=== PATIENT | female | born 1980 | race Caucasian/White ===

== ENCOUNTER 2018-03-03 12:18 | Emergency (ER) | payer MEDICAID, SELFPAY ==
[2018-03-03 12:23] VITALS: BP 121/90; PULSE 80; RESP 16; TEMP 36.9; O2SAT 100
--- NOTE | 2018-03-03 12:33 | DI.RAD_ITS ---
SYMPTOM/DIAGNOSIS: FALL, POSTERIOR R PAIN PA CHEST, RIGHT RIBS: 03/03 PA chest and 2 additional views of the right ribs were obtained. No rib fracture seen. The heart is not enlarged. The lungs are clear and hyperinflated. CONCLUSION: No evidence of acute disease. Presumed COPD
--- NOTE | 2018-03-03 12:34 | W.ED.GENAD ---
Discharge Plan Disposition Patient Disposition: HOME Condition: Improving Discharge Details Chief Complaint: Nk/Back Pain Clinical Impression: Contusion of rib on right side Primary Care Provider: Don Britton ED Provider: Nakul Arevalo Home Meds and New Rx's Prescriptions: Continued aspirin [Aspir-81] 81 MG tablet,delayed release (DR/EC) 81 mg PO DAILY RF: 0 amlodipine 2.5 MG tablet 2.5 mg PO DAILY RF: 0 levothyroxine 100 MCG tablet 100 mcg PO DAILY RF: 0 amlodipine 5 MG tablet 5 mg PO DAILY RF: 0 cholecalciferol (vitamin D3) [Vitamin D3] 1,000 unit Tablet 3,000 unit PO DAILY RF: 0 Discharge Instructions Instructions: Rib Contusion (ED) Additional Instructions: Remove lidocaine patch this evening. May apply ice to reduce pain and swelling. May use Tylenol and/or ibuprofen if needed for pain. Return if you develop a fever, cough, worsening discomfort, or any other concerns Medical Decision Making 37-year-old female presents emerged department ending of right-sided back and chest pain after slip and fall on the ice last night. She did not strike her head or her neck. No injuries below the chest. She is afebrile, well-appearing. Differential diagnosis includes contusion or underlying rib fracture. Patient referred for radiographs and given ibuprofen for pain. Her diagnostic studies do not reveal acute underlying bony injury. Patient given trial of lidocaine patch for 12 hours, she may continue NSAIDs as well as ice. Return precautions to the ER were discussed prior to discharge. HPI General Mode of arrival: ambulatory. Date/Time Provider Initiated Documentation: 03/03/18 12:23. Limitations to Documentation: no limitations. Information obtained by: patient. History of Present Illness described as moderate, Quality is described as aching, and is localized to the chest and left. Patient reports no radiation. Patient started experiencing this hour(s) and it has been constant. Movement worsens symptoms . Patient notes no other symptoms.; denies shortness of breath. Related Data Home Medications Medication Instructions Recorded Confirmed amlodipine 5 mg PO DAILY 11/16/16 03/03/18 amlodipine 2.5 mg PO DAILY 04/25/17 03/03/18 levothyroxine 100 mcg PO DAILY 06/06/17 03/03/18 aspirin [Aspir-81] 81 mg PO DAILY tab-cap 06/12/17 03/03/18 cholecalciferol (vitamin D3) 3,000 unit PO DAILY 03/03/18 03/03/18 [Vitamin D3] Allergies Allergy/AdvReac Type Severity Reaction Status Date / Time cephalexin AdvReac Intermediate Skin Rash Unverified 03/03/18 12:28 General Stated Complaint: Nk/Back Pain JOYCE: 4 Review of Systems Review of Systems 6 systems reviewed and otherwise - [facility] Medical History Fracture of left clavicle (Acute) Fracture of wrist (Acute) Hypothyroidism (Chronic) Stroke (Chronic) Family History Mother Hypothyroid Lupus Neoplasm Father ALS (amyotrophic lateral sclerosis) Grandmother Neoplasm Social History Smoking/Tobacco Use Status: Never alcohol intake: never substance use type: does not use Exam Narrative Exam Narrative: GEN: awake, alert, oriented 3. Pleasant, well groomed, interactive. HEAD: Normocephalic, atraumatic ENT: Mucous membranes moist, oropharynx unremarkable, External ear exam unremarkable EYES: PERRL, EOMI NECK: Full ROM, no BARBARA, no menigismus CHEST/RESP: R posterior thoracic back tender cloth printing to palpation. No midline tenderness or step-off, clear to auscultation bilateral, no wheeze/rhonchi/rales CARDIOVASCULAR: RRR, no murmur, rub nataliia. 2+ Rad pulse bilateral ABDOMEN: Soft, nontender, no mass. +Bowel sounds EXT: Full ROM, no edema, no rash Neuro: Grossly normal neurologic exam, conversant, interactive. Psych: Speech fluent, thoughts congruent, affect normal Course Vital Signs Temperature 36.9 C 03/03/18 12:23 Pulse 80 03/03/18 12:23 Respiratory Rate 16 03/03/18 12:23 Blood Pressure 121/90 03/03/18 12:23 Pulse Oximetry 100 03/03/18 12:23 Temperature 36.9 C 03/03/18 12:23 Temperature Source Skin 03/03/18 12:23 Pulse 80 03/03/18 12:23 Respiratory Rate 16 03/03/18 12:23 Respiratory Effort Non-Labored 03/03/18 12:25 Blood Pressure 121/90 03/03/18 12:23 Pulse Oximetry 100 03/03/18 12:23 Pain Level 10 03/03/18 12:23
[2018-03-03] MEDS: Ibuprofen 800 MG TAB PO (13:04)
--- NOTE | 2018-03-03 13:32 | DI.VRAD_ITS ---
EXAM: XR Right Ribs with PA Chest, 3 Views EXAM DATE/TIME: 03/03/2018 12:34 PM CLINICAL HISTORY: 37 years old, female; Injury or trauma; Fall; Initial encounter; Rib area; Blunt trauma (contusions or hematomas); Injury date: 03/02; Patient HX: Fall, posterior rib pain; Additional info: Per PT: Fall occurred evening of 03/02 TECHNIQUE: XR Right ribs 3 views with PA chest. COMPARISON: CR RIGHT CLAVICLE LIMITED 1 VIEW 07/10/2017 10:59 AM FINDINGS: Lungs: Hyperexpanded lung crowley consistent with COPD Pleural space: Unremarkable. No pleural effusion. No pneumothorax. Heart/Mediastinum: Unremarkable. No cardiomegaly. Bones/joints: Healed distal right clavicle fractures. No acute fracture IMPRESSION: Hyperexpanded lung crowley consistent with COPD No acute fracture Dictated and Authenticated by: Ben Schaefer MD. Ordering:DEENA Mota MD
[2018-03-03] MEDS: Lidocaine 5% Patch 1 PATCH TP (13:41)
== END 2018-03-03 13:45 | disposition home or self-care (01) ==
PROVIDERS: Emergency Provider Emergency Medicine; PCP General Practice
DX: S20.221A Contusion of right back wall of thorax, initial encounter (principal); W00.0XXA Fall on same level due to ice and snow, initial encounter
CPT/HCPCS: 99283; 71046; 71100

== ENCOUNTER 2018-05-10 14:53 | Outpatient (REF) | payer MEDICAID, SELFPAY | END 2018-05-10 15:13 | LOC: LBN 14:53 | PROVIDERS: PCP General Practice; Visit Provider General Practice | DX: N39.0 Urinary tract infection, site not specified (principal) | CPT/HCPCS: 87077; 87086; 87186 ==

== ENCOUNTER 2018-10-24 08:01 | Outpatient (CLI) | payer MEDICAID, SELFPAY ==
[2018-10-24 09:03] LABS: HCT 41.9 % (36.0-46.0); HGB 14.5 g/dL (12.0-15.5)
[2018-10-24 10:15] LABS: Glucose 88 mg/dL (70-100); TSH 0.27 uIU/mL (0.36-3.74)
== END 2018-10-24 08:21 ==
PROVIDERS: PCP General Practice; Visit Provider General Practice
DX: I95.9 Hypotension, unspecified (principal); E03.9 Hypothyroidism, unspecified; R73.09 Other abnormal glucose
CPT/HCPCS: 36415; 82947; 84443; 85014; 85018

== ENCOUNTER 2018-12-04 08:10 | Outpatient (CLI) | payer MEDICAID, SELFPAY ==
[2018-12-04 10:07] LABS: TSH 2.83 uIU/mL (0.36-3.74)
== END 2018-12-04 08:30 ==
PROVIDERS: PCP General Practice; Visit Provider General Practice
DX: E03.9 Hypothyroidism, unspecified (principal)
CPT/HCPCS: 36415; 84443

== ENCOUNTER 2019-04-16 02:14 | Outpatient (CLI) | payer MEDICAID, SELFPAY ==
--- NOTE | 2019-04-16 15:49 | DI.DEXA_ITS ---
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 Findings for left hip scanning are T-score -3.6 with left femoral neck T-score -3.5. Findings for lumbar spine scanning are T-score -4.9. Findings for left forearm scanning are T-score -4.6. IMPRESSION: Findings are consistent with osteoporosis according to WHO criteria. Lateral vertebral scanogram show s no definite vertebral compression fracture.
--- NOTE | 2019-04-16 16:18 | DI.MAMMO_ITS ---
EXAM: MAMMO SCREENING CLINICAL HISTORY: [id number], FAM HX BREAST CANCER Z80.3 TECHNIQUE: Mammograms were interpreted according to the usual protocol including computer analysis w [employer] CAD system, tomosynthesis and C-view imaging. FINDINGS: The breasts are of moderate density with fairly symmetrical distribution of fibroglandular tissue. N o dominant mass or clumped microcalcification is identified in either breast. Today's examination is a baseline examination. IMPRESSION: No specific evidence of malignancy at this time. Routine screening examinations are suggested at year ly intervals due to the family history of breast carcinoma. Category 1. Breast density, category B. BI-RADS Cat 1 - Negative. Breast Density - Category B - Scattered areas of fibroglandular density.
== END 2019-04-16 02:34 ==
PROVIDERS: PCP General Practice; Visit Provider Nurse Practitioner Women's Health
DX: Z12.31 Encounter for screening mammogram for malignant neoplasm of breast (principal); Z80.3 Family history of malignant neoplasm of breast; E28.39 Other primary ovarian failure; M81.0 Age-related osteoporosis without current pathological fracture
CPT/HCPCS: 77063; 77067; 77080

== ENCOUNTER 2020-07-20 03:28 | Outpatient (CLI) | payer MEDICAID, SELFPAY ==
[2020-07-20 14:12] LABS: Anion Gap 7.2 mmol/L (3-11); BUN 16 mg/dL (7-18); CO2 30.8 mmol/L (21.0-32.0); CREATININE 0.8 mg/dL (0.55-1.02); Calcium 9.7 mg/dL (8.5-10.1); Chloride 105 mmol/L (98-107); Glucose 79 mg/dL (74-106); Potassium 4.4 mmol/L (3.5-5.1); Sodium 143 mmol/L (136-145); TSH (W/Ref FT4) 4.61 uIU/mL (0.36-3.74)
[2020-07-20 14:33] LABS: FREE T4 1.07 ng/dL (0.76-1.46)
[2020-07-22 01:12] LABS: Vitamin D 25 Total 86.5 ng/mL (30-100)
== END 2020-07-20 03:29 | disposition home or self-care (01) ==
LOC: LBO 03:28
PROVIDERS: PCP Internal Medicine; Visit Provider Internal Medicine
DX: I10 Essential (primary) hypertension (principal); E03.9 Hypothyroidism, unspecified; E55.9 Vitamin D deficiency, unspecified; M81.0 Age-related osteoporosis without current pathological fracture
CPT/HCPCS: 36415; 80048; 82306; 84439; 84443

== ENCOUNTER 2020-08-03 02:54 | Outpatient (RCR) | payer MEDICAID, SELFPAY ==
[2020-08-03] MEDS: Normal Saline Flush 10 ML SYR IVP (13:25)
== END 2020-08-09 23:59 | disposition home or self-care (01) ==
LOC: INF 02:54
PROVIDERS: PCP Internal Medicine; Visit Provider Internal Medicine
DX: M81.0 Age-related osteoporosis without current pathological fracture (principal)
CPT/HCPCS: 96365; J3489

== ENCOUNTER 2021-02-10 02:42 | Outpatient (CLI) | payer MEDICAID, SELFPAY ==
[2021-02-10 12:02] LABS: Lipase 77 U/L (73-393)
[2021-02-11 21:15] LABS: Tissue Transglutaminase Ab IgA <1.2 U/mL
== END 2021-02-10 02:43 | disposition home or self-care (01) ==
LOC: LBO 02:42
PROVIDERS: PCP Internal Medicine; Visit Provider Internal Medicine
DX: K52.9 Noninfective gastroenteritis and colitis, unspecified (principal)
CPT/HCPCS: 36415; 83690; 83516

== ENCOUNTER 2021-08-10 03:35 | Outpatient (RCR) | payer MEDICAID, SELFPAY ==
[2021-08-10] MEDS: Normal Saline Flush 10 ML SYR IVP (12:49)
[2021-08-10] MEDS: ZOLEDRONIC ACID/MANNITOL/WATER 5 MG/100 ML BTL 300 MG IVPB (12:49)
== END 2021-09-08 23:59 | disposition home or self-care (01) ==
LOC: INF 03:35
PROVIDERS: PCP Internal Medicine; Visit Provider Internal Medicine
DX: M81.0 Age-related osteoporosis without current pathological fracture (principal)
CPT/HCPCS: 96365; J3489

== ENCOUNTER 2021-08-13 10:29 | Emergency (ER) | payer MEDICAID, SELFPAY ==
[2021-08-13 10:32] VITALS: BP 134/89; PULSE 67; RESP 16; TEMP 36.6; O2SAT 99
--- NOTE | 2021-08-13 10:40 | ED.GENADUL_ITS ---
Discharge Plan Disposition Patient Disposition: HOME Condition: Improving Discharge Details Clinical Impression: Dizziness, Nausea Primary Care Provider: Corrie Hurtado ED Provider: Xiomy Judd Home Meds and New Rx's Prescriptions: Continued calcium-vitamin D3-vitamin K [Viactiv] 650 mg-12.5 mcg-40 mcg tablet,chewable 2 tab PO DAILY amlodipine 5 mg tablet 5 mg PO DAILY Qty: 90 3RF zoledronic [id number]-jcdrk [Reclast] 5 mg/100 mL piggyback See Rx Instructions IV ONCE Qty: 100 0RF Rx Instructions: 5mg IV once; administer over at least 15 mins aspirin [Aspir-81] 81 MG tablet,delayed release (DR/EC) 81 mg PO DAILY levothyroxine [Synthroid] 88 mcg tablet 88 mcg PO DAILY Qty: 90 2RF Discharge Instructions Instructions: Acute Nausea and Vomiting (ED), Dizziness (ED) Additional Instructions: Your lab work, EKG and imaging today is reassuring and shows no evidence of acute concerning or significant findings. Drink plenty of fluids and get plenty of rest. Alternate tylenol and motrin as needed and directed for pain. Follow-up with your primary care doctor in 1 week. Return to the emergency department with any worsening or new concerning symptoms. Please be aware that you were seen during a time of global shortage of iodinated contrast media. This means an alternative approach to your diagnosis and treatment may have been employed in order to provide optimal care during this shortage. If you have any worsening symptoms, please go to the nearest Emergency Department or call 911 immediately. Discharge Data Discharge Date/Time-TO BE ENTERED AT DEPARTURE: 08/13/21 13:36 Discharge Physician: Xiomy Judd Medical Decision Making 1045 -- 41-year-old female with a history Spence syndrome, carotid artery dissection with, carotid artery stent placement, hypertension, hypothyroidism, irritable bowel syndrome and depression presents with intermittent dizziness, nausea and dry heaving with a 20-minute episode of blurry vision earlier today. She currently denies any symptoms other than my head feeling heavy . She states her symptoms appear inconsistent with her previous carotid dissection in which she had severe headache, and left-sided weakness and numbness which she states she does not have today. She states this is the fifth episode of this dizziness, nausea and blurry vision over the past 2 weeks but states today's episode is lasting longer than usual. Patient appears comfortable and nontoxic. She is easily ambulatory around the room. Vitals are within normal limits. Her abdomen is soft and nontender. She has no focal deficits or meningeal signs. Differential diagnosis includes dehydration, electrolyte abnormality, acute viral process, influenza, COVID-19, UTI, arrhythmia. History and presentation does not appear consistent with subarachnoid hemorrhage and she denies any thunderclap sensation or sudden onset of headache. History and presentation does not appear consistent with meningitis, PE or dissection. Will place an IV, bolus IV fluids, screening labs, urinalysis, urine , CT head, chest x-ray and EKG. Due to global IV contrast shortage, will hold on CT head imaging with IV contrast as her presentation does not appear consistent with acute CVA at this time and patient is agreeable with this plan. 1320 --labs and imaging reviewed and unremarkable. Normal white blood cell count. Normal electrolytes. Urinalysis notes 3-5 WBCs with trace leukocyte esterase, many bacteria but also with many epithelial cells but appears contaminated. She has no urinary symptoms so we will hold on treatment for UTI at this time. Fluvid negative. CT head and chest x-ray negative. Visual acuity notes 20/40 bilaterally corrected. Patient reassessed and she is requesting to go home. She was able to take p.o. and denies any symptoms at this time. Advised to increase fluids, rest. She was offered Zofran for home but declined. Advised to follow up with the primary care doctor for re-evaluation. Usual and customary return precautions given prior to discharge. Medical Records Medical records reviewed: Yes I reviewed the patient's medical records. Imaging Data Radiologic Study: Radiologist's impression: CT Head Without Contrast Exam date and time: 08/13/2021 11:56 AM Age: 41 years old Clinical indication: Dizziness; Patient HX: R/O acute disease. TECHNIQUE: Imaging protocol: Computed tomography of the head without contrast. Radiation optimization: All CT scans at this facility use at least one of these dose optimization techniques: automated exposure control; mA and/or kV adjustment per patient size (includes targeted exams where dose is matched to clinical indication); or iterative reconstruction. COMPARISON: CT HEAD WITHOUT CONTRAST 11/16/2016 11:28 AM FINDINGS: Brain: No acute infarction. No intracranial hemorrhage. No mass effect or midline shift. Stable chronic lacunar infarct in the right caudate head. Cerebral ventricles: Stable asymmetry of the lateral ventricles. No hydrocephalus. Paranasal sinuses: Mild ethmoid sinus disease. Mastoid air cells: Visualized mastoid air cells are well aerated. Orbital cavities: Mild symmetric prominence of the lacrimal glands of uncertain significance. Otherwise, unremarkable. Bones/joints: No calvarial fracture.? Soft tissues: Unremarkable. IMPRESSION: No acute intracranial abnormality. No significant interval change. XR Chest Exam date and time: 08/13/2021 12:01 PM Age: 41 years old Clinical indication: Other: Dizziness, R/O acute disease TECHNIQUE: Imaging protocol: XR of the chest. Views: 2 views. COMPARISON: CR XR ribs RT PA chest 3V 03/03/2018 12:49 PM FINDINGS: Lungs: No consolidation. Hyperexpanded lungs, possibly COPD. Pleural spaces: Unremarkable. No pleural effusion. No pneumothorax. Heart/Mediastinum: Cardiomediastinal countour within normal limits.? Bones/joints: Redemonstration of a healed distal right clavicular fracture. IMPRESSION: No acute cardiopulmonary process. No significant change. Lab Data Lab results reviewed: Yes I reviewed the patient's lab results. Labs: Laboratory Tests Range/Units 08/13/21 08/13/21 08/13/21 11:25 11:25 11:25 WBC (4.4-10.8) 10^3/uL 6.73 RBC (3.93-5.22) 10^6/uL 4.31 Hgb (11.2-15.7) g/dL 15.3 Hct (36.0-46.0) % 45.9 MCV (80-95) fL 107 H MCH (27.0-33.0) pg 35.5 H MCHC (32.0-36.0) % 33.3 RDW (11.7-14.6) % 11.6 L Plt Count (130-400) 10^3/uL 239 MPV (8.0-11.0) fL 10.5 Immature Gran % 0.1 Neutrophils % 69.8 Lymphocytes % 21.8 Monocytes % 7.0 Eosinophils % 0.9 Basophils % 0.4 Nucleated RBC % (0.0-0.3) % 0.0 Absolute Neutrophils (1.2-6.7) 10^3/uL 4.69 Absolute Lymphocytes (1.2-3.4) 10^3/uL 1.47 Absolute Monocytes (0.1-0.8) 10^3/uL 0.47 Absolute Eosinophils (0.0-0.7) 10^3/uL 0.06 Absolute Basophils (0.0-0.2) 10^3/uL 0.03 RBC Morphology See Below Macrocytosis 2+ Sodium (136-145) mmol/L 140 Potassium (3.5-5.1) mmol/L 3.9 Chloride (98-107) mmol/L 105 Carbon Dioxide (21.0-32.0) mmol/L 28.0 Anion Gap (3-11) mmol/L 7.0 BUN (7-18) mg/dL 8 Creatinine (0.55-1.02) mg/dL 0.8 Estimated GFR/1.73 m2 (mL/min/1.73m2) >= 60.00 Glucose (74-106) mg/dL 106 Calcium (8.5-10.1) mg/dL 8.7 Total Bilirubin (0.2-1.0) mg/dL 0.7 AST (15-37) U/L 21 ALT (14-59) U/L 19 Alkaline Phosphatase (46-116) U/L 66 Total Protein (6.4-8.2) g/dL 7.7 Albumin (3.4-5.0) g/dL 4.0 TSH (0.36-3.74) uIU/mL Urine Color (Yellow) Urine Clarity (Clear) Urine pH (5-8) Ur Specific [place] (1.005-1.025) Urine Protein (Negative) mg/dL Urine Ketones (Negative) mg/dL Urine Blood (Negative) Urine Nitrite (Negative) Urine Bilirubin (Negative) Urine Urobilinogen (Up TO 0.2) EU/dL Ur Leukocyte Esterase (Negative) Urine RBC (0-2) HPF Urine WBC (0-5) HPF Ur Epithelial Cells (Negative) HPF Urine Crystals (Negative) HPF Urine Bacteria (Negative) HPF Urine Casts (Negative) LPF Urine Mucus (Negative) Ur Culture Indicated? Urine Glucose (Negative) mg/dL COVID-19 Source Nasopharynx SARS-CoV-2 (PCR) (Negative) Negative Influenza Type A (PCR) (Negative) Negative Influenza Type B (PCR) (Negative) Negative RSV (PCR) (Negative) Negative Range/Units 08/13/21 08/13/21 11:25 11:25 WBC (4.4-10.8) 10^3/uL RBC (3.93-5.22) 10^6/uL Hgb (11.2-15.7) g/dL Hct (36.0-46.0) % MCV (80-95) fL MCH (27.0-33.0) pg MCHC (32.0-36.0) % RDW (11.7-14.6) % Plt Count (130-400) 10^3/uL MPV (8.0-11.0) fL Immature Gran % Neutrophils % Lymphocytes % Monocytes % Eosinophils % Basophils % Nucleated RBC % (0.0-0.3) % Absolute Neutrophils (1.2-6.7) 10^3/uL Absolute Lymphocytes (1.2-3.4) 10^3/uL Absolute Monocytes (0.1-0.8) 10^3/uL Absolute Eosinophils (0.0-0.7) 10^3/uL Absolute Basophils (0.0-0.2) 10^3/uL RBC Morphology Macrocytosis Sodium (136-145) mmol/L Potassium (3.5-5.1) mmol/L Chloride (98-107) mmol/L Carbon Dioxide (21.0-32.0) mmol/L Anion Gap (3-11) mmol/L BUN (7-18) mg/dL Creatinine (0.55-1.02) mg/dL Estimated GFR/1.73 m2 (mL/min/1.73m2) Glucose (74-106) mg/dL Calcium (8.5-10.1) mg/dL Total Bilirubin (0.2-1.0) mg/dL AST (15-37) U/L ALT (14-59) U/L Alkaline Phosphatase (46-116) U/L Total Protein (6.4-8.2) g/dL Albumin (3.4-5.0) g/dL TSH (0.36-3.74) uIU/mL 0.84 Urine Color (Yellow) Yellow Urine Clarity (Clear) Clear Urine pH (5-8) 7.5 Ur Specific [place] (1.005-1.025) 1.020 Urine Protein (Negative) mg/dL 30 H Urine Ketones (Negative) mg/dL Negative Urine Blood (Negative) Negative Urine Nitrite (Negative) Negative Urine Bilirubin (Negative) Negative Urine Urobilinogen (Up TO 0.2) EU/dL 0.2 Ur Leukocyte Esterase (Negative) Trace H Urine RBC (0-2) HPF 0-2 Urine WBC (0-5) HPF 3-5 Ur Epithelial Cells (Negative) HPF Many Urine Crystals (Negative) HPF Negative Urine Bacteria (Negative) HPF Many Urine Casts (Negative) LPF Negative Urine Mucus (Negative) Trace Ur Culture Indicated? No/Sq. Contamination Urine Glucose (Negative) mg/dL Negative COVID-19 Source SARS-CoV-2 (PCR) (Negative) Influenza Type A (PCR) (Negative) Influenza Type B (PCR) (Negative) RSV (PCR) (Negative) ECG Data Attestation: I personally reviewed and interpreted this ECG (s) as follows: Interpretation: Rate of 64, sinus, normal axis, no STEMI. HPI General Mode of arrival: ambulatory . Date/Time Provider Initiated Documentation: 08/13/21 10:30 . Limitations to Documentation: no limitations . Information obtained by: patient . HPI Narrative: Patient is a 41-year-old female with a history of Spence syndrome, carotid artery dissection, hypertension, hypothyroidism, depression, common carotid artery stent placement who presents with dizziness, nausea and dry heaving since 6 AM this morning. She states she mostly has the symptoms when she is up and walking around. She states she currently feels like my head is heavy but denies any headache. She states she woke up this morning and felt dizzy which she described as a lightheadedness sensation while in bed. She states when she got up and walked around her dizziness became worse and she had nausea and dry heaving. She states around this time she attempted to look at her phone and her vision appeared blurry. She states the blurry vision lasted approximately 20 minutes and then resolved. She currently denies any dizziness or nausea. She states she was not able to actually vomit anything and was mainly dry heaving. She states she had 2 episodes of watery brown diarrhea yesterday which not unusual for her. She states this is the fifth episode of the symptoms occurring over the last 2 weeks. She states she has not sought any medical care for the symptoms since this started. She states episode today is different and that it is lasting longer than usual. She states her history of carotid artery dissection presentation is very different from today and that with her dissection she had severe headache with left face, arm and leg numbness and weakness and she denies any B symptoms at present. She denies otherwise recent illness including fever, sore throat, ear pain, chest pain, shortness of breath or urinary symptoms. She states she is fully vaccinated for COVID including a booster and denies any known exposure to coronavirus. Related Data Home Medications Medication Instructions Recorded Confirmed aspirin 81 mg tablet,delayed 81 mg PO DAILY 06/12/17 08/13/21 release (Aspir-) calcium 650 mg-vitamin D3 12.5 2 tab PO DAILY 12/24/19 08/13/21 mcg-vitamin K 40 mcg chewable tablet (Viactiv) zoledronic acid 5 mg/100 mL in See Rx Instructions IV ONCE #100 mL 06/22/20 08/13/21 mannitol 5 %-water intravenous piggybck (Reclast) amlodipine 5 mg tablet 5 mg PO DAILY #90 tabs 01/19/21 08/13/21 levothyroxine 88 mcg tablet 88 mcg PO DAILY #90 tabs 08/12/21 08/13/21 (Synthroid) Previous Rx's Medication Instructions Recorded zoledronic acid 5 mg/100 mL in See Rx Instructions IV ONCE #100 mL 06/22/20 mannitol 5 %-water intravenous piggybck (Reclast) amlodipine 5 mg tablet 5 mg PO DAILY #90 tabs 01/19/21 levothyroxine 88 mcg tablet 88 mcg PO DAILY #90 tabs 08/12/21 (Synthroid) Allergies Allergy/AdvReac Type Severity Reaction Status Date / Time ragweed pollen Allergy Intermediate stuffy, Verified 08/13/21 10:38 sneezing cephalexin Allergy Mild Skin Rash Verified 08/13/21 10:38 General Stated Complaint: Dizzy/Sync JOYCE: 3 Review of Systems All systems reviewed & are unremarkable except as noted in HPI and below Constitutional Constitutional: Denies chills, Denies excessive sweating, Denies fatigue, Denies fever(s), Denies weakness and Denies weight loss Eyes Eyes: Reports system reviewed and no additional complaints, except as documented and Denies blurry vision ENT Ears, Nose, Mouth, and Throat: Denies vertigo, Reports dizziness, Denies otalgia, Denies nasal congestion, Denies sore throat and Denies throat swelling Cardiovascular Cardiovascular: Denies chest pain, Denies syncope, Denies rapid heart rate and Denies dyspnea Respiratory Respiratory: Denies chest congestion, Denies cough, Denies pain on inspiration and Denies dyspnea Gastrointestinal Gastrointestinal: Denies abdominal pain, Denies diarrhea, Reports nausea and Denies vomiting Genitourinary Genitourinary: Denies hematuria, Denies dysuria and Denies flank pain Musculoskeletal Musculoskeletal: Denies back pain and Denies joint swelling Integumentary/Breasts Skin/Breast: Denies lesions and Denies rash Neurologic Neurologic: Denies behavioral changes, Denies confusion, Denies vertigo, Reports dizziness, Denies syncope, Denies localized weakness and Denies weakness Psychiatric Psychiatric: Denies behavioral changes, Denies confusion and Denies depression Endocrine Endocrine: Denies excessive sweating and Denies fatigue Hematologic/Lymphatic Hematologic/Lymphatic: Denies easy bruising and Denies lymphadenopathy Allergic/Immunologic Allergic/Immunologic: Denies throat swelling PFSH All Active Problems (Updated 08/13/21 @ 13:32 by Xiomy Judd DO) Dizziness (Acute) Nausea (Acute) Insomnia (Chronic) Urinary frequency (Chronic) 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 Vitamin D deficiency (Chronic) Stroke (Chronic ~11/13/16) (R) MCA s/p TPA due to (R) ICA dissection Osteoporosis (Chronic ~2018) Medical History (Updated 08/13/21 @ 13:32 by Xiomy Judd DO) Carotid artery dissection Depression Femoral artery occlusion, right (~10/2017) Hypertension Hypothyroidism (10/30/17) Irritable bowel syndrome Spence's syndrome (08/1980) Surgical History (Updated 12/24/19 @ 20:41 by Corrie Hurtado MD) H/O fasciotomy (~10/29/17) History of common carotid artery stent placement S/P arthroscopy of left shoulder (~2001) Family History (Updated 12/09/19 @ 15:36 by Tuyet Hernandez) Mother Hypothyroid Lupus Breast cancer Cervical cancer Lung cancer Father ALS (amyotrophic lateral sclerosis) Substance abuse Grandmother Neoplasm breast Paternal Grandfather Substance abuse Maternal Grandfather Heart disease Other Thyroid cancer Social History (Updated 12/24/19 @ 13:35 by Vonda Cardenas LPN) Smoking/Tobacco Use Status: Former Tobacco Use Quit Date: 11/10/16 Tobacco: How many years used: 24 Smoking risk assessment performed?: Yes Alcohol Intake: current Alcohol Intake frequency: a few times a week Alcohol type: beer Drug use: Never Substance use type: does not use Adopted: No Caregiver/Support person: No Foster care: No Household members: none Housing: apartment Do you need help understanding health information?: Rarely current occupation: [employer], [employer] Sexually active: Yes Do you think of yourself as: straight/heterosexual Current gender identity: female What type of physical activity do you participate in: walking Frequency: 1-2 times per week Seatbelt use: always Drive intox or ride w/intox 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 Water heater temp set <120 deg: Yes Working smoke detector in home: Yes Fire extinguisher in home: Yes Carbon monox detector in home: Yes Do you feel safe in your relationship?: Yes History History 0 Para Hx # Term Pregnancies Multiple births Hx # Pregnancies Ectopic pregnancies AB induced Hx Number of Living Children AB spontaneous Exam Const General: cooperative and no acute distress Orientation: alert, awake and oriented x3 HENMT Head: normal to inspection Ears: hearing grossly normal bilaterally, external ears normal and TM's normal bilaterally General nose exam: external nose normal Face and sinus: normal facial exam Mouth: oral mucosae normal Teeth and gingiva: dentition normal Throat: posterior oropharynx normal Eyes General: appearance normal, both eyes and all related structures Eyelids: eyelids normal Pupils: PERRL EOM: EOM intact bilaterally Neck Neck: normal visual inspection Lymphatic: no lymphadenopathy noted Chest Chest: normal inspection of the chest Resp Effort & Inspection: normal respiratory effort and able to speak in complete sentences Auscultation: clear to auscultation bilaterally Cardio Rate: regular rate Rhythm: regular rhythm GI Inspection: normal to inspection Palpation: soft, not firm, no guarding, no hepatosplenomegaly, no masses and nontender Auscultation: normal bowel sounds Back/Spine/Pelvis Back: no CVA tenderness Skin General skin exam: no rashes or lesions noted Neuro General: patient alert, patient awake and patient oriented x3 Cognition: normal cognition Speech: speech normal Gait: normal gait Motor: muscle tone normal throughout Sensory Exam: no sensory deficits noted Extrem General: normal to inspection, full ROM and capillary refill normal Psych Appearance: grossly normal Mental Status: mental status grossly normal Speech and Movement: speech and movement normal Affect: normal affect Thought Process: normal Course Vital Signs Vital signs: Vital Signs Temperature 97.9 F 08/13/21 10:32 Pulse 67 08/13/21 10:32 Respiratory Rate 16 08/13/21 10:32 Blood Pressure 134/89 08/13/21 10:32 Pulse Oximetry 99 08/13/21 10:32 Temperature 97.9 F 08/13/21 10:32 Temperature Source Temporal Artery Scan 08/13/21 10:32 Pulse 67 08/13/21 10:32 Respiratory Rate 16 08/13/21 10:32 Respiratory Effort 08/13/21 10:36 Blood Pressure 134/89 08/13/21 10:32 Blood Pressure Position Sitting 08/13/21 10:32 Pulse Oximetry 99 08/13/21 10:32 Oxygen Delivery Method Room Air 08/13/21 10:32 Oxygen Flow Rate 0 08/13/21 10:32 Pain Level 0 08/13/21 10:32 PAWSS Have you Been Recently Intoxicated or Drunk Within the Last 30 days?: Yes Have you Ever Experienced Previous Episodes of Alcohol Withdrawal?: No Have you ever Experienced Withdrawal Seizures?: No Have you ever Experienced Delirium Tremens(DT)s?: No Have you ever undergone Alcohol Rehabilitation Treatment (i.e, inpt ot outpatient treatment programs)?: No Have you ever Experienced Blackouts?: No Have you ever Combined Alcohol with other Downers within the last 90 days?: No Positive Blood Alcohol level on Presentation? [PCS.BAL]: No Evidence of Increased Autonomic Activity (i.e. HR>120, tremor, sweating, agitation, nausea)?: No Result: 1
--- NOTE | 2021-08-13 11:15 | DI.RAD_ITS ---
Exam(s) XR CHEST 2V PA LATERAL EXAM: XR CHEST 2V PA LATERAL CLINICAL HISTORY: dizziness, r/o acute disease. TECHNIQUE: 2D digital imaging was performed. COMPARISON: CR XR ribs RT PA chest 3V from 03/03/2018 FINDINGS: 2 views: Heart size is normal. The mediastinum is not widened. Lung crowley are again noted to be hyperinflated. No infiltrates nor pleural effusions. No pneumothorax. IMPRESSION: No acute pulmonary findings.Hyperinflation again noted. DATA REPOSITORY: RADIATION DOSE DELIVERED:
--- NOTE | 2021-08-13 11:15 | DI.CT_ITS ---
Exam(s) CT HEAD WO EXAM: CT HEAD WO CLINICAL HISTORY: dizziness, blurry vision, r/o acute process. TECHNIQUE: Imaging Protocol: Axial computed tomography images with coronal and sagittal reformatted images were created and reviewed COMPARISON: CT CTA BRAIN AND NECK from 11/16/2016 FINDINGS: There are no skull fractures nor fluid in the visualized paranasal sinuses. There is no evidence of intracranial hemorrhage, mass effect, or shift of midline structures. There are no extra-axial fluid collections. The ventricles are again noted to be asymmetric but this remai ns unchanged from 2017. Not further enlarged or shifted and there is no blood within the ventricular system nor within the basal cisterns. Lacunar infarct in the right caudate nucleus again noted. IMPRESSION: No acute intracranial findings on this noninfused CT scan of the brain. Findings as above but with minimal change from November 2016. RADIATION DOSE DELIVERED: 608.03mGy.cm Total DLP DATA REPOSITORY: All CT scans at this facility are submitted to the National Radiology Data Registry (NRDR) Dose Index Registry (DIR) with the [employer] (ACR). RADIATION OPTIMIZATION: All CT scans at this facility use at least one of these dose optimization te chniques: automated exposure control; mA and/or kV adjustment per patient size (includes targeted exa ms where dose is matched to clinical indication); or iterative reconstruction.
--- NOTE | 2021-08-13 11:15 | RT.EKG_ITS ---
APPROVED REPORT Exam: Resting ECG Reason for Exam: dizziness Patient Location: E HR:64 bpm ECG Measurements Heart Rate 64 AXIS NM 129 P 43 QRSd 87 QRS 25 QT 425 T 7 QTc 437 Conclusion Sinus rhythm...normal P axis, V-rate 60- 99 Probable left atrial enlargement...P >50mS, <-0.10mV V1. Sinus. Normal axis. No STEMI. I have reviewed and interpreted ECG and agree with software generated interpretation.
[2021-08-13] MEDS: Normal Saline 1,000 ML 1000 ML IV (11:29)
[2021-08-13 11:31] LABS: Abs Immature Grans 0.01 10^3/uL (0.0-0.06); Absolute Basophil Count 0.03 10^3/uL (0.0-0.2); Absolute Eosinophil Count 0.06 10^3/uL (0.0-0.7); Absolute Lymphocyte Count 1.47 10^3/uL (1.2-3.4); Absolute Monocyte Count 0.47 10^3/uL (0.1-0.8); Absolute Neutrophil Count 4.69 10^3/uL (1.2-6.7); Basophils % 0.4; Eosinophils % 0.9; HCT 45.9 % (36.0-46.0); HGB 15.3 g/dL (11.2-15.7); Immature Grans % 0.1; Lymphocytes % 21.8; MCH 35.5 pg (27.0-33.0); MCHC 33.3 % (32.0-36.0); MCV 107 fL (80-95); MPV 10.5 fL (8.0-11.0); Neutrophils % 69.8; Platelet Count 239 10^3/uL (130-400); RBC 4.31 10^6/uL (3.93-5.22); RDW 11.6 % (11.7-14.6); RDW-SD 46.4 fL; WBC 6.73 10^3/uL (4.4-10.8)
[2021-08-13 11:34] LABS: Bilirubin Negative (Negative); Blood Negative (Negative); Clarity Clear (Clear); Glucose Negative (Negative); Ketones Negative (Negative); Leukocyte Esterase Trace (Negative); Nitrite Negative (Negative); Urobilinogen 0.2 EU/dL (Up TO 0.2); pH 7.5 (5-8)
[2021-08-13 11:41] LABS: Bacteria Many HPF (Negative); C & S Indicated? No/Sq. Contamination; Casts Negative LPF (Negative); Crystals Negative HPF (Negative); Epithelial Cells Many HPF (Negative); Mucus Trace (Negative); RBC 0-2 HPF (0-2)
[2021-08-13 11:47] LABS: ALT 19 U/L (14-59); AST 21 U/L (15-37); Alkaline Phosphatase 66 U/L (46-116); BUN 8 mg/dL (7-18); Bilirubin, Total 0.7 mg/dL (0.2-1.0); CREATININE 0.8 mg/dL (0.55-1.02); Calcium 8.7 mg/dL (8.5-10.1); Chloride 105 mmol/L (98-107); Glucose 106 mg/dL (74-106); Potassium 3.9 mmol/L (3.5-5.1); Sodium 140 mmol/L (136-145); Total Protein 7.7 g/dL (6.4-8.2)
[2021-08-13 11:57] LABS: TSH (W/Ref FT4) 0.84 uIU/mL (0.36-3.74)
[2021-08-13 12:03] LABS: Diff Comment Diff Reviewed; Macrocytosis 2+
--- NOTE | 2021-08-13 12:14 | DI.VRAD_ITS ---
PROCEDURE INFORMATION: Exam: CT Head Without Contrast Exam date and time: 08/13/2021 11:56 AM Age: 41 years old Clinical indication: Dizziness; Patient HX: R/O acute disease. TECHNIQUE: Imaging protocol: Computed tomography of the head without contrast. Radiation optimization: All CT scans at this facility use at least one of these dose optimization techniques: automated exposure control; mA and/or kV adjustment per patient size (includes targeted exams where dose is matched to clinical indication); or iterative reconstruction. COMPARISON: CT HEAD WITHOUT CONTRAST 11/16/2016 11:28 AM FINDINGS: Brain: No acute infarction. No intracranial hemorrhage. No mass effect or midline shift. Stable chronic lacunar infarct in the right caudate head. Cerebral ventricles: Stable asymmetry of the lateral ventricles. No hydrocephalus. Paranasal sinuses: Mild ethmoid sinus disease. Mastoid air cells: Visualized mastoid air cells are well aerated. Orbital cavities: Mild symmetric prominence of the lacrimal glands of uncertain significance. Otherwise, unremarkable. Bones/joints: No calvarial fracture. Soft tissues: Unremarkable. IMPRESSION: No acute intracranial abnormality. No significant interval change. Dictated and Authenticated by: Luma Lee MD. Ordering:BRENDA Stauffer MD
[2021-08-13 12:15] LABS: COVID-19 PCR Negative (Negative); Influenza A PCR Negative (Negative); Influenza B PCR Negative (Negative); RSV PCR Negative (Negative)
[2021-08-13 12:16] LABS: Source Nasopharynx
--- NOTE | 2021-08-13 12:16 | DI.VRAD_ITS ---
PROCEDURE INFORMATION: Exam: XR Chest Exam date and time: 08/13/2021 12:01 PM Age: 41 years old Clinical indication: Other: Dizziness, R/O acute disease TECHNIQUE: Imaging protocol: XR of the chest. Views: 2 views. COMPARISON: CR XR ribs RT PA chest 3V 03/03/2018 12:49 PM FINDINGS: Lungs: No consolidation. Hyperexpanded lungs, possibly COPD. Pleural spaces: Unremarkable. No pleural effusion. No pneumothorax. Heart/Mediastinum: Cardiomediastinal countour within normal limits. Bones/joints: Redemonstration of a healed distal right clavicular fracture. IMPRESSION: No acute cardiopulmonary process. No significant change. Dictated and Authenticated by: Luma Lee MD. Ordering:BRENDA Stauffer MD
[2021-08-13] MEDS: Ondansetron 4 MG/2 ML VIAL IVP (12:56)
[2021-08-13 12:57] VITALS: BP 125/84; PULSE 70; RESP 16; TEMP 36.6; O2SAT 100
== END 2021-08-13 13:36 | disposition home or self-care (01) ==
PROVIDERS: Emergency Provider Physician Assistant; PCP Internal Medicine
DX: R42 Dizziness and giddiness (principal); R11.0 Nausea
CPT/HCPCS: 36415; 80053; 81025; 87637; 93005; 96361; 96374; 99284; 99285; 70450; 71046; 81003; 81015; 84443; 85025; 93010; J2405

== ENCOUNTER 2021-08-24 07:32 | Emergency (ER) | payer MEDICAID, SELFPAY ==
[2021-08-24] VITALS (69 sets, daily range): BP systolic 104–153; BP diastolic 74–101; PULSE 57–83; RESP 11–23; TEMP 36.6; O2SAT 96–100
--- NOTE | 2021-08-24 07:30 | RT.EKG_ITS ---
APPROVED REPORT Exam: Resting ECG Reason for Exam: dizzy nausea Patient Location: E HR:64 bpm ECG Measurements Heart Rate 64 AXIS WV 129 P 67 QRSd 98 QRS 61 QT 430 T 11 QTc 444 Conclusion Sinus rhythm...normal P axis, V-rate 60- 99 Probable left atrial enlargement...P >50mS, <-0.10mV V1 Probable left ventricular hypertrophy...(RaVL+SV3)xQRSd >300
[2021-08-24] MEDS: Ondansetron 4 MG/2 ML VIAL IVP (08:00)
[2021-08-24] MEDS: Meclizine 25 MG TAB PO (08:00)
--- NOTE | 2021-08-24 08:30 | DI.MRI_ITS ---
Exam(s) MR BRAIN WO EXAM: MR BRAIN WO CLINICAL HISTORY: dizzy, visual change, unable to gaze rt, prior cva TECHNIQUE: Multiplanar multisequence MRI of the brain was performed. COMPARISON: CT CT HEAD WO from 08/13/2021 MR MR ANGIO BRAIN WO from 08/24/2021 FINDINGS: CEREBRAL PARENCHYMA: There is no evidence of intracranial hemorrhage, mass effect, or shift of midline structures. There are no extra-axial fluid collections. Ventricular size unchanged There is signal abnormality in the right cerebellar hemisphere consistent with prior ischemic changes , nonacute. Also previously described small lacunar infarct in the right caudate nucleus is again no moriah. No new signal to suggest acute infarction. There is no significant focal signal abnormality evident on diffusion imaging to suggest acute ischem ic event. IAC'S: We performed an additional high-resolution sub millimeters slice sequence through the internal auditory canals. There is no evidence of mass in the cerebellopontine angles and no evidence of int ra canalicular acoustic neuroma/schwannoma. PITUITARY GLAND: No mass nor parasellar abnormality. No obvious abnormality in the cavernous sinuses. FLOW VOIDS: See MRA report PARANASAL SINUSES: The visualized paranasal sinuses appear unremarkable. No obvious finding ORBITS: No obvious findings. IMPRESSION: No significant acute intracranial findings on this noninfused MRI scan of the brain. Chronic appearing ischemic changes in the right cerebellar hemisphere and right caudate nucleus noted . No evidence of restricted diffusion to suggest acute ischemic event. See separate MRA report. DATA REPOSITORY:
--- NOTE | 2021-08-24 08:52 | DI.MRI_ITS ---
Exam(s) MR ANGIO BRAIN WO EXAM: MR ANGIO BRAIN WO CLINICAL HISTORY: dizzy, vertigo, prior carotid dissection, turners TECHNIQUE: Performed on a 1.5 dwaine unit with [id number] sequence. Field of view is from the [facility] base up. 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 ANTERIOR CIRCULATION: There is flow signal in both internal carotid arteries in the skull base but there is intraluminal fi lling defect within the right internal carotid artery in the uppermost neck just below where this ves zora enters the skull base-carotid canal, this being just above the previously documented dissection. This is nonocclusive. There is flow signal in both internal carotid arteries in the skull base-morales tid canals although there are thin midline what appear to be intimal flaps extending into the intraca vernous aspects of both internal carotid arteries, suspicious for dissection, nonocclusive. Both A1 segments are patent. Anterior cerebral arteries are patent although there does appear to be a focal stenosis in right anterior cerebral artery a few cm distal to its origin. Both middle cerebral arteries are patent without evidence of intraluminal filling defects nor tight s tenosis and there does not appear to be intimal flap within these vessels. Flow is demonstrated with in the distal branches of the middle cerebral arteries at the level of the sylvian fissures bilateral ly. Posterior communicating arteries are seen on both sides of the [id number]. POSTERIOR CIRCULATION: At the skull base the basilar artery is formed by both vertebral arteries and ascends to the right of midline. There is a critical stenosis in the basilar artery at the junction of the lower and mid thirds. This was not evident on the CT angiogram study of November 2016. Ther e is flow signal above this level within this vessel. Basilar artery appears to terminate as bilater al superior cerebellar arteries. The posterior cerebral arteries are predominantly supplied by poste rior communicating arteries on both sides [id number]. They appear patent. IMPRESSION: 1. In this patient who has had previous documented right internal carotid artery dissection (2016) th ere appears to be intraluminal thrombus (nonocclusive) in the uppermost right internal carotid artery in the neck and extending into the right internal carotid artery within the skull base (nonocclusive ). There is also suggestion of intimal flaps in both internal carotid arteries in the skull base, no nocclusive. 2. There is a critical stenosis in the basilar artery at the junction of the mid and lower thirds, th is finding not evident on prior CT angio study of 2017. 3. Other findings as above. See separate brain MRI dictation. DATA REPOSITORY:
--- NOTE | 2021-08-24 08:54 | W.ED.GENAD ---
Discharge Plan Disposition Patient Disposition: [facility] Condition: Critical Discharge Details Clinical Impression: Basilar artery stenosis/occlusion, Vertigo of central origin Primary Care Provider: Sue Crum ED Provider: Aron Max Home Meds and New Rx's Prescriptions: No Action calcium-vitamin D3-vitamin K [Viactiv] 650 mg-12.5 mcg-40 mcg tablet,chewable 2 tab PO DAILY amlodipine 5 mg tablet 5 mg PO DAILY Qty: 90 3RF zoledronic fstn-qgtscpsq-inicu [Reclast] 5 mg/100 mL piggyback See Rx Instructions IV ONCE Qty: 100 0RF Rx Instructions: 5mg IV once; administer over at least 15 mins aspirin [Aspir-81] 81 MG tablet,delayed release (DR/EC) 81 mg PO DAILY levothyroxine [Synthroid] 88 mcg tablet 88 mcg PO DAILY Qty: 90 2RF Medical Decision Making 900 -- 41-year-old female woke up this morning with severe vertigo and associated nausea vomiting that is worse with movement. She does have a concerning neurologic history including left carotid dissection, left-sided CVA with left intracranial hemorrhage remotely. She has some concerning neurologic findings on exam including difficulty with rightward gaze and rotary nystagmus. Concern for posterior fossa lesion. Plan to obtain MRI. I spoke with the radiologist about patient's presentation today and history and he recommends MRA of the brain and MRI of the brain. Screening EKG was reviewed and interpreted by me: Sinus rhythm 4 bpm, normal axis, left atrial enlargement. Nondiagnostic. Please see report. 1034 -- MRI brain and MRA brain was interpreted by radiology: Prior right cerebellar ischemic stroke, no acute stroke seen however there is critical stenosis of her basilar artery which is new compared to most recent prior imaging CTA 2017, she does have some anterior circulation issues as well including intimal flaps, please see radiology report. I called [facility] [place] to request transfer to neurology service. Awaiting callback. 1142 --I spoke with Dr. Darrel Garza, on-call neurology at [facility] [place], discussed ED presentation and course including diagnostics, MR imaging was sent for review. I explained my concern for new onset vertigo with critical stenosis of basilar artery. She is reviewing the case and will discuss with interventional neurology return call. 1214 --Dr. Darrel Garza returned call and will get the patient in transfer. She recommends starting heparin infusion with no bolus and also giving full dose aspirin. She recommends starting IV fluid. She recommends stat transfer for likely intervention. Spoke with the patient and she consents to air transport as quickest mode of transport. Patient had diagnostic labs performed on 08/13/2021. I did not initially think it was necessary to repeat labs today. I will send labs at this point. Lab Data Lab results reviewed: Yes I reviewed the patient's lab results. HPI General Mode of arrival: ambulatory. Date/Time Provider Initiated Documentation: 08/24/21 07:52. Limitations to Documentation: no limitations. Information obtained by: patient. HPI Narrative: 41-year-old female with history of prior carotid dissection on the left is CVA, left intracranial hemorrhage, residual difficulty swallowing, here today with chief complaint of dizziness. Dizziness started around 3 AM. She woke up with this. Symptoms are severe with any ambulation but improved while lying still. She also notes some blurred vision bilateral eyes. No associated headache. She does have associated nausea and vomiting. No fevers. No neck pain. No recent trauma. Related Data Home Medications Medication Instructions Recorded Confirmed aspirin 81 mg tablet,delayed 81 mg PO DAILY 06/12/17 08/24/21 release (Aspir-) calcium 650 mg-vitamin D3 12.5 2 tab PO DAILY 12/24/19 08/24/21 mcg-vitamin K 40 mcg chewable tablet (Viactiv) zoledronic acid 5 mg/100 mL in See Rx Instructions IV ONCE #100 mL 06/22/20 08/24/21 mannitol 5 %-water intravenous piggybck (Reclast) amlodipine 5 mg tablet 5 mg PO DAILY #90 tabs 01/19/21 08/24/21 levothyroxine 88 mcg tablet 88 mcg PO DAILY #90 tabs 08/12/21 08/24/21 (Synthroid) Previous Rx's Medication Instructions Recorded zoledronic acid 5 mg/100 mL in See Rx Instructions IV ONCE #100 mL 06/22/20 mannitol 5 %-water intravenous piggybck (Reclast) amlodipine 5 mg tablet 5 mg PO DAILY #90 tabs 01/19/21 levothyroxine 88 mcg tablet 88 mcg PO DAILY #90 tabs 08/12/21 (Synthroid) Allergies Allergy/AdvReac Type Severity Reaction Status Date / Time ragweed pollen Allergy Intermediate stuffy, Verified 08/24/21 07:40 sneezing cephalexin Allergy Mild Skin Rash Verified 08/24/21 07:40 General Stated Complaint: Nausea/Vomit/Diar JOYCE: 3 Review of Systems All systems reviewed & are unremarkable except as noted in HPI and below Constitutional Constitutional: Denies fever(s) ENT Comments: Chronic dysphagia Neurologic Neurologic: Reports as per HPI PFSH All Active Problems (Updated 08/24/21 @ 12:09 by Aron Max MD) Dizziness (Acute) Nausea (Acute) Basilar artery stenosis/occlusion (Acute) Vertigo of central origin (Acute) Insomnia (Chronic) Urinary frequency (Chronic) 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) Surgical History H/O fasciotomy (~10/29/17) History of common carotid artery stent placement S/P arthroscopy of left shoulder (~2001) Family History Mother Hypothyroid Lupus Breast cancer Cervical cancer Lung cancer Father ALS (amyotrophic lateral sclerosis) Substance abuse Grandmother Neoplasm breast Paternal Grandfather Substance abuse Maternal Grandfather Heart disease Other Thyroid cancer Social History Smoking/Tobacco Use Status: Former Tobacco Use Quit Date: 11/10/16 Tobacco: How many years used: 24 Smoking risk assessment performed?: Yes Alcohol Intake: current Alcohol Intake frequency: a few times a week Alcohol type: beer Drug use: Never Substance use type: does not use Adopted: No Caregiver/Support person: No Foster care: No Household members: none Housing: apartment Do you need help understanding health information?: Rarely 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[employer], [employer] Sexually active: Yes Do you think of yourself as: straight/heterosexual Current gender identity: female What type of physical activity do you participate in: walking Frequency: 1-2 times per week Seatbelt use: always Drive intox or ride w/intox 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 Exam Const General: cooperative and no acute distress HENMT Head: normocephalic and atraumatic Mouth: moist mucous membranes Eyes Periorbital: periorbital findings normal Conjunctivae: normal conjunctivae Sclera: normal sclerae Pupils: PERRL EOM: EOM abnormal (Unable to gaze to the right) and nystagmus (Horizontal and rotary) Neck Neck: trachea midline and supple Resp Auscultation: clear to auscultation bilaterally, no rales, no rhonchi and no wheezes Cardio Rate: regular rate and not tachycardic Rhythm: regular rhythm GI Palpation: soft, not firm, no guarding, no masses, not rigid and nontender Skin General skin exam: no rashes or lesions noted Neuro General: patient alert, patient awake and tone normal Cranial Nerves: facial strength normal, nystagmus (Horizontal and rotary), asymmetric palate elevation and other (See eye exam) Cognition: normal cognition Speech: speech normal Motor: muscle tone normal throughout and strength 5/5 throughout Sensory Exam: no sensory deficits noted Extrem General: no edema Psych Appearance: grossly normal Mental Status: mental status grossly normal Course Vital Signs Vital signs: Vital Signs Temperature 36.6 C 08/24/21 07:37 Pulse 78 08/24/21 07:37 Respiratory Rate 20 08/24/21 07:37 Blood Pressure 153/101 H 08/24/21 07:37 Pulse Oximetry 98 08/24/21 07:37 Temperature 36.6 C 08/24/21 07:37 Temperature Source Temporal Artery Scan 08/24/21 07:37 Pulse 78 08/24/21 07:37 Respiratory Rate 20 08/24/21 07:37 Respiratory Effort Non-Labored 08/24/21 07:41 Blood Pressure 153/101 H 08/24/21 07:37 Blood Pressure Position Sitting 08/24/21 07:37 Pulse Oximetry 98 08/24/21 07:37 Oxygen Delivery Method Room Air 08/24/21 07:37 Oxygen Flow Rate 0 08/24/21 07:37 Pain Level 1 08/24/21 07:37 Critical Care Time Critical Care Time Critical Care Time: Yes Total Critical Care Time: 45 Attestation: I spent greater than 45 minutes addressing this patient's immediate life threats. Please see MDM section of note. This time was spent engaged in work directly related to the patient's care, exclusive of separate procedures, and failure to initiate these interventions would have likely resulted in clinically significant or life threatening deterioration in the patient's condition. PAWSS Have you Been Recently Intoxicated or Drunk Within the Last 30 days?: No Have you Ever Experienced Previous Episodes of Alcohol Withdrawal?: No Have you ever Experienced Withdrawal Seizures?: No Have you ever Experienced Delirium Tremens(DT)s?: No Have you ever undergone Alcohol Rehabilitation Treatment (i.e, inpt ot outpatient treatment programs)?: No Have you ever Experienced Blackouts?: No Have you ever Combined Alcohol with other Downers within the last 90 days?: No Have you ever Combined Alcohol with any other Substance of Abuse during the last 90 days?: No Positive Blood Alcohol level on Presentation? [PCS.BAL]: No Evidence of Increased Autonomic Activity (i.e. HR>120, tremor, sweating, agitation, nausea)?: No Result: 0
[2021-08-24] MEDS: Aspirin 325 MG TAB PO (12:18)
[2021-08-24] MEDS: Normal Saline 1,000 ML 150 ML IV (12:22)
[2021-08-24 12:23] LABS: PTT Activated 23.7 sec (21.0-27.5)
[2021-08-24 12:38] LABS: Abs Immature Grans 0.03 10^3/uL (0.0-0.06); Absolute Basophil Count 0.02 10^3/uL (0.0-0.2); Absolute Eosinophil Count 0.02 10^3/uL (0.0-0.7); Absolute Lymphocyte Count 2.04 10^3/uL (1.2-3.4); Absolute Monocyte Count 0.44 10^3/uL (0.1-0.8); Absolute Neutrophil Count 6.84 10^3/uL (1.2-6.7); Basophils % 0.2; Eosinophils % 0.2; HCT 43.4 % (36.0-46.0); HGB 14.6 g/dL (11.2-15.7); Immature Grans % 0.3; Lymphocytes % 21.7; MCH 35.5 pg (27.0-33.0); MCHC 33.6 % (32.0-36.0); MCV 106 fL (80-95); MPV 10.9 fL (8.0-11.0); Monocytes % 4.7; Neutrophils % 72.9; Platelet Count 265 10^3/uL (130-400); RBC 4.11 10^6/uL (3.93-5.22); RDW 11.5 % (11.7-14.6); RDW-SD 45.3 fL; WBC 9.39 10^3/uL (4.4-10.8)
[2021-08-24 13:17] LABS: ALT 28 U/L (14-59); AST 17 U/L (15-37); Albumin 3.9 g/dL (3.4-5.0); Alkaline Phosphatase 66 U/L (46-116); Anion Gap 10.2 mmol/L (3-11); BUN 7 mg/dL (7-18); Bilirubin, Total 0.3 mg/dL (0.2-1.0); CO2 23.8 mmol/L (21.0-32.0); CREATININE 0.6 mg/dL (0.55-1.02); Chloride 108 mmol/L (98-107); Glucose 108 mg/dL (74-106); Magnesium 1.9 mg/dL (1.8-2.4); Potassium 4.2 mmol/L (3.5-5.1); Sodium 142 mmol/L (136-145); Total Protein 6.9 g/dL (6.4-8.2)
[2021-08-24 13:27] LABS: Troponin I < 50 ng/L (<or=60)
== END 2021-08-24 12:52 | disposition short-term general hospital (02) ==
PROVIDERS: Emergency Provider Student in an Organized Health Care Education/Training Program; PCP Nurse Practitioner Adult Health
DX: I65.1 Occlusion and stenosis of basilar artery (principal); H81.4 Vertigo of central origin
CPT/HCPCS: 36415; 70544; 80053; 93005; 99291; 70551; 83735; 84484; 85025; 85730; 93010; J2405

== ENCOUNTER 2021-09-14 02:42 | Outpatient (CLI) | payer MEDICAID, SELFPAY ==
[2021-09-14 13:32] LABS: ALT 44 U/L (14-59); AST 24 U/L (15-37); Albumin 3.7 g/dL (3.4-5.0); Alkaline Phosphatase 53 U/L (46-116); Anion Gap 8.7 mmol/L (3-11); BUN 26 mg/dL (7-18); Bilirubin, Total 0.5 mg/dL (0.2-1.0); CO2 27.3 mmol/L (21.0-32.0); CREATININE 0.9 mg/dL (0.55-1.02); Calcium 8.3 mg/dL (8.5-10.1); Chloride 104 mmol/L (98-107); Glucose 136 mg/dL (74-106); Potassium 4.1 mmol/L (3.5-5.1); Sodium 140 mmol/L (136-145); Total Protein 6.9 g/dL (6.4-8.2)
== END 2021-09-14 02:43 | disposition home or self-care (01) ==
LOC: LBO 02:42
PROVIDERS: PCP Nurse Practitioner Adult Health; Referring Provider Nurse Practitioner Adult Health; Visit Provider Nurse Practitioner Adult Health
DX: I77.71 Dissection of carotid artery (principal); I63.89 Other cerebral infarction
CPT/HCPCS: 36415; 80053

== ENCOUNTER 2021-09-18 08:35 | Emergency (ER) | payer MEDICAID, SELFPAY ==
--- NOTE | 2021-09-18 08:30 | DI.RAD_ITS ---
Exam(s) XR FOOT LT COMPLETE EXAM: XR FOOT LT COMPLETE CLINICAL HISTORY: left 2nd/3rd toe pain, r/o fx. TECHNIQUE: 2D digital imaging was performed of the left foot. Three images were obtained. AP, obli que and lateral views were obtained. COMPARISON: No exams were available for comparison FINDINGS: BONES: No acute fracture is present. No bony destructive lesion is seen. JOINTS: No dislocation present. SOFT TISSUE: Normal. IMPRESSION: Unremarkable radiographs of the left foot. DATA REPOSITORY: RADIATION DOSE DELIVERED:
--- NOTE | 2021-09-18 08:36 | W.ED.GENAD ---
Discharge Plan Disposition Patient Disposition: HOME Condition: Stable Discharge Details Clinical Impression: Left foot pain Primary Care Provider: Sue Crum ED Provider: Xiomy Judd Home Meds and New Rx's Prescriptions: Continued zoledronic [id number] [Reclast] 5 mg/100 mL piggyback See Rx Instructions IV ONCE Qty: 100 0RF Rx Instructions: 5mg IV once; administer over at least 15 mins clopidogrel [Plavix] 75 mg tablet 75 mg PO DAILY rosuvastatin [Crestor] 20 mg tablet 20 mg PO DAILY Systane (propylene glycol) 0.4-0.3 % drops 1 drp ophthalmic (eye) DAILY PRN aspirin [Aspir-81] 81 MG tablet,delayed release (DR/EC) 81 mg PO DAILY levothyroxine [Synthroid] 88 mcg tablet 88 mcg PO DAILY Qty: 90 2RF loratadine 10 mg tablet 10 mg PO DAILY PRN (Reason: allergy symptoms) Qty: 90 0RF Discharge Instructions Instructions: Arthralgia (ED) Additional Instructions: Your x-ray today is reassuring and shows no evidence of acute concerning or significant findings. Rest, ice, and elevate the affected area as much as possible. Take Tylenol as needed and directed for pain. Follow-up with your primary care doctor for reevaluation and for referral to orthopedics or podiatry if indicated. Return immediately to the emergency department if you develop any worsening or new concerning symptoms. Referrals: Joe Rouse MD [ [facility] STAFF PHYSICIAN] - Discharge Data Discharge Date/Time-TO BE ENTERED AT DEPARTURE: 09/18/21 09:31 Discharge Physician: Xiomy Judd Medical Decision Making 41-year-old female with a history of Spence syndrome, carotid artery dissection, hypertension, depression, CVA presents for left second and third toe pain for the past few weeks, worse over the past 2 days. Denies any known injury, fever. Foot appears normal to inspection. It is tender to palpation to the base of the second and third toes of the left foot. There is no evidence of cellulitis or trauma. She has neurovascular intact. History and presentation does not appear consistent with septic joint, gout and do not suspect fracture. Patient is concerned due to her history of osteoporosis for possible stress fracture. She declines medication here. Pt referred for x-ray which was negative for acute findings. Advised to follow-up with her primary care doctor for reevaluation and for referral to podiatry orthopedic if indicated. Usual and customary return precautions given prior to discharge. Medical Records Medical records reviewed: Yes I reviewed the patient's medical records. Imaging Data Radiologic Study: Radiologist's impression: XR Left Foot Exam date and time: 09/18/2021 8:54 AM Age: 41 years old Clinical indication: Other: Left 2nd/3rd toe pain, R/O FX TECHNIQUE: Imaging protocol: Radiologic exam of the Left foot. Views: 3 or more views. COMPARISON: No relevant prior studies available. FINDINGS: Bones/joints: Normal.? No fracture or dislocation.? No arthropathic change. Soft tissues: Normal. IMPRESSION: No acute findings. HPI General Mode of arrival: ambulatory. Date/Time Provider Initiated Documentation: 09/18/21 08:35. Limitations to Documentation: no limitations. Information obtained by: patient. HPI Narrative: Patient is a 41-year-old female with a history of Spence syndrome, carotid artery dissection, CVA, hypothyroidism who presents with left second and third toe pain for the past several weeks, worse over the past 2 days. Patient denies any known injury. She states pain is worse with walking and weightbearing. She does admit to relief with ice, elevation and Tylenol. Related Data Home Medications Medication Instructions Recorded Confirmed aspirin 81 mg tablet,delayed 81 mg PO DAILY 06/12/17 09/18/21 release (Aspir-) zoledronic acid 5 mg/100 mL in See Rx Instructions IV ONCE #100 mL 06/22/20 09/18/21 mannitol 5 %-water intravenous piggybck (Reclast) levothyroxine 88 mcg tablet 88 mcg PO DAILY #90 tabs 08/12/21 09/18/21 (Synthroid) clopidogrel 75 mg tablet (Plavix) 75 mg PO DAILY 09/09/21 09/18/21 peg 400-propylene glycol 0.4 %-0.3 1 drp ophthalmic (eye) DAILY PRN 09/09/21 09/18/21 % eye drops (Systane (propylene glycol)) rosuvastatin 20 mg tablet (Crestor) 20 mg PO DAILY 09/09/21 09/18/21 loratadine 10 mg tablet 10 mg PO DAILY PRN allergy 09/14/21 09/18/21 symptoms #90 tabs Previous Rx's Medication Instructions Recorded zoledronic acid 5 mg/100 mL in See Rx Instructions IV ONCE #100 mL 06/22/20 mannitol 5 %-water intravenous piggybck (Reclast) levothyroxine 88 mcg tablet 88 mcg PO DAILY #90 tabs 08/12/21 (Synthroid) loratadine 10 mg tablet 10 mg PO DAILY PRN allergy 09/14/21 symptoms #90 tabs Allergies Allergy/AdvReac Type Severity Reaction Status Date / Time ragweed pollen Allergy Intermediate stuffy, Verified 09/18/21 08:40 sneezing cephalexin Allergy Mild Skin Rash Verified 09/18/21 08:40 General Stated Complaint: Orthopedic JOYCE: 3 Review of Systems All systems reviewed & are unremarkable except as noted in HPI and below Constitutional Constitutional: Reports as per HPI, Denies chills and Denies fever(s) Eyes Eyes: Denies blurry vision ENT Ears, Nose, Mouth, and Throat: Denies dizziness, Denies sore throat and Denies throat swelling Cardiovascular Cardiovascular: Denies chest pain and Denies dyspnea Respiratory Respiratory: Denies cough and Denies dyspnea Gastrointestinal Gastrointestinal: Denies abdominal pain, Denies diarrhea and Denies vomiting Genitourinary Genitourinary: Denies hematuria and Denies dysuria Musculoskeletal Musculoskeletal: Denies back pain and Denies numbness Integumentary/Breasts Skin/Breast: Denies lesions and Denies rash Neurologic Neurologic: Denies dizziness, Denies localized weakness and Denies numbness Allergic/Immunologic Allergic/Immunologic: Denies throat swelling PFSH All Active Problems (Updated 09/18/21 @ 09:23 by Xiomy Judd DO) Left foot pain (Acute) Stroke (Chronic ~08/2021) right middle cerebellar peduncle and posterior right xavier infarct-->[facility] [place] Neuro Hypothyroidism (Chronic 2007) S/p I?131 ablation for Graves' disease Spence's syndrome (Chronic 08/1980) Congenital solitary kidney (Acute) Born with horseshoe kidney (Spence syndrome) Basilar artery stenosis/occlusion (Acute) Insomnia (Chronic) Melatonin Urinary frequency (Chronic) 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 Vitamin D deficiency (Chronic) Stroke (Chronic ~11/13/16) (R) MCA s/p TPA due to (R) ICA dissection Osteoporosis (Chronic ~2018) Severe T score -4.9 spine, -3.6 hip Medical History (Updated 09/18/21 @ 09:23 by Xiomy Judd DO) Carotid artery dissection Depression Femoral artery occlusion, right (~10/2017) Hypertension Irritable bowel syndrome Surgical History (Updated 09/09/21 @ 14:26 by Sue Crum NP) H/O fasciotomy (~10/29/17) RLE History of common carotid artery stent placement History of endarterectomy (~10/2017) R ileofemoral S/P arthroscopy of left shoulder (~2001) Family History Mother Hypothyroid Lupus Breast cancer Cervical cancer Lung cancer Father ALS (amyotrophic lateral sclerosis) Substance abuse Grandmother Neoplasm breast Paternal Grandfather Substance abuse Maternal Grandfather Heart disease Other Thyroid cancer Social History Smoking/Tobacco Use Status: Former Tobacco Use Quit Date: 11/10/16 Tobacco: How many years used: 24 Smoking risk assessment performed?: Yes Alcohol Intake: current Alcohol Intake frequency: a few times a week Alcohol type: beer Drug use: Never Substance use type: does not use Adopted: No Caregiver/Support person: No Foster care: No Household members: none Housing: apartment Do you need help understanding health information?: Rarely 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, [employer] Sexually active: Yes Do you think of yourself as: straight/heterosexual Current gender identity: female What type of physical activity do you participate in: walking Frequency: 1-2 times per week Seatbelt use: always Drive intox or ride w/intox straight truck 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 Exam Const General: cooperative, healthy appearing and no acute distress HENMT Head: normal to inspection Mouth: oral mucosae normal Eyes General: appearance normal, both eyes and all related structures Neck Neck: normal visual inspection Resp Effort & Inspection: normal respiratory effort and able to speak in complete sentences Cardio Rate: regular rate Skin General skin exam: no rashes or lesions noted Neuro General: patient alert, patient awake and patient oriented x3 Motor: muscle tone normal throughout Extrem General: normal to inspection and full ROM Ankle/foot/toe images: 1. Tenderness to palpation to base of second and third out. is no edema, erythema, ecchymosis, rash, lesions or deformity. Left DP and PT pulses intact. Ankle normal to inspection and palpation without pain with range of motion. No left fifth metatarsal tenderness. Left great toe appears normal to inspection without erythema, edema or tenderness or pain with range of motion. Psych Appearance: grossly normal Affect: normal affect
[2021-09-18 08:37] VITALS: BP 160/97; PULSE 58; RESP 16; TEMP 36.6; O2SAT 100
--- NOTE | 2021-09-18 09:15 | DI.VRAD_ITS ---
PROCEDURE INFORMATION: Exam: XR Left Foot Exam date and time: 09/18/2021 8:54 AM Age: 41 years old Clinical indication: Other: Left 2nd/3rd toe pain, R/O FX TECHNIQUE: Imaging protocol: Radiologic exam of the Left foot. Views: 3 or more views. COMPARISON: No relevant prior studies available. FINDINGS: Bones/joints: Normal. No fracture or dislocation. No arthropathic change. Soft tissues: Normal. IMPRESSION: No acute findings. Dictated and Authenticated by: Nakul Curtis MD. Ordering:BRENDA Stauffer MD
== END 2021-09-18 09:31 | disposition home or self-care (01) ==
PROVIDERS: Emergency Provider Physician Assistant; PCP Nurse Practitioner Adult Health
DX: M79.672 Pain in left foot (principal); I10 Essential (primary) hypertension; Z87.891 Personal history of nicotine dependence
CPT/HCPCS: 99283; 73630; 99282

== ENCOUNTER 2021-10-03 09:10 | Emergency (ER) | payer MEDICAID, SELFPAY ==
[2021-10-03] VITALS (43 sets, daily range): BP systolic 117–158; BP diastolic 81–112; PULSE 54–67; RESP 18; TEMP 36.4–36.6; O2SAT 80–100
--- NOTE | 2021-10-03 09:15 | DI.RAD_ITS ---
Exam(s) XR HAND RT COMPLETE EXAM: XR HAND RT COMPLETE CLINICAL HISTORY: fall/pain. TECHNIQUE: 2D digital imaging was performed. COMPARISON: No exams were available for comparison FINDINGS: 3 views There is soft tissue swelling dorsally. There is a fracture at the level of the neck of the 3rd metacarpal. Mild volar angulation noted at t he fracture site. No radiopaque foreign body. No osseous lesions. No other acute fractures identif ied. IMPRESSION: Fracture at the neck of the 3rd metacarpal. DATA REPOSITORY: RADIATION DOSE DELIVERED:
--- NOTE | 2021-10-03 09:15 | RT.EKG_ITS ---
APPROVED REPORT Exam: Resting ECG Reason for Exam: dizzy Patient Location: E HR:60 bpm ECG Measurements Heart Rate 60 AXIS OK 118 P 49 QRSd 90 QRS 61 QT 412 T 22 QTc 410 Conclusion Sinus rhythm...normal P axis, V-rate 60- 99 Probable left ventricular hypertrophy...(RaVL+SV3)xQRSd >300 no WPW, QTc 410, no brugada, no STEMI, non-diagnostic EKG I have reviewed and interpreted ECG and agree with software generated interpretation.
--- NOTE | 2021-10-03 09:42 | W.ED.GENAD ---
Discharge Plan Disposition Patient Disposition: HOME Condition: Improving Discharge Details Clinical Impression: Closed fracture of 3rd metacarpal, Dizziness Primary Care Provider: Sue Crum ED Provider: Efrain Eng Home Meds and New Rx's Prescriptions: Continued zoledronic [id number]-xjkuxabs-xwksv [Reclast] 5 mg/100 mL piggyback See Rx Instructions IV ONCE Qty: 100 0RF Rx Instructions: 5mg IV once; administer over at least 15 mins clopidogrel [Plavix] 75 mg tablet 75 mg PO DAILY rosuvastatin [Crestor] 20 mg tablet 20 mg PO DAILY Systane (propylene glycol) 0.4-0.3 % drops 1 drp ophthalmic (eye) DAILY PRN aspirin [Aspir-81] 81 MG tablet,delayed release (DR/EC) 81 mg PO DAILY levothyroxine [Synthroid] 88 mcg tablet 88 mcg PO DAILY Qty: 90 2RF loratadine 10 mg tablet 10 mg PO DAILY PRN (Reason: allergy symptoms) Qty: 90 0RF Discharge Instructions Instructions: Hand Fracture (ED), Dizziness (ED) Additional Instructions: X-ray of your hand reveals a third metacarpal fracture it has been splinted appropriately, wear splint and do not remove until reevaluation with orthopedics, orthopedic referral provided, please contact their office tomorrow to discuss outpatient evaluation. Work-up for your dizziness is unremarkable, I was able to speak with Dr. Street from [facility], neurology, who had no additional recommendations. MRI at this time was discussed but declined as you are now asymptomatic. Please watch for new or worsening symptoms and return to the ER for any concerns. Otherwise I would like you to contact your primary care provider to discuss your ER visit and need for outpatient reevaluation as well as reach out to your neurology team Discharge Data Discharge Date/Time-TO BE ENTERED AT DEPARTURE: 10/03/21 14:56 Medical Decision Making This is a 41-year-old female with a complicated past medical history that includes Spence syndrome, dissection of right carotid artery, CVA that has resulted in mild right-sided upper extremity and facial deficits, initially presenting to the ER for evaluation of right hand injury that occurred yesterday. She is right-hand dominant, states that she was dancing, had a mechanical fall, injuring her hand subsequently on the way to the ER she states that she developed some dizziness, not described as the room spinning, she states that she does get this intermittently especially since her recent discharge from [facility] but does seem to be slightly more severe. It only lasted for a matter of a few moments and has resolved completely. Patient denies any acute neurologic deficits currently. I was able to review the discharge summary last month from [facility], patient did not fact have right-sided facial deficits. Given the risk vs benefit, they elected aggressive medical management and hydration as opposed to stent placement. Plan is to obtain a cardiac work-up, as well as a CTA of her brain and neck, x-ray of the right hand. Laboratory values today do not reveal any obvious emergent process. CTA of brain and neck did not reveal any obvious emergent process. Patient remains at her neurologic baseline. X-ray of right hand reveals a third metacarpal fracture. I was able to speak with Dr. Street, neurology at [facility] who felt as though the work-up here was appropriate, had no further recommendations, and felt the patient could follow-up continuing her current medications as scheduled. I did receive a call from our radiologist regarding the CTA of her brain and neck, given her recent CVA, dissection, etc., he did feel as though MRI would be reasonable for further evaluation of her symptoms. I did relay this conversation to the patient. At this time she feels as though she is at baseline, symptoms resolved spontaneously, she feels as though my anxiety got the best of me, and declines MRI at this time. I was able to discuss the case with Dr. Rouse, recommends an intrinsic plus splint at least at the PIP joint incorporating the second through fourth digits. He will be happy to follow the patient in his clinic. I did place the patient on the orthopedic list. Patient was splinted appropriately. Standard discharge and return precautions were provided. Patient understands, is agreeable to this plan, and has no additional questions or concerns upon discharge. This documentation was generated using My[employer]ube[employer] system, please disregard any oddities of phrase or misspellings. Medical Records Medical records reviewed: Yes I reviewed the patient's medical records. Imaging Data Radiologic Study: Attestation: I personally reviewed and interpreted this imaging study as follows: Imaging: X-Ray Radiologist's impression: Exam(s) XR HAND RT COMPLETE EXAM: XR HAND RT COMPLETE CLINICAL HISTORY: fall/pain. TECHNIQUE: 2D digital imaging was performed. COMPARISON: No exams were available for comparison FINDINGS: 3 views There is soft tissue swelling dorsally. There is a fracture at the level of the neck of the 3rd metacarpal. Mild volar angulation noted at the fracture site. No radiopaque foreign body. No osseous lesions. No other acute fractures identified. IMPRESSION: Fracture at the neck of the 3rd metacarpal. Radiologic Study #2: Attestation: I personally reviewed and interpreted this imaging study as follows: Imaging: CT Scan Radiologist's impression: Exam(s) CT BRAIN NECK CTA EXAM: CT BRAIN NECK CTA CLINICAL HISTORY: dizzy, hx of dissection and stenosis. TECHNIQUE: Imaging Protocol: Axial CT angiography was performed with multi-slice acquisition and multi-planar and/or 3D reconstructions. CONTRAST MATERIAL: Intravenous: Omnipaque 350 Contrast volume:85 mL COMPARISON: CT CTA BRAIN AND NECK from 11/16/[address] HEAD WO from 08/13/2021 MR MR BRAIN WO from 08/24/2021 FINDINGS: CTA Neck W: Aortic arch anatomy: There is an aberrant right subclavian artery noted, this coming off as the last vessel off the aortic arch and achieving the right-side by crossing between the posterior addison of the esophagus and trachea and the thoracic vertebral body. There is no aneurysm at the origin of this vessel off the arch. Anterior circulation: The given the presence of an aberrant right subclavian artery, this results in the right common carotid artery originating off of the aortic arch instead of off the brachiocephalic trunk. There is no evidence of significant stenosis at the origin of either common carotid artery off of the aortic arch. At the level the carotid bifurcations there is some mild calcified plaque on the lateral aspect of the right bulb, without significant stenosis at this level nor in the proximal right internal carotid artery in the neck. In the upper neck the right internal carotid artery is tortuous and exhibits fusiform dilatation, expanding from luminal diameter of 4 millimeters to luminal diameter of 8 millimeters just before entering the skull base-right carotid canal. The previously present dissection flap in the right internal carotid artery in the upper neck is not seen on the present study. Flow is demonstrated within the right internal carotid artery within the skull base. There is more prominent calcified plaque at the level of the left carotid bifurcation and extending into the proximal left ICA but without more than 20 percent stenosis at this level. Above this level the left ICA in the upper neck is tortuous but not stenotic. Posterior circulation: Both vertebral arteries originate off of the subclavian arteries. The right vertebral artery originates off the right subclavian artery to the right of the midline and without significant stenosis at this level. Both vertebral arteries ascend with normal and equal luminal diameters in the foramen transverse area and with no evidence of intraluminal thrombus in the appearance of the vertebral arteries at the skull base is similar to 2017, with these vessels being thin and resulting in formation of a thin basilar artery, similar to previous. CTA Brain W: Anterior circulation: Both internal carotid arteries are patent in the skull base-carotid canals and cavernous sinuses. Supraclinoid aspects are patent and unchanged from 2017. Both A1 segments are patent, unchanged, with the left being dominant. Both anterior cerebral arteries are patent. There is no evidence of aneurysm at the level of the anterior communicating artery. Both middle cerebral arteries are patent. No new stenosis or occlusion. No aneurysms. Posterior circulation: The thin basilar artery is formed by the vertebral arteries at the skull base. It is again noted to ascend with thin luminal diameter. Distally gives off superior cerebellar arteries. The posterior cerebral artery on the left side is predominantly supplied by posterior communicating artery on the left side of the yflgee-kc-Xzuijk, similar to previous. The right posterior cerebral artery is also partially supplied by a posterior communicating artery on the right side of the qzgnei-rd-Svqkcv. CT BRAIN: There is no evidence of intracranial hemorrhage, mass effect, or shift of midline structures. There are no extra-axial fluid collections. Ventricles are not enlarged or shifted. There are no ring enhancing lesions in the brain and no abnormal meningeal enhancement. Ex vacuo dilatation of the anterior horn of the right lateral ventricles again noted with an adjacent lacunar infarct in the right caudate nucleus again noted. Chronic ischemic changes again noted in the right cerebellar hemisphere. IMPRESSION: 1. 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 However, previously present dissection at this level (seen in 2017) is no longer evident at this time. 2. Left side remains unremarkable at the skull base. 3. There is some mild plaque bilaterally at the carotid bifurcations but less than 20 percent stenosis bilaterally. 4. Aberrant right subclavian artery again noted. 5. Intracranial arteries are patent. Thin basilar artery again noted, similar to previous. Posterior communicating arteries are noted on both sides of the yerwik-ce-Fgfrxj. If clinically indicated follow-up MRI/MRA can be performed. Lab Data Lab results reviewed: Yes I reviewed the patient's lab results. Labs: Laboratory Tests Range/Units 10/03/21 10/03/21 10/03/21 10:22 10:22 10:55 WBC (4.4-10.8) 10^3/uL 7.71 RBC (3.93-5.22) 10^6/uL 4.19 Hgb (11.2-15.7) g/dL 14.7 Hct (36.0-46.0) % 44.1 MCV (80-95) fL 105 H MCH (27.0-33.0) pg 35.1 H MCHC (32.0-36.0) % 33.3 RDW (11.7-14.6) % 11.1 L Plt Count (130-400) 10^3/uL MPV (8.0-11.0) fL Immature Gran % 0.4 Neutrophils % 69.4 Lymphocytes % 19.8 Monocytes % 8.7 Eosinophils % 1.2 Basophils % 0.5 Nucleated RBC % (0.0-0.3) % 0.0 Absolute Neutrophils (1.2-6.7) 10^3/uL 5.35 Absolute Lymphocytes (1.2-3.4) 10^3/uL 1.53 Absolute Monocytes (0.1-0.8) 10^3/uL 0.67 Absolute Eosinophils (0.0-0.7) 10^3/uL 0.09 Absolute Basophils (0.0-0.2) 10^3/uL 0.04 RBC Morphology See Below Macrocytosis 1+ Sodium (136-145) mmol/L 142 Potassium (3.5-5.1) mmol/L 5.0 Chloride (98-107) mmol/L 109 H Carbon Dioxide (21.0-32.0) mmol/L 27.3 Anion Gap (3-11) mmol/L 5.7 BUN (7-18) mg/dL 15 Creatinine (0.55-1.02) mg/dL 1.0 Estimated GFR/1.73 m2 (mL/min/1.73m2) >= 60.00 Glucose (74-106) mg/dL 96 Calcium (8.5-10.1) mg/dL 9.1 Magnesium (1.8-2.4) mg/dL 2.4 Total Bilirubin (0.2-1.0) mg/dL 0.7 AST (15-37) U/L 25 ALT (14-59) U/L 32 Alkaline Phosphatase (46-116) U/L 59 Troponin I (<or=60) ng/L < 50 Total Protein (6.4-8.2) g/dL 7.5 Albumin (3.4-5.0) g/dL 4.0 TSH (0.36-3.74) uIU/mL 0.68 Urine Color (Yellow) Yellow Urine Clarity (Clear) Clear Urine pH (5-8) 7.0 Ur Specific Pettus (1.005-1.025) 1.025 Urine Protein (Negative) mg/dL 30 H Urine Ketones (Negative) mg/dL Negative Urine Blood (Negative) Negative Urine Nitrite (Negative) Negative Urine Bilirubin (Negative) Negative Urine Urobilinogen (Up TO 0.2) EU/dL 0.2 Ur Leukocyte Esterase (Negative) Negative Urine RBC (0-2) HPF Negative Urine WBC (0-5) HPF Negative Ur Epithelial Cells (Negative) HPF Rare Urine Crystals (Negative) HPF Negative Urine Bacteria (Negative) HPF Negative Urine Casts (Negative) LPF 3-5 Hyaline Urine Mucus (Negative) Trace Ur Culture Indicated? No Urine Glucose (Negative) mg/dL Negative ECG Data Attestation: I personally reviewed and interpreted this ECG (s) as follows: Interpretation: Sinus rhythm, ventricular rate of 60, no WPW, no STEMI HPI General Mode of arrival: ambulatory. Date/Time Provider Initiated Documentation: 10/03/21 09:10. Limitations to Documentation: no limitations. Information obtained by: patient. 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 She states that she was recently transferred to [facility] and subsequently discharged on 08-28, opted for aggressive medical management but no stent placement. She states that since her discharge she has had occasional ataxia for which she is going to physical therapy, mild right upper extremity weakness as well as mild right-sided facial weakness. She feels as though all of these are at her new baseline. She states that yesterday she was dancing, tripped with a mechanical fall injuring her right hand, she is right-hand dominant. Reports the pain is moderate but denies any numbness, tingling, weakness or distracting injuries. Pain is worse with movement. She has not taken any wums-ypi-ctnrgzl medication for her symptoms. She also reports that while coming to the ER she had a less than 5-minute episode of what she describes as feeling lightheaded and/or dizzy, off balance but not like the room was spinning. During this time she did become nauseous but had no vomiting. Symptoms resolved spontaneously prior to arrival and at this time her only complaint is that of right hand pain. Related Data Home Medications Medication Instructions Recorded Confirmed aspirin 81 mg tablet,delayed 81 mg PO DAILY 06/12/17 10/03/21 release (Aspir-) zoledronic acid 5 mg/100 mL in See Rx Instructions IV ONCE #100 mL 06/22/20 10/03/21 mannitol 5 %-water intravenous piggybck (Reclast) levothyroxine 88 mcg tablet 88 mcg PO DAILY #90 tabs 08/12/21 10/03/21 (Synthroid) clopidogrel 75 mg tablet (Plavix) 75 mg PO DAILY 09/09/21 10/03/21 peg 400-propylene glycol 0.4 %-0.3 1 drp ophthalmic (eye) DAILY PRN 09/09/21 10/03/21 % eye drops (Systane (propylene glycol)) rosuvastatin 20 mg tablet (Crestor) 20 mg PO DAILY 09/09/21 10/03/21 loratadine 10 mg tablet 10 mg PO DAILY PRN allergy 09/14/21 10/03/21 symptoms #90 tabs Previous Rx's Medication Instructions Recorded zoledronic acid 5 mg/100 mL in See Rx Instructions IV ONCE #100 mL 06/22/20 mannitol 5 %-water intravenous piggybck (Reclast) levothyroxine 88 mcg tablet 88 mcg PO DAILY #90 tabs 08/12/21 (Synthroid) loratadine 10 mg tablet 10 mg PO DAILY PRN allergy 09/14/21 symptoms #90 tabs Allergies Allergy/AdvReac Type Severity Reaction Status Date / Time ragweed pollen Allergy Intermediate stuffy, Verified 10/03/21 09:23 sneezing cephalexin Allergy Mild Skin Rash Verified 10/03/21 09:23 General Stated Complaint: Dizzy/Sync JOYCE: 3 Review of Systems Constitutional Constitutional: Denies fever(s) and Denies headache(s) Eyes Eyes: Denies change in vision ENT Ears, Nose, Mouth, and Throat: Reports dizziness, Denies headache(s) and Denies neck pain Cardiovascular Cardiovascular: Denies chest pain and Denies dyspnea Respiratory Respiratory: Denies cough and Denies dyspnea Gastrointestinal Gastrointestinal: Denies abdominal pain, Reports nausea and Denies vomiting Musculoskeletal Musculoskeletal: Denies neck pain, Denies numbness and Denies tingling Integumentary/Breasts Skin/Breast: Denies rash Neurologic Neurologic: Reports dizziness, Denies headache(s), Denies numbness and Denies tingling Hematologic/Lymphatic Hematologic/Lymphatic: Reports easy bleeding and Reports easy bruising PFSH All Active Problems (Updated 10/03/21 @ 14:29 by CHRISTEN Song) Closed fracture of 3rd metacarpal (Acute) Dizziness (Acute) Elevated BUN (Acute) Left foot pain (Acute) Stroke (Chronic ~08/2021) right middle cerebellar peduncle and posterior right xavier infarct-->[facility] Hypothyroidism (Chronic 2007) S/p I?131 ablation for Graves' disease 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 Vitamin D deficiency (Chronic) Stroke (Chronic ~11/13/16) (R) MCA s/p TPA due to (R) ICA dissection Osteoporosis (Chronic ~2018) Severe T score -4.9 spine, -3.6 hip Medical History Carotid artery dissection Depression Femoral artery occlusion, right (~10/2017) Hypertension Irritable bowel syndrome Surgical History H/O fasciotomy (~10/29/17) RLE History of common carotid artery stent placement History of endarterectomy (~10/2017) R ileofemoral S/P arthroscopy of left shoulder (~2001) Family History Mother Hypothyroid Lupus Breast cancer Cervical cancer Lung cancer Father ALS (amyotrophic lateral sclerosis) Substance abuse Grandmother Neoplasm breast Paternal Grandfather Substance abuse Maternal Grandfather Heart disease Other Thyroid cancer Social History Smoking/Tobacco Use Status: Former Tobacco Use Quit Date: 11/10/16 Tobacco: How many years used: 24 Smoking risk assessment performed?: Yes Alcohol Intake: current Alcohol Intake frequency: a few times a week Alcohol type: beer Drug use: Never Substance use type: does not use Adopted: No Caregiver/Support person: No Foster care: No Household members: none Housing: apartment Do you need help understanding health information?: Rarely 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, [employer] Sexually active: Yes Do you think of yourself as: straight/heterosexual Current gender identity: female What type of physical activity do you participate in: walking Frequency: 1-2 times per week Seatbelt use: always Drive intox or ride w/intox trolley coach 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 Exam Const General: cooperative, healthy appearing, comfortable and no acute distress Orientation: alert, awake and oriented x3 HENMT Head: normal to inspection, normocephalic and atraumatic Face and sinus: other (R sided weakness including the forehead, baseline per patient) Mouth: moist mucous membranes Throat: posterior oropharynx normal Eyes General: appearance normal, both eyes and all related structures Conjunctivae: conjunctivae normal Neck Neck: normal visual inspection, full ROM, trachea midline, supple and nontender Resp Effort & Inspection: normal respiratory effort and able to speak in complete sentences Auscultation: clear to auscultation bilaterally Cardio Rate: regular rate Rhythm: regular rhythm GI Palpation: soft and nontender Back/Spine/Pelvis Back: No back tenderness Skin General skin exam: no rashes or lesions noted Neuro General: patient alert, patient awake, patient oriented x3 and moves all extremities Cognition: normal cognition Speech: abnormal speech slurred (Baseline per patient) Gait: normal gait Motor: no pronator drift, no movement abnormalities noted and no fasciculations Sensory Exam: no sensory deficits noted Other: Subtle weakness of right upper extremity when compared to left, 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 Extrem General: capillary refill normal Other: Diffuse mid hand swelling, ecchymosis, tenderness, worse on the dorsal aspect. Normal capillary refill and radial pulse. Wrist unremarkable. Skin is intact. Psych Appearance: grossly normal Mental Status: mental status grossly normal Course Vital Signs Vital signs: Vital Signs Temperature 36.4 C L 10/03/21 09:18 Pulse 65 10/03/21 09:18 Blood Pressure 158/112 H 10/03/21 09:18 Pulse Oximetry 100 10/03/21 09:18 Temperature 36.4 C L 10/03/21 09:18 Temperature Source Temporal Artery Scan 10/03/21 09:18 Pulse 65 10/03/21 09:18 Blood Pressure 158/112 H 10/03/21 09:18 Blood Pressure Position Sitting 10/03/21 09:18 Pulse Oximetry 100 10/03/21 09:18 Oxygen Delivery Method Room Air 10/03/21 09:18 Oxygen Flow Rate 0 10/03/21 09:18 Procedures Orthopedic Splinting/Casting Injury #1: Side: right Upper Extremity Injury Location: hand Upper Extremity Immobilizer: volar splint (Intrinsic plus)
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
[2021-10-03 10:30] LABS: Abs Immature Grans 0.03 10^3/uL (0.0-0.06); Absolute Basophil Count 0.04 10^3/uL (0.0-0.2); Absolute Eosinophil Count 0.09 10^3/uL (0.0-0.7); Absolute Lymphocyte Count 1.53 10^3/uL (1.2-3.4); Absolute Monocyte Count 0.67 10^3/uL (0.1-0.8); Absolute Neutrophil Count 5.35 10^3/uL (1.2-6.7); Basophils % 0.5; Eosinophils % 1.2; HCT 44.1 % (36.0-46.0); HGB 14.7 g/dL (11.2-15.7); Immature Grans % 0.4; Lymphocytes % 19.8; MCH 35.1 pg (27.0-33.0); MCHC 33.3 % (32.0-36.0); MCV 105 fL (80-95); Monocytes % 8.7; Neutrophils % 69.4; RBC 4.19 10^6/uL (3.93-5.22); RDW 11.1 % (11.7-14.6); WBC 7.71 10^3/uL (4.4-10.8)
[2021-10-03 10:42] LABS: Diff Comment Diff Reviewed; Macrocytosis 1+
[2021-10-03 10:57] LABS: ALT 32 U/L (14-59); AST 25 U/L (15-37); Alkaline Phosphatase 59 U/L (46-116); Anion Gap 5.7 mmol/L (3-11); BUN 15 mg/dL (7-18); Bilirubin, Total 0.7 mg/dL (0.2-1.0); CO2 27.3 mmol/L (21.0-32.0); Calcium 9.1 mg/dL (8.5-10.1); Chloride 109 mmol/L (98-107); Glucose 96 mg/dL (74-106); Magnesium 2.4 mg/dL (1.8-2.4); Sodium 142 mmol/L (136-145); TSH 0.68 uIU/mL (0.36-3.74); Total Protein 7.5 g/dL (6.4-8.2); Troponin I < 50 ng/L (<or=60)
--- NOTE | 2021-10-03 11:40 | NUR.NOTE ---
Nursing Note: Delay in obtaining CTA - pt with difficult venous access, anesthesia currently at bedside attempting.
[2021-10-03 12:02] LABS: Bilirubin Negative (Negative); Blood Negative (Negative); Clarity Clear (Clear); Glucose Negative (Negative); Ketones Negative (Negative); Leukocyte Esterase Negative (Negative); Nitrite Negative (Negative); Specific Gravity 1.025 (1.005-1.025); Urobilinogen 0.2 EU/dL (Up TO 0.2)
[2021-10-03 12:08] LABS: Bacteria Negative HPF (Negative); C & S Indicated? No; Casts 3-5 Hyaline LPF (Negative); Crystals Negative HPF (Negative); Epithelial Cells Rare HPF (Negative); Mucus Trace (Negative); RBC Negative HPF (0-2); WBC Negative HPF (0-5)
--- NOTE | 2021-10-03 12:16 | PDOC.ERCMPRO ---
- If Service Date Differs Date of service: 10/03/21 Time of Service: 12:16 Care Management Progress Note SBIRT screen: Brief Intervention (audit 8). Pt reports she quit both nicotine and alcohol a month ago after having a stroke. No other mental health or substance use symptoms reported.
[2021-10-03] MEDS: Omnipaque 350 MG/ML 100 ML BTL IV (12:40)
== END 2021-10-03 14:56 | disposition home or self-care (01) ==
PROVIDERS: Emergency Provider Physician Assistant; PCP Nurse Practitioner Adult Health
DX: R42 Dizziness and giddiness (principal); S62.302A Unspecified fracture of third metacarpal bone, right hand, initial encounter for closed fracture; I10 Essential (primary) hypertension; F32.A Depression, unspecified; Z87.891 Personal history of nicotine dependence; Z86.73 Personal history of transient ischemic attack (TIA), and cerebral infarction without residual deficits; W01.10XA Fall on same level from slipping, tripping and stumbling with subsequent striking against unspecified object, initial encounter; Y93.41 Activity, dancing
CPT/HCPCS: 29125; 36415; 70496; 70498; 80053; 81025; 93005; 99285; 73130; 81003; 81015; 83735; 84443; 84484; 85025; 93010; J3490

== ENCOUNTER 2021-10-10 15:12 | Outpatient (CLI) | payer MEDICAID, SELFPAY ==
--- NOTE | 2021-10-10 15:00 | DI.RAD_ITS ---
Exam(s) XR HAND RT COMPLETE EXAM: XR HAND RT COMPLETE CLINICAL HISTORY: right 3rd metacarpal fracture TECHNIQUE: COMPARISON: CR XR HAND RT COMPLETE from 10/03/2021 FINDINGS: Three views were obtained. Previous described fracture of the head of the 3rd metacarpal is again no moriah, no gross interval change in alignment of fracture fragments comparison with examination of October 03. IMPRESSION: RADIATION DOSE DELIVERED: Total DLP
== END 2021-10-10 15:13 | disposition home or self-care (01) ==
LOC: DIORS 15:13
PROVIDERS: PCP Nurse Practitioner Adult Health; Referring Provider Nurse Practitioner Adult Health; Visit Provider Physician Assistant
DX: S62.302D Unspecified fracture of third metacarpal bone, right hand, subsequent encounter for fracture with routine healing (principal); X58.XXXD Exposure to other specified factors, subsequent encounter
CPT/HCPCS: 73130

== ENCOUNTER 2021-10-31 03:53 | Outpatient (CLI) | payer MEDICAID, SELFPAY ==
[2021-10-31 11:58] LABS: Anion Gap 6.6 mmol/L (3-11); BUN 15 mg/dL (7-18); CO2 30.4 mmol/L (21.0-32.0); Calcium 9.1 mg/dL (8.5-10.1); Chloride 106 mmol/L (98-107); Glucose 115 mg/dL (74-106); Potassium 4.2 mmol/L (3.5-5.1); Sodium 143 mmol/L (136-145)
== END 2021-10-31 03:54 | disposition home or self-care (01) ==
LOC: LBO 03:53
PROVIDERS: PCP Nurse Practitioner Adult Health; Visit Provider Nurse Practitioner Adult Health
DX: R79.9 Abnormal finding of blood chemistry, unspecified (principal)
CPT/HCPCS: 36415; 80048

== ENCOUNTER 2021-11-07 14:19 | Outpatient (CLI) | payer MEDICAID, SELFPAY ==
--- NOTE | 2021-11-07 13:00 | DI.RAD_ITS ---
Exam(s) XR HAND RT COMPLETE EXAM: XR HAND RT COMPLETE CLINICAL HISTORY: closed 3rd metacarpal fracutre. TECHNIQUE: 2D digital imaging was performed of the right hand. Three images were obtained. AP, late ral and oblique views were obtained. COMPARISON: CR XR HAND RT COMPLETE from 10/10/2021 FINDINGS: BONES: There has been no change in alignment of the fracture involving the 3rd metacarpal. Callus fo rmation has developed about the fracture consistent with interval healing. There is a new oblique gunjan cency through the base of the distal phalanx of the thumb suspicious for nondisplaced intra-articular fracture. No bony destructive lesion is seen. 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 JOINTS: No dislocation present. SOFT TISSUE: Normal. IMPRESSION: 1. Stable healing 3rd metacarpal fracture. 2. New nondisplaced intra-articular fracture through the base of the distal phalanx of the thumb. DATA REPOSITORY: RADIATION DOSE DELIVERED:
== END 2021-11-07 14:20 | disposition home or self-care (01) ==
LOC: DIORS 14:19
PROVIDERS: PCP Nurse Practitioner Adult Health; Referring Provider Nurse Practitioner Adult Health; Visit Provider Student in an Organized Health Care Education/Training Program
DX: S62.302D Unspecified fracture of third metacarpal bone, right hand, subsequent encounter for fracture with routine healing (principal); S62.524A Nondisplaced fracture of distal phalanx of right thumb, initial encounter for closed fracture; X58.XXXA Exposure to other specified factors, initial encounter
CPT/HCPCS: 73130

== ENCOUNTER 2021-12-08 11:56 | Outpatient (CLI) | payer MEDICAID, SELFPAY ==
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
== END 2021-12-08 11:57 | disposition home or self-care (01) ==
LOC: DIORS 11:56
PROVIDERS: PCP Nurse Practitioner Adult Health; Referring Provider Nurse Practitioner Adult Health; Visit Provider Physician Assistant
DX: S62.302D Unspecified fracture of third metacarpal bone, right hand, subsequent encounter for fracture with routine healing (principal); S62.521D Displaced fracture of distal phalanx of right thumb, subsequent encounter for fracture with routine healing; X58.XXXD Exposure to other specified factors, subsequent encounter
CPT/HCPCS: 73130

== ENCOUNTER 2021-12-10 20:07 | Emergency (ER) | payer MEDICAID, SELFPAY ==
[2021-12-10 20:12] VITALS: BP 171/114; PULSE 96; RESP 16; TEMP 37.4; O2SAT 99
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
[2021-12-10] MEDS: Acetaminophen 325 MG TAB 650 MG PO (21:13)
[2021-12-10 21:25] VITALS: BP 131/88; PULSE 98; RESP 16; TEMP 37.4; O2SAT 98
== END 2021-12-10 20:21 | disposition home or self-care (01) ==
PROVIDERS: Emergency Provider Registered Nurse Emergency; PCP Nurse Practitioner Adult Health
DX: S00.83XA Contusion of other part of head, initial encounter (principal); I10 Essential (primary) hypertension; Z86.73 Personal history of transient ischemic attack (TIA), and cerebral infarction without residual deficits; Z79.02 Long term (current) use of antithrombotics/antiplatelets; Z79.82 Long term (current) use of aspirin; Y04.2XXA Assault by strike against or bumped into by another person, initial encounter; Z87.891 Personal history of nicotine dependence; S05.11XA Contusion of eyeball and orbital tissues, right eye, initial encounter
CPT/HCPCS: 81025; 99284; 70450; 70486; 99282

== ENCOUNTER 2021-12-14 20:41 | Outpatient (REF) | payer MEDICAID, SELFPAY ==
--- NOTE | 2021-12-14 14:30 | PAPFT_PTH ---
PATIENT: Chelle Sherwood LOC: [facility] U#:[id number] AGE/SX: 41/F ROOM: RE12/14/[address]: Sue Crum APRN : 1980 BED: DIS: 12/14/2021 SPEC #: [id number] RECD: 12/15/21 13:13 STATUS: BINA JAMIL #: [id number] MICHAEL: 12/14/21 14:[address]: Sue Crum DEPT: [facility] Cytology RECD BY: Jenise Prieto Tissues: 1 - CX/ENDOCX FOR PAP SMEARS Procedures: PAP THIN PREP/UVM Screening HPV DNA PROBE Comments: [id number]
[2021-12-16 15:38] LABS: Chlamydia Result Negative (Negative); GC Result Negative (Negative)
== END 2021-12-14 20:42 | disposition home or self-care (01) ==
LOC: LBN 20:41
PROVIDERS: PCP Nurse Practitioner Adult Health; Visit Provider Nurse Practitioner Adult Health
DX: N89.8 Other specified noninflammatory disorders of vagina (principal); Z11.3 Encounter for screening for infections with a predominantly sexual mode of transmission
CPT/HCPCS: 87491; 87591; 88142; 87480; 87510; 87624; 87660

== ENCOUNTER 2022-03-24 00:33 | Outpatient (CLI) | payer MEDICAID, SELFPAY ==
--- NOTE | 2022-03-24 14:00 | DI.DEXA_ITS ---
Exam(s) XR DEXA BONE DENSITY W/WO CLIFF EXAM: XR DEXA BONE DENSITY W/WO CLIFF CLINICAL HISTORY: s/p 3 Reclast infusions; reassess T-scores,OSTEOPOROSIS, M80.80XA TECHNIQUE: COMPARISON: CR XR DEXA BONE DENSITY W/WO CLIFF from 04/16/2019 FINDINGS: Lateral Spine Image: Unremarkable. No compression deformities identified. Left hip: Total T-Score: -3.2. This compares to -3.6 on the prior examination. Total Z-Score: -3.0 T- and Z-scores: Findings are consistent with osteoporosis. Lumbar Spine: Total T-Score: -4.7. This compares to -4.9 on the prior examination. Total Z-Score: -4.4 T- and Z-scores: Findings are consistent with osteoporosis. IMPRESSION: Findings of osteoporosis in the lumbar spine and left hip.
--- NOTE | 2022-03-24 14:35 | DI.MAMMO_ITS ---
Exam(s) MAMMO SCREENING EXAM: MAMMO SCREENING CLINICAL HISTORY: screening,Z12.39 TECHNIQUE: Bilateral full field digital CC and MLO mammographic images were obtained with 3D tomosyn thesis and utilizing computer aided detection (CAD). COMPARISON: Available for comparison. FINDINGS: Masses/Architectural Distortion: None seen. Microcalcifications: No suspicious pleomorphic-type are seen. Skin Thickening/Nipple Retraction: None. IMPRESSION: 1. No significant interval change with no specific features of malignancy noted. 2. Unless there is more urgent need, screening mammography is recommended, as per [employer] guidelines. BI-RADS Category 1 - Negative Breast Density - Category B - Scattered areas of fibroglandular density Breast density category C or D implies that the patient has dense breast tissue. Dense breast tissue is very common and is not abnormal but dense breast tissue can make it harder to find cancer on a ma mmogram. Also, dense breast tissue may increase their breast cancer risk. This information about the result of the mammogram report was provided to the patient to raise their awareness. Use this report when you speak with the patient about their risks for breast cancer, which includes their family hist ory. At that time, you may recommend for more screening tests (Ultrasound or MRI) as they might be us eful based on their risk. A negative radiographic report should not delay biopsy if a dominant or clinically suspicious mass is present. Up to ten percent of cancers are not identified on mammography. A negative report may reinforce clinical impression. Adenosis and dense breasts may obscure an underlying neoplasm. False positive reports average 6 to 10%. Patient will receive a letter notifying them of these results.
== END 2022-03-24 00:53 ==
LOC: DI 00:37
PROVIDERS: PCP Nurse Practitioner Adult Health; Visit Provider Nurse Practitioner Adult Health
DX: Z12.31 Encounter for screening mammogram for malignant neoplasm of breast (principal); Z13.820 Encounter for screening for osteoporosis; M81.0 Age-related osteoporosis without current pathological fracture
CPT/HCPCS: 77063; 77067; 77080

== ENCOUNTER 2022-07-21 01:45 | Outpatient (CLI) | payer MEDICAID, SELFPAY ==
[2022-07-21 11:10] LABS: Anion Gap 9.2 mmol/L (3-11); BUN 21 mg/dL (7-18); CO2 29.8 mmol/L (21.0-32.0); Calcium 8.7 mg/dL (8.5-10.1); Calculated LDL 80 mg/dL (<100); Chloride 105 mmol/L (98-107); Cholesterol 160 mg/dL (<200); Estimated GFR 72.58 (mL/min/1.73m2); Glucose 98 mg/dL (74-106); HDL Cholesterol 69 mg/dL (40-60); Potassium 4.2 mmol/L (3.5-5.1); Sodium 144 mmol/L (136-145); TSH (W/Ref FT4) 1.04 uIU/mL (0.36-3.74); Triglyceride 57 mg/dL (<150)
[2022-07-21 11:23] LABS: Vitamin D 25 Total 32.8 ng/mL (30-100)
== END 2022-07-21 01:46 | disposition home or self-care (01) ==
LOC: LBO 01:49
PROVIDERS: PCP Nurse Practitioner Adult Health; Visit Provider Nurse Practitioner Adult Health
DX: I10 Essential (primary) hypertension (principal); E03.9 Hypothyroidism, unspecified; E55.9 Vitamin D deficiency, unspecified; I63.89 Other cerebral infarction; Q60.0 Renal agenesis, unilateral
CPT/HCPCS: 36415; 80048; 80061; 82306; 84443

== ENCOUNTER 2022-08-12 10:06 | Emergency (ER) | payer MEDICAID, SELFPAY ==
[2022-08-12 10:10] VITALS: BP 130/94; PULSE 80; RESP 16; TEMP 37.2; O2SAT 99
--- NOTE | 2022-08-12 10:25 | DI.RAD_ITS ---
Exam(s) XR LUMBAR SPINE COMPLETE EXAM: XR LUMBAR SPINE COMPLETE CLINICAL HISTORY: Lower back pain. TECHNIQUE: 2D digital imaging was performed of the lumbar spine. Five images were obtained. AP, la teral, right oblique, left oblique and L5-S1 spot views were obtained. COMPARISON: CR XR DEXA BONE DENSITY W/WO CLIFF from 04/16/2019 CR XR DEXA BONE DENSITY W/WO CLIFF from 03/24/2022 FINDINGS: BONES: No fracture or destructive lesion. Vertebral bodies are unremarkable. No facet hypertrophy ellyn ntified. The bones are osteopenic. DISKS: Intervertebral disc spaces are maintained. ALIGNMENT: Lumbar spinal alignment is within normal limits. No spondylolysis or spondylolisthesis. SOFT TISSUE: Normal. IMPRESSION: 1. No acute abnormality. 2. If there are radicular concerns an MRI may be obtained for further evaluation. 3. Osteopenia. If there is concern for an occult fracture, a CT scan may be obtained for further jared luation. DATA REPOSITORY: RADIATION DOSE DELIVERED:
--- NOTE | 2022-08-12 10:27 | W.ED.GENAD ---
Discharge Plan Disposition Patient Disposition: Home Discharge Details Clinical Impression: Low back strain, UTI (urinary tract infection) Primary Care Provider: Sue Crum ED Provider: Lillie Parikh Home Meds and New Rx's Prescriptions: New sulfamethoxazole-trimethoprim [Bactrim DS] 800-160 mg tablet 1 tab PO BID 5 Days Qty: 10 0RF Rx Instructions: Take 1 tablet by mouth twice daily x5 days No Action cholecalciferol (vitamin D3) 50 mcg (2,000 unit) capsule 50 mcg PO DAILY Qty: 90 3RF Rx Instructions: osteoporosis & vit D deficiency amlodipine 5 mg tablet 5 mg PO DAILY Qty: 90 3RF Rx Instructions: Blood pressure; goal <130/80 clopidogrel [Plavix] 75 mg tablet 75 mg PO DAILY rosuvastatin [Crestor] 20 mg tablet 20 mg PO DAILY zoledronic [id number] [Reclast] 5 mg/100 mL piggyback See Rx Instructions IV ONCE Qty: 100 0RF Rx Instructions: 5mg IV once; administer over at least 15 mins aspirin [Aspir-81] 81 MG tablet,delayed release (DR/EC) 81 mg PO DAILY loratadine 10 mg tablet See Rx Instructions .ROUTE .COMPLEX Qty: 90 3RF Dose Instruction: TAKE ONE TABLET BY MOUTH ONCE DAILY NEEDED FOR ALLERGY SYMPTOMS Rx Instructions: TAKE ONE TABLET BY MOUTH ONCE DAILY NEEDED FOR ALLERGY SYMPTOMS levothyroxine [Synthroid] 88 mcg tablet 88 mcg PO DAILY Qty: 90 3RF Rx Instructions: Thyroid replacement Discharge Instructions Instructions: Urinary Tract Infection in Women (ED), Low Back Strain (ED) Additional Instructions: Urine findings are concerning for possible urinary tract infection. X-rays are within normal limits. No acute abnormality. Please take the antibiotics twice daily for the next 5 days. Take the muscle relaxers as prescribed these may make you sleepy. Alternate ice and heat. Please take Tylenol with food every 4-6 hours as needed for pain and swelling. You may also get lidocaine patches which you can get [id number]. Follow up with primary care provider in 3-5 days. Return to ED sooner if any worsening or concerns. Increase oral fluids. Stand Alone Forms: Work Release Referrals: Sue Crum, [employer] [Primary Care Provider] - 1 week Medical Decision Making 42-year-old female presents to the ER with chief complaint of low back pain which began this morning after getting up out of bed. She reports hearing a pop and having increased pain. Denies any radiation numbness tingling weakness or problems urinating. Denies any saddle anesthesia. 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 She does take clopidogrel daily amlodipine levothyroxine lovastatin and loratadine. She did not take any medications prior to arrival. X-ray L-spine ordered, urinalysis lidocaine patch and Tylenol. Frontal diagnosis includes but not limited to lumbago, musculoskeletal strain, UTI X-ray within normal limits, urinalysis shows moderate leukocytes, 20-50 WBCs 5-10 RBCs, however there is squamous contamination is not sent for culture at this time. Due to patient's 1 kidney we will order antibiotics. On patient reevaluation she reports she is feeling somewhat better after the Tylenol and lidocaine patch. I did discuss her urine results with her she verbalizes understanding. Patient was given Bactrim here in the department and given 5 days of Bactrim DS twice daily due to her single kidney and possibility of UTI. This text was generated using [employer] dictation system, please disregard any oddities of phrase or misspellings. Imaging Data Radiologic Study: Radiologist's impression: FINDINGS: Bones/joints: There is no evidence of acute fracture.There is no evidence of malalignment or dislocation. Intervertebral disc spaces are maintained. Soft tissues: Unremarkable. IMPRESSION: 1. There is no evidence of acute fracture.There is no evidence of malalignment or dislocation. 2. Intervertebral disc spaces are maintained. A Thank you for allowing us to participate in the care of your patient. Dictated and Authenticated by: Ben Schaefer MD Lab Data Lab results reviewed: Yes I reviewed the patient's lab results. Labs: Laboratory Tests Range/Units 08/12/22 11:20 Urine Color (Yellow) Yellow Urine Clarity (Clear) Clear Urine pH (5-8) 6.5 Ur Specific [place] (1.005-1.025) 1.020 Urine Protein (Negative) mg/dL 30 H Urine Ketones (Negative) mg/dL Trace H Urine Blood (Negative) Trace-intact H Urine Nitrite (Negative) Negative Urine Bilirubin (Negative) Small H Urine Urobilinogen (Up to 0.2) mg/dL 0.2 Ur Leukocyte Esterase (Negative) Moderate H Urine RBC (0-2) HPF 5-10 H Urine WBC (0-5) HPF 20-50 H Ur Epithelial Cells (Negative) HPF Many Urine Crystals (Negative) HPF Negative Urine Bacteria (Negative) HPF Moderate Urine Casts (Negative) LPF Negative Urine Mucus (Negative) Trace Ur Culture Indicated? No/Sq. Contamination Urine Glucose (Negative) mg/dL Negative HPI General Mode of arrival: ambulatory. Date/Time Provider Initiated Documentation: 08/12/22 10:06. Limitations to Documentation: no limitations. Information obtained by: patient, RN notes reviewed and old records reviewed. HPI Narrative: 42-year-old female presents to the ER with chief complaint of low back pain which began this morning after getting up out of bed. She reports hearing a pop and having increased pain. Denies any radiation numbness tingling weakness or problems urinating. Denies any saddle anesthesia. 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 She does take clopidogrel daily amlodipine levothyroxine lovastatin and loratadine. She did not take any medications prior to arrival. Related Data Home Medications Medication Instructions Recorded Confirmed aspirin 81 mg tablet,delayed 81 mg PO DAILY 06/12/17 08/12/22 release (Aspir-) clopidogrel 75 mg tablet (Plavix) 75 mg PO DAILY 09/09/21 08/12/22 rosuvastatin 20 mg tablet (Crestor) 20 mg PO DAILY 09/09/21 08/12/22 zoledronic acid 5 mg/100 mL in See Rx Instructions IV ONCE #100 mL 12/14/21 08/12/22 mannitol 5 %-water intravenous piggybck (Reclast) amlodipine 5 mg tablet 5 mg PO DAILY #90 tabs 03/10/22 08/12/22 loratadine 10 mg tablet See Rx Instructions .Route 03/20/22 08/12/22 .COMPLEX #90 tabs levothyroxine 88 mcg tablet 88 mcg PO DAILY #90 tabs 05/18/22 08/12/22 (Synthroid) cholecalciferol (vitamin D3) 50 50 mcg PO DAILY #90 caps 08/03/22 08/12/22 mcg (2,000 unit) capsule sulfamethoxazole 800 1 tab PO BID uti 5 days #10 tabs 08/12/22 mg-trimethoprim 160 mg tablet (Bactrim DS) Previous Rx's Medication Instructions Recorded zoledronic acid 5 mg/100 mL in See Rx Instructions IV ONCE #100 mL 12/14/21 mannitol 5 %-water intravenous piggybck (Reclast) amlodipine 5 mg tablet 5 mg PO DAILY #90 tabs 03/10/22 loratadine 10 mg tablet See Rx Instructions .Route 03/20/22 .COMPLEX #90 tabs levothyroxine 88 mcg tablet 88 mcg PO DAILY #90 tabs 05/18/22 (Synthroid) cholecalciferol (vitamin D3) 50 50 mcg PO DAILY #90 caps 08/03/22 mcg (2,000 unit) capsule sulfamethoxazole 800 1 tab PO BID uti 5 days #10 tabs 08/12/22 mg-trimethoprim 160 mg tablet (Bactrim DS) Allergies Allergy/AdvReac Type Severity Reaction Status Date / Time ragweed pollen Allergy Intermediate stuffy, Verified 08/12/22 10:13 sneezing cephalexin Allergy Mild Skin Rash Verified 08/12/22 10:13 General Stated Complaint: Nk/Back Pain JOYCE: 4 Review of Systems All systems reviewed & are unremarkable except as noted in HPI and below Musculoskeletal Musculoskeletal: Reports as per HPI, Reports back pain, Denies numbness, Denies stiffness and Denies tingling Neurologic Neurologic: Denies numbness and Denies tingling PFSH All Active Problems (Updated 08/12/22 @ 12:07 by Lillie Parikh NP) Low back strain (Acute) UTI (urinary tract infection) (Acute) Otalgia of left ear (Acute) Tonsil asymmetry (Acute) Acute dysfunction of both eustachian tubes (Acute) Sensorineural hearing loss (SNHL) of both ears (Acute) Vitamin D deficiency (Acute) Essential hypertension (Acute) <130/80 Dr [place] Stroke (Chronic ~08/2021) right middle cerebellar peduncle and posterior right xavier infarct-->[facility] [place] Hypothyroidism (Chronic 2007) S/p I?131 ablation for Graves' disease 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) Stroke (~11/13/16) (R) MCA s/p TPA due to (R) ICA dissection Surgical History H/O fasciotomy (~10/29/17) RLE History of common carotid artery stent placement History of endarterectomy (~10/2017) R ileofemoral S/P arthroscopy of left shoulder (~2001) Family History Mother Hypothyroid Lupus Cervical cancer Lung cancer Thyroid cancer Father ALS (amyotrophic lateral sclerosis) Substance abuse Grandmother Neoplasm breast--PGM Paternal Grandfather Substance abuse Maternal Grandfather Heart disease Social History Smoking/Tobacco Use Status: Former Tobacco Use Quit Date: 11/10/16 Tobacco: How many years used: 24 Smoking risk assessment performed?: Yes Alcohol Intake: current Alcohol Intake frequency: a few times a week Alcohol type: beer Drug use: Never Substance use type: does not use Adopted: No Caregiver/Support person: No Foster care: No Household members: none Housing: apartment Number of Children: 0 Communication Needs: Corrective Lenses Education Level: high school Do you need help understanding health information?: Rarely current occupation: [employer] Pets and animals: Yes (1) Pets and animals: cat(s) Sexually active: Yes Do you think of yourself as: straight/heterosexual Current gender identity: female What is your relationship status?: How often do you talk on the phone with friends or family?: three or more times per week How often do you get together with friends or relatives?: three or more times per week How often do you attend bahai or christianity services?: decline to answer Do you belong to any clubs or organized social groups?: no Panel score (0-1 are the most socially isolated patients): 1 What type of physical activity do you participate in: walking Duration: 15-30 minutes/day Frequency: 5-6 times per week Seatbelt use: always Helmet use: Yes Drive intox or ride w/intox national dedicated truck 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 Exam Narrative Exam Narrative: Constitutional: Alert and oriented x3. Appears stated age. Normal body habitus. Head: Normocephalic, no trauma. Chest: RRR, Normal S1, S2, distal pulses intact. Resp: Lungs clear to auscultation bilaterally, no wheezes, rales, or rhonchi. Musculoskeletal: Stiff gait, 5/5 strength to all four extremities. No midline L-spine tenderness, crepitus or step-off with palpation. Skin: No suspicious rashes or lesions. Capillary refill less than 2 sec. Neurologic: Cranial nerves II-XII intact. Alert and oriented x 3. Motor: No deficits noted. Sensory: Intact bilaterally all 4 extremities. Reflexes: DTR's intact bilaterally.. Hematologic/Lymphatic: No ecchymosis, no lymphadenopathy. Course Vital Signs Vital signs: Vital Signs Temperature 37.2 C 08/12/22 10:10 Pulse 80 08/12/22 10:10 Respiratory Rate 16 08/12/22 10:10 Blood Pressure 130/94 H 08/12/22 10:10 Pulse Oximetry 99 08/12/22 10:10 Temperature 37.2 C 08/12/22 10:10 Temperature Source Skin 08/12/22 10:10 Pulse 80 08/12/22 10:10 Respiratory Rate 16 08/12/22 10:10 Respiratory Effort Normal, Non-Labored 08/12/22 10:15 Blood Pressure 130/94 H 08/12/22 10:10 Blood Pressure Position Sitting 08/12/22 10:10 Pulse Oximetry 99 08/12/22 10:10 Oxygen Delivery Method Room Air 08/12/22 10:10 Oxygen Flow Rate 0 08/12/22 10:10 Pain Level 10 08/12/22 10:10 PAWSS Have you Been Recently Intoxicated or Drunk Within the Last 30 days?: Yes Have you Ever Experienced Previous Episodes of Alcohol Withdrawal?: No Have you ever Experienced Withdrawal Seizures?: No Have you ever Experienced Delirium Tremens(DT)s?: No Have you ever undergone Alcohol Rehabilitation Treatment (i.e, inpt ot outpatient treatment programs)?: No Have you ever Experienced Blackouts?: No Have you ever Combined Alcohol with other Downers within the last 90 days?: No Have you ever Combined Alcohol with any other Substance of Abuse during the last 90 days?: No Positive Blood Alcohol level on Presentation? [PCS.BAL]: No Evidence of Increased Autonomic Activity (i.e. HR>120, tremor, sweating, agitation, nausea)?: No Result: 1
[2022-08-12] MEDS: Acetaminophen 500 MG TAB 1000 MG PO (10:46)
[2022-08-12] MEDS: Lidocaine 5% Patch 1 PATCH TP (10:47)
--- NOTE | 2022-08-12 11:17 | DI.VRAD_ITS ---
PROCEDURE INFORMATION: Exam: XR Lumbosacral Spine Exam date and time: 08/12/2022 11:03 AM Age: 42 years old Clinical indication: Other: Lower back pain TECHNIQUE: Imaging protocol: Radiologic exam of the lumbosacral spine. Views: 4 or 5 views. COMPARISON: No relevant prior studies available. FINDINGS: Bones/joints: There is no evidence of acute fracture.There is no evidence of malalignment or dislocation. Intervertebral disc spaces are maintained. Soft tissues: Unremarkable. IMPRESSION: 1. There is no evidence of acute fracture.There is no evidence of malalignment or dislocation. 2. Intervertebral disc spaces are maintained. A Dictated and Authenticated by: Ben Schaefer MD. Ordering:LILLI Moreira MD
[2022-08-12 11:45] LABS: Bilirubin Small (Negative); Blood Trace-intact (Negative); Clarity Clear (Clear); Glucose Negative (Negative); Ketones Trace mg/dL (Negative); Leukocyte Esterase Moderate (Negative); Nitrite Negative (Negative); Urobilinogen 0.2 mg/dL (Up to 0.2); pH 6.5 (5-8)
[2022-08-12 11:53] LABS: Bacteria Moderate HPF (Negative); C & S Indicated? No/Sq. Contamination; Casts Negative LPF (Negative); Crystals Negative HPF (Negative); Epithelial Cells Many HPF (Negative); Mucus Trace (Negative); WBC 20-50 HPF (0-5)
[2022-08-12] MEDS: Cyclobenzaprine 10 MG TAB, 3 TABS/BTL PO (12:33)
[2022-08-12] MEDS: Sulfameth/Trimeth DS, 2 TABS/BTL 1 TAB PO (12:34)
[2022-08-12] MEDS: Sulfameth/Trimeth DS TAB 1 TAB PO (12:34)
[2022-08-12 12:37] VITALS: BP 130/94; PULSE 80; RESP 16; TEMP 37.2; O2SAT 99
== END 2022-08-12 12:42 | disposition home or self-care (01) ==
PROVIDERS: Emergency Provider Registered Nurse Emergency; PCP Nurse Practitioner Adult Health
DX: N39.0 Urinary tract infection, site not specified (principal); S39.012A Strain of muscle, fascia and tendon of lower back, initial encounter; X58.XXXA Exposure to other specified factors, initial encounter
CPT/HCPCS: 81025; 99283; 72110; 81003; 81015; 99284

== ENCOUNTER 2022-09-18 01:54 | Outpatient (RCR) | payer MEDICAID, SELFPAY ==
[2022-09-18] MEDS: ZOLEDRONIC ACID/MANNITOL/WATER 5 MG/100 ML BTL 300 MG IVPB (08:50)
[2022-09-18] MEDS: Normal Saline Flush 10 ML SYR IVP (09:24)
== END 2022-10-09 23:59 | disposition home or self-care (01) ==
LOC: INF 01:54
PROVIDERS: PCP Nurse Practitioner Adult Health; Visit Provider Nurse Practitioner Family
DX: M81.0 Age-related osteoporosis without current pathological fracture (principal); Q96.9 Turner's syndrome, unspecified
CPT/HCPCS: 96365; J3489

== ENCOUNTER 2023-05-16 09:01 | Emergency (ER) | payer MEDICAID, SELFPAY ==
[2023-05-16 09:07] VITALS: BP 133/83; PULSE 67; RESP 16; TEMP 36.6
--- NOTE | 2023-05-16 09:25 | ED.GENADUL_ITS ---
Discharge Plan Disposition Patient Disposition: Home Condition: Stable Discharge Details Clinical Impression: Ganglion cyst of dorsum of right wrist Primary Care Provider: Sue Crum ED Provider: Jonas Panda Home Meds and New Rx's Prescriptions: Continued cholecalciferol (vitamin D3) 50 mcg (2,000 unit) capsule 50 mcg PO DAILY Qty: 90 3RF Rx Instructions: osteoporosis & vit D deficiency cyclobenzaprine 10 mg tablet 10 mg PO TID PRN (Reason: muscle spasm) Qty: 30 0RF diclofenac sodium 1 % gel 2 - 4 g topical QID PRN (Reason: pain) Qty: 100 0RF Rx Instructions: 2G for upper extremity joints; 4G for lower extremity joints zoledronic obmo-knomzmdu-ypqet [Reclast] 5 mg/100 mL piggyback See Rx Instructions IV ONCE Qty: 100 0RF Rx Instructions: 5mg IV once; administer over at least 15 mins aspirin [Aspir-81] 81 MG tablet,delayed release (DR/EC) 81 mg PO DAILY loratadine 10 mg tablet See Rx Instructions .ROUTE .COMPLEX Qty: 90 3RF Dose Instruction: TAKE ONE TABLET BY MOUTH ONCE DAILY NEEDED FOR ALLERGY SYMPTOMS Rx Instructions: TAKE ONE TABLET BY MOUTH ONCE DAILY NEEDED FOR ALLERGY SYMPTOMS levothyroxine [Synthroid] 88 mcg tablet 88 mcg PO DAILY Qty: 90 3RF Rx Instructions: Thyroid replacement rosuvastatin [Crestor] 20 mg tablet 20 mg PO DAILY Qty: 90 3RF clopidogrel 75 mg tablet See Rx Instructions .ROUTE .COMPLEX Qty: 90 3RF Dose Instruction: TAKE ONE TABLET BY MOUTH EVERY DAY. Rx Instructions: TAKE ONE TABLET BY MOUTH EVERY DAY. amlodipine 5 mg tablet 5 mg PO DAILY Qty: 90 3RF Rx Instructions: Blood pressure; goal <130/80 Discharge Instructions Additional Instructions: If this is starts causing him pain you can wear the wrist splint If is not improving in a week or 2 you can reach out to orthopedics for an evaluation or see your primary care provider If you feel more ill, have fevers or severe worsening pain return to the emergency department for reevaluation Referrals: Joe Rouse MD [ [facility] STAFF PHYSICIAN] - HPI General Mode of arrival: ambulatory . Date/Time Provider Initiated Documentation: 05/16/23 09:16 . Limitations to Documentation: no limitations . Information obtained by: patient . History of Present Illness 42 year old F presents to the emergency department with the chief complaint of Lump on right wrist, described as moderate, Patient started experiencing this day(s) (1) and it has been constant. No relieving factors improve symptom(s), No exacerbating factors reported . Patient notes no other symptoms.. Patient did receive the following treatments prior to arrival, none Related Data Home Medications Medication Instructions Recorded Confirmed aspirin 81 mg tablet,delayed 81 mg PO DAILY 06/12/17 08/23/22 release (Aspir-) zoledronic acid 5 mg/100 mL in See Rx Instructions IV ONCE #100 mL 12/14/21 08/23/22 mannitol 5 %-water intravenous piggybck (Reclast) loratadine 10 mg tablet See Rx Instructions .Route 03/20/22 08/23/22 .COMPLEX #90 tabs levothyroxine 88 mcg tablet 88 mcg PO DAILY #90 tabs 05/18/22 08/23/22 (Synthroid) cholecalciferol (vitamin D3) 50 50 mcg PO DAILY #90 caps 08/03/22 08/23/22 mcg (2,000 unit) capsule rosuvastatin 20 mg tablet (Crestor) 20 mg PO DAILY #90 tabs 08/16/22 08/23/22 cyclobenzaprine 10 mg tablet 10 mg PO TID PRN muscle spasm #30 08/23/22 08/23/22 tab-caps diclofenac sodium 1 % topical gel 2 - 4 g topical QID PRN pain #100 08/23/22 08/23/22 grams clopidogrel 75 mg tablet See Rx Instructions .Route 12/19/22 .COMPLEX #90 tabs amlodipine 5 mg tablet 5 mg PO DAILY #90 tabs 03/02/23 Previous Rx's Medication Instructions Recorded zoledronic acid 5 mg/100 mL in See Rx Instructions IV ONCE #100 mL 12/14/21 mannitol 5 %-water intravenous piggybck (Reclast) loratadine 10 mg tablet See Rx Instructions .Route 03/20/22 .COMPLEX #90 tabs levothyroxine 88 mcg tablet 88 mcg PO DAILY #90 tabs 05/18/22 (Synthroid) cholecalciferol (vitamin D3) 50 50 mcg PO DAILY #90 caps 08/03/22 mcg (2,000 unit) capsule rosuvastatin 20 mg tablet (Crestor) 20 mg PO DAILY #90 tabs 08/16/22 cyclobenzaprine 10 mg tablet 10 mg PO TID PRN muscle spasm #30 08/23/22 tab-caps diclofenac sodium 1 % topical gel 2 - 4 g topical QID PRN pain #100 08/23/22 grams clopidogrel 75 mg tablet See Rx Instructions .Route 12/19/22 .COMPLEX #90 tabs amlodipine 5 mg tablet 5 mg PO DAILY #90 tabs 03/02/23 Allergies Allergy/AdvReac Type Severity Reaction Status Date / Time ragweed pollen Allergy Intermediate stuffy, Verified 08/23/22 09:28 sneezing cephalexin Allergy Mild Skin Rash Verified 08/23/22 09:28 General Stated Complaint: Orthopedic JOYCE: 4 Review of Systems All systems reviewed & are unremarkable except as noted in HPI and below Constitutional Constitutional: Denies chills, Denies fever(s) and Denies weakness Cardiovascular Cardiovascular: Denies chest pain and Denies dyspnea Respiratory Respiratory: Denies cough and Denies dyspnea Gastrointestinal Gastrointestinal: Denies abdominal pain, Denies nausea and Denies vomiting Neurologic Neurologic: Denies weakness Exam Const General: no acute distress Orientation: alert [facility] Head: normal to inspection Ears: external ears normal General nose exam: external nose normal Mouth: moist mucous membranes Eyes General: appearance normal, both eyes and all related structures Neck Neck: normal visual inspection Resp Effort & Inspection: normal respiratory effort and able to speak in complete sentences Cardio Rate: regular rate Skin General skin exam: no rashes or lesions noted Neuro General: patient alert and patient oriented x3 Extrem General: normal to inspection, full ROM and capillary refill normal Psych Mental Status: mental status grossly normal Course Vital Signs Vital signs: Vital Signs Temperature 36.6 C 05/16/23 09:07 Pulse 67 05/16/23 09:07 Respiratory Rate 16 05/16/23 09:07 Blood Pressure 133/83 05/16/23 09:07 Temperature 36.6 C 05/16/23 09:07 Temperature Source Temporal Artery Scan 05/16/23 09:07 Pulse 67 05/16/23 09:07 Respiratory Rate 16 05/16/23 09:07 Respiratory Effort Normal, Non-Labored 05/16/23 09:09 Blood Pressure 133/83 05/16/23 09:07 Oxygen Delivery Method Room Air 05/16/23 09:07 Oxygen Flow Rate 0 05/16/23 09:07 Pain Level 0 05/16/23 09:07 Medical Decision Making 42-year-old female comes in after she noticed a lump on her right posterior wrist. Denies any pain or swelling or fevers. No rashes. She states she was washing dishes last night when she noticed the lump. She has a approximately 1- 1/2 cm round mobile nonfluctuant mass on her right posterior wrist on the radial surface. She has no tenderness, no erythema or warmth. She has full range of motion of her wrist and hand with intact sensation and pulses. Findings are consistent with a ganglion cyst, advised these usually resolve but if they are not improving in a week or 2 she can reach out to orthopedics for evaluation. Return precautions given Differential Diagnosis Differential Diagnosis: Ganglion cyst, cyst Quality:SDOH Health Related Social Needs: No Data to Display PFSH All Active Problems (Updated 05/16/23 @ 09:28 by Jonas Panda MD) Ganglion cyst of dorsum of right wrist (Acute) Otalgia of left ear (Acute) Tonsil asymmetry (Acute) Acute dysfunction of both eustachian tubes (Acute) Sensorineural hearing loss (SNHL) of both ears (Acute) Vitamin D deficiency (Acute) Essential hypertension (Acute) <130/80 Dr [place] Stroke (Chronic ~08/2021) right middle cerebellar peduncle and posterior right xavier infarct-->[facility] [place] Neuro Hypothyroidism (Chronic 2007) S/p I?131 ablation for Graves' disease 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) Stroke (~11/13/16) (R) MCA s/p TPA due to (R) ICA dissection Surgical History History of endarterectomy (~10/2017) R ileofemoral S/P arthroscopy of left shoulder (~2001) H/O fasciotomy (~10/29/17) RLE History of common carotid artery stent placement Family History Mother Hypothyroid Lupus Cervical cancer Lung cancer Thyroid cancer Father ALS (amyotrophic lateral sclerosis) Substance abuse Grandmother Neoplasm breast--PGM Paternal Grandfather Substance abuse Maternal Grandfather Heart disease Social History Smoking/Tobacco Use Status: Former Tobacco Use Quit Date: 11/10/16 Tobacco: How many years used: 24 Smoking risk assessment performed?: Yes Alcohol Intake: current Alcohol Intake frequency: a few times a week Alcohol type: beer Drug use: Never Substance use type: does not use Adopted: No Caregiver/Support person: No Foster care: No Household members: none Housing: apartment Number of Children: 0 Communication Needs: Corrective Lenses Education Level: high school Do you need help understanding health information?: Rarely current occupation: [employer] Pets and animals: Yes (1) Pets and animals: cat(s) Sexually active: Yes Do you think of yourself as: straight/heterosexual Current gender identity: female What is your relationship status?: How often do you talk on the phone with friends or family?: three or more times per week How often do you get together with friends or relatives?: three or more times per week How often do you attend zoroastrian or spiritism services?: decline to answer Do you belong to any clubs or organized social groups?: no Panel score (0-1 are the most socially isolated patients): 1 What type of physical activity do you participate in: walking Duration: 15-30 minutes/day Frequency: 5-6 times per week Seatbelt use: always Helmet use: Yes Drive intox or ride w/intox package delivery 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 PAWSS Have you Been Recently Intoxicated or Drunk Within the Last 30 days?: No Have you Ever Experienced Previous Episodes of Alcohol Withdrawal?: No Have you ever Experienced Withdrawal Seizures?: No Have you ever Experienced Delirium Tremens(DT)s?: No Have you ever undergone Alcohol Rehabilitation Treatment (i.e, inpt ot outpatient treatment programs)?: No Have you ever Experienced Blackouts?: No Have you ever Combined Alcohol with other Downers within the last 90 days?: No Have you ever Combined Alcohol with any other Substance of Abuse during the last 90 days?: No Positive Blood Alcohol level on Presentation? [PCS.BAL]: No Evidence of Increased Autonomic Activity (i.e. HR>120, tremor, sweating, agitation, nausea)?: No Result: 0
== END 2023-05-16 09:42 | disposition home or self-care (01) ==
LOC: ER 09:42
PROVIDERS: Emergency Provider Emergency Medicine; PCP Nurse Practitioner Adult Health
DX: M25.531 Pain in right wrist (principal); M67.431 Ganglion, right wrist
CPT/HCPCS: 99281; 99283

== ENCOUNTER 2023-12-26 10:52 | Emergency (ER) | payer MEDICAID, SELFPAY ==
[2023-12-26 11:24] VITALS: BP 135/83; PULSE 78; RESP 17; TEMP 36.6
[2023-12-26] MEDS: Tetracaine 0.5% 4 ML BTL (11:40)
[2023-12-26] MEDS: Fluorescein STRIPS 100/BOX 1 MG (11:40)
[2023-12-26] MEDS: Balanced Salt Solution 15 ML BTL (11:40)
--- NOTE | 2023-12-26 11:58 | ED.GENADUL_ITS ---
Discharge Plan Disposition Patient Disposition: Home Discharge Details Clinical Impression: Headache Primary Care Provider: Sue Crum ED Provider: Jeanmarie Ashley Home Meds and New Rx's Prescriptions: Continued cholecalciferol (vitamin D3) 50 mcg (2,000 unit) capsule 50 mcg PO DAILY Qty: 90 3RF Rx Instructions: osteoporosis & vit D deficiency zoledronic omir-euzeoanl-tfehx [Reclast] 5 mg/100 mL piggyback See Rx Instructions IV ONCE Qty: 100 0RF Rx Instructions: 5mg IV once; administer over at least 15 mins aspirin [Aspir-81] 81 MG tablet,delayed release (DR/EC) 81 mg PO DAILY rosuvastatin [Crestor] 20 mg tablet 20 mg PO DAILY Qty: 90 3RF levothyroxine 88 mcg tablet See Rx Instructions .ROUTE .COMPLEX Qty: 90 3RF Dose Instruction: TAKE ONE TABLET BY MOUTH EVERY DAY Rx Instructions: TAKE ONE TABLET BY MOUTH EVERY DAY clopidogrel 75 mg tablet See Rx Instructions .ROUTE .COMPLEX Qty: 90 3RF Dose Instruction: TAKE ONE TABLET BY MOUTH EVERY DAY. Rx Instructions: TAKE ONE TABLET BY MOUTH EVERY DAY. amlodipine 5 mg tablet 5 mg PO DAILY Qty: 90 3RF Rx Instructions: Blood pressure; goal <130/80 Discharge Instructions Instructions: Headache, Adult ED Additional Instructions: You are seen in the emergency department for your headache. You are visual exam and neurological exam are reassuring at this point in time against stroke. As we discussed if your headache worsens or if you develop difficulty seeing weakness nausea or vomiting please return to the emergency department. Otherwise please follow-up with your pulpwood cutter tomorrow and your primary care provider next week. For your pain please take medications as follows: 1. Take acetaminophen (Tylenol), 1,000 mg (two 500 mg tabs) every 6 hours Discharge Data Discharge Date/Time-TO BE ENTERED AT DEPARTURE: 12/26/23 13:11 HPI General Date/Time Provider Initiated Documentation: 12/26/23 11:58 . HPI Narrative: MDM This is an overall very well-appearing normothermic and not tachycardic 43-year-old female with prior CVAs on dual antiplatelet therapy now with headache and allergic symptoms reassuring against any acute cervical arterial dissection. Patient did not have sudden onset maximal headache so my suspicion is low for subarachnoid hemorrhage. No recent chiropractic manipulation nor any focal new neurological deficits to suggest acute CVA. No pain or proportion to suggest necrotizing soft tissue infection. No generator exposure to suggest increased risk for carbon monoxide toxicity. No increased intraocular pressure to suggest acute closed angle glaucoma. No acute ocular pathology to suggest acute uveitis. No proptosis to suggest retrobulbar hematoma and no trauma. No neck pain or bruits to suggest cervical arterial dissection and no recent chiropractic manipulation. Based on her age and her lack of polymyalgia rheumatica I was not suspicious for giant cell arteritis so I did not feel that she required an ESR. Furthermore she had 20/20 vision in her eyes bilaterally. The minor abnormality on my neurological examination was consistent with neurological examination completed at [facility] [place] 2 years ago. No palpitations or syncope so my suspicion for dysrhythmia was low so I did not obtain ECG. Patient does not have an elevated BMI so my suspicion is low for idiopathic intracranial hypertension. No tonic-clonic activity to suggest benefit from EEG as my suspicion is low for seizure. Patient denies any recent falls and is no signs of head trauma so my suspicion is low for intracranial hemorrhage. No rash to face to suggest zoster. Not altered to suggest encephalitis. No nuchal rigidity to suggest meningitis. I spoke with the patient and her mother and advised ED return for any focal areas of weakness any nausea or vomiting or any worsened headache. I offered acetaminophen but patient will take this at home. Patient is due to see ophthalmology tomorrow. Chronic conditions affecting the care of the patient: Carotid arterial dissection History obtained from an outside historian: Mother External record review: [facility] EMR Medications: N/A Social determinants of health affecting disposition: N/A Management discussed with: N/A Treatment/interventions considered: N/A Response to therapies provided: N/A HPI This is a 43-year-old female history of prior CVA and carotid arterial dissection with history of Spence syndrome arrived to the emergency department via private vehicle with her mother in setting of headache she developed gradually this morning. She endorses a pressure at the top of her head and in her temples. She feels a pressure behind her right eye. She has had no visual changes no double vision. No numbness weakness nausea vomiting. No dysuria nor frequency. No recent fevers. She does not wear contacts. She has not taken any falls. She denies routine tobacco, ethanol, and illicits. She notes that her symptoms feel different than her prior symptoms of CVA. She is due to see ophthalmology tomorrow. She has had some pressure in her sinuses as result of recent allergies. No recent generator exposure. Exam General: Well-appearing in no acute distress speaking in complete sentences. Head: Normocephalic, atraumatic. Eye:[Pupils equal, round reactive to light.] Extraocular eye movements intact. No conjunctival injection. No scleral icterus. Lids and lashes normal on inspection. No uptake on fluorescein stain. Anterior chamber deep and quiet. No hyphema. Intraocular pressure on the right 15 mmHg. Ear, nose, mouth, throat: Grossly normal inspection. Normal voice, handling secretions normally. Symmetrical palatal elevation. Neck: Trachea midline. No carotid bruits. Cardiovascular: Well-perfused distal extremities. Regular rate and rhythm. Respiratory: Nonlabored respiration. Gastrointestinal: Nondistended abdomen. Musculoskeletal: No edema. Moving all 4 extremities spontaneously. Skin: Normal for age and race, grossly normal temperature and turgor. No acute rash. Neurologic: Alert and appropriate, no apparent acute deficits. Alert and oriented fluent speech. No dysarthria nor paraphasic errors. No facial asymmetry. Cranial nerves II through XII intact grossly beyond mild right-sided facial droop. Mom reports face appears at baseline. GCS 15. No dysmetria. No dysdiadochokinesia. Psychiatric: Mood and manner are appropriate. Grooming and personal hygiene are appropriate. Related Data Home Medications ?Medication ?Instructions ?Recorded ?Confirmed aspirin 81 mg tablet,delayed 81 mg PO DAILY 06/12/17 12/26/23 release (Aspir-) zoledronic acid 5 mg/100 mL in See Rx Instructions IV ONCE #100 mL 12/14/21 12/26/23 mannitol 5 %-water intravenous piggybck (Reclast) cholecalciferol (vitamin D3) 50 50 mcg PO DAILY #90 caps 08/03/22 12/26/23 mcg (2,000 unit) capsule rosuvastatin 20 mg tablet (Crestor) 20 mg PO DAILY #90 tabs 08/16/22 12/26/23 levothyroxine 88 mcg tablet See Rx Instructions .Route 05/16/23 12/26/23 .COMPLEX #90 tabs amlodipine 5 mg tablet 5 mg PO DAILY #90 tabs 11/20/23 12/26/23 clopidogrel 75 mg tablet See Rx Instructions .Route 11/20/23 12/26/23 .COMPLEX #90 tabs Previous Rx's ?Medication ?Instructions ?Recorded zoledronic acid 5 mg/100 mL in See Rx Instructions IV ONCE #100 mL 12/14/21 mannitol 5 %-water intravenous piggybck (Reclast) cholecalciferol (vitamin D3) 50 50 mcg PO DAILY #90 caps 08/03/22 mcg (2,000 unit) capsule rosuvastatin 20 mg tablet (Crestor) 20 mg PO DAILY #90 tabs 08/16/22 levothyroxine 88 mcg tablet See Rx Instructions .Route 05/16/23 .COMPLEX #90 tabs amlodipine 5 mg tablet 5 mg PO DAILY #90 tabs 11/20/23 clopidogrel 75 mg tablet See Rx Instructions .Route 11/20/23 .COMPLEX #90 tabs Allergies Allergy/AdvReac Type Severity Reaction Status Date / Time ragweed pollen Allergy Intermediate stuffy, Verified 12/26/23 11:39 sneezing cephalexin Allergy Mild Skin Rash Verified 12/26/23 11:39 General Stated Complaint: Headache JOYCE: 3 Course Vital Signs Vital signs: Vital Signs Temperature 36.6 C 12/26/23 11:24 Pulse 78 12/26/23 11:24 Respiratory Rate 17 12/26/23 11:24 Blood Pressure 135/83 12/26/23 11:24 Temperature 36.6 C 12/26/23 11:24 Pulse 78 12/26/23 11:24 Respiratory Rate 17 12/26/23 11:24 Respiratory Effort Normal, Non-Labored 12/26/23 11:39 Blood Pressure 135/83 12/26/23 11:24 Oxygen Delivery Method Room Air 12/26/23 11:24 Oxygen Flow Rate 0 12/26/23 11:24 Medical Decision Making Quality:SDOH Health Related Social Needs: No Data to Display PFSH All Active Problems (Updated 12/26/23 @ 12:51 by Jeanmarie Ashley MD) Headache (Acute) Otalgia of left ear (Acute) Tonsil asymmetry (Acute) Acute dysfunction of both eustachian tubes (Acute) Sensorineural hearing loss (SNHL) of both ears (Acute) Vitamin D deficiency (Acute) Essential hypertension (Acute) <130/80 Dr [place] Stroke (Chronic ~08/2021) right middle cerebellar peduncle and posterior right xavier infarct-->[facility] [place] Neuro Hypothyroidism (Chronic 2007) S/p I?131 ablation for Graves' disease 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) Stroke (~11/13/16) (R) MCA s/p TPA due to (R) ICA dissection Surgical History History of endarterectomy (~10/2017) R ileofemoral S/P arthroscopy of left shoulder (~2001) H/O fasciotomy (~10/29/17) RLE History of common carotid artery stent placement Family History Mother Hypothyroid Lupus Cervical cancer Lung cancer Thyroid cancer Father ALS (amyotrophic lateral sclerosis) Substance abuse Grandmother Neoplasm breast--PGM Paternal Grandfather Substance abuse Maternal Grandfather Heart disease Social History Smoking/Tobacco Use Status: Former Tobacco Use Quit Date: 11/10/16 Tobacco: How many years used: 24 Smoking risk assessment performed?: Yes Alcohol Intake: current Alcohol Intake frequency: a few times a month Alcohol type: beer Drug use: Never Substance use type: does not use Adopted: No Caregiver/Support person: No Foster care: No Household members: none Housing: apartment Number of Children: 0 Communication Needs: Corrective Lenses Education Level: high school Do you need help understanding health information?: Rarely 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, [employer] Pets and animals: Yes (1) Pets and animals: cat(s) Sexually active: Yes Do you think of yourself as: straight/heterosexual Current gender identity: female What is your relationship status?: How often do you talk on the phone with friends or family?: three or more times per week How often do you get together with friends or relatives?: three or more times per week How often do you attend taoism or adventism services?: decline to answer Do you belong to any clubs or organized social groups?: no Panel score (0-1 are the most socially isolated patients): 1 What type of physical activity do you participate in: walking Duration: 15-30 minutes/day Frequency: 5-6 times per week Seatbelt use: always Helmet use: Yes Drive intox or ride w/intox food mobile 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
[2023-12-26 12:43] VITALS: BP 117/79; PULSE 70; RESP 18; TEMP 36.6; O2SAT 95
[2023-12-26 13:14] VITALS: BP 117/79; PULSE 70; RESP 18; TEMP 36.6; O2SAT 95
== END 2023-12-26 13:11 | disposition home or self-care (01) ==
PROVIDERS: Emergency Provider Emergency Medicine; PCP Nurse Practitioner Adult Health
DX: R51.9 Headache, unspecified (principal)
CPT/HCPCS: 99282; 99283

== ENCOUNTER 2024-04-21 02:38 | Outpatient (CLI) | payer MEDICAID, SELFPAY ==
[2024-04-21 12:02] LABS: Anion Gap 8.5 mmol/L (3-11); BUN 8 mg/dL (7-18); CO2 27.5 mmol/L (21.0-32.0); CREATININE 0.9 mg/dL (0.55-1.02); Calcium 8.8 mg/dL (8.5-10.1); Calculated LDL 61 mg/dL (<100); Chloride 109 mmol/L (98-107); Cholesterol 149 mg/dL (<200); Estimated GFR 81.35 (mL/min/1.73m2); Glucose 103 mg/dL (74-106); HDL Cholesterol 73 mg/dL (40-60); Potassium 4.4 mmol/L (3.5-5.1); Sodium 145 mmol/L (136-145); TSH (W/Ref FT4) 2.28 uIU/mL (0.36-3.74); Triglyceride 77 mg/dL (<150); Vitamin D 25 Total 54.2 ng/mL (30-100)
== END 2024-04-21 02:39 | disposition home or self-care (01) ==
LOC: LBO 02:38
PROVIDERS: PCP Nurse Practitioner Adult Health; Visit Provider Nurse Practitioner Adult Health
DX: I10 Essential (primary) hypertension (principal); E03.9 Hypothyroidism, unspecified; E55.9 Vitamin D deficiency, unspecified; M81.0 Age-related osteoporosis without current pathological fracture
CPT/HCPCS: 36415; 80048; 80061; 82306; 84443

== ENCOUNTER 2024-09-01 02:23 | Outpatient (CLI) | payer MEDICAID, SELFPAY ==
--- NOTE | 2024-09-01 07:15 | DI.DEXA_ITS ---
Exam(s) XR DEXA BONE DENSITY W/WO CLIFF EXAM: XR DEXA BONE DENSITY W/WO CLIFF CLINICAL HISTORY: vit d defiency,e55.9,osteoporosis,turners syndrome TECHNIQUE: COMPARISON: CR XR DEXA BONE DENSITY W/WO CLIFF from 03/24/2022 CR,XR XR LUMBAR SPINE COMPLETE from 08/12/2022 FINDINGS: Lateral Spine Image: Unremarkable. No compression deformities identified. Left hip: Total T-Score: -3.3. This compares to -3.2 on the prior examination. Total Z-Score: -3.1 T- and Z-scores: Findings are consistent with osteoporosis. Lumbar Spine: Total T-Score: -4.4. This compares to -4.7 on the prior examination. Total Z-Score: -4.0 T- and Z-scores: Findings are consistent with osteoporosis. IMPRESSION: Findings are consistent with osteoporosis in the left hip and lumbar spine.
== END 2024-09-01 02:43 ==
LOC: DI 02:23
PROVIDERS: PCP Nurse Practitioner Adult Health; Visit Provider Nurse Practitioner Adult Health
DX: M81.0 Age-related osteoporosis without current pathological fracture (principal); E55.9 Vitamin D deficiency, unspecified
CPT/HCPCS: 77080

== ENCOUNTER 2024-09-30 09:17 | Observation (INO) | payer MEDICAID, SELFPAY ==
[2024-09-30] VITALS (14 sets, daily range): BP systolic 95–142; BP diastolic 67–87; PULSE 61–75; RESP 11–20; TEMP 36–36.6; O2SAT 96–100
--- NOTE | 2024-09-30 | DI.MRI_ITS ---
Exam(s) MR BRAIN WO EXAM: MR BRAIN WO CLINICAL HISTORY: CVA. TECHNIQUE: Multiplanar multisequence MRI of the brain was performed. CONTRAST MATERIAL: Noncontrast COMPARISON: MR MR ANGIO BRAIN WO from 08/24/[address] BRAIN NECK CTA from 09/30/2024 FINDINGS: VENTRICLES AND EXTRA AXIAL SPACES: Stable ventricular asymmetry. HEMORRHAGE: None. CEREBRAL PARENCHYMA: No focus of restricted diffusion to suggest acute infarct. No space-occupying lesion identified. Minimal scattered high signal foci in the white matter. BRAINSTEM/CEREBELLUM: Normal. CALVARIUM: Normal. VISUALIZED PARANASAL SINUSES/MASTOIDS: Clear. Orbits: Unremarkable. Pituitary: Not enlarged. Vasculature: Normal flow voids. A dilated distal right internal carotid artery again noted. IMPRESSION: No evidence of acute infarct. DATA REPOSITORY:
--- NOTE | 2024-09-30 09:15 | RT.EKG_ITS ---
APPROVED REPORT Exam: Resting ECG Reason for Exam: Left sided numbness Patient Location: E HR:64 bpm ECG Measurements Heart Rate 64 AXIS OR 119 P 53 QRSd 90 QRS 36 QT 406 T 35 QTc 421 Conclusion Sinus rhythm 64 normal axis no STEMI
--- NOTE | 2024-09-30 09:50 | W.ED.GENAD ---
Discharge Plan Disposition Patient Disposition: Admit to [facility] Condition: Fair Discharge Details Clinical Impression: Acute CVA (cerebrovascular accident) Primary Care Provider: Sue Crum ED Provider: Nimco Landon Home Meds and New Rx's Prescriptions: No Action cholecalciferol (vitamin D3) 50 mcg (2,000 unit) capsule 50 mcg PO DAILY Qty: 90 3RF Rx Instructions: osteoporosis & vit D deficiency loratadine [Claritin] 10 mg tablet 10 mg PO DAILY aspirin [Aspir-81] 81 MG tablet,delayed release (DR/EC) 81 mg PO DAILY clopidogrel 75 mg tablet See Rx Instructions .ROUTE .COMPLEX Qty: 90 3RF Dose Instruction: TAKE ONE TABLET BY MOUTH EVERY DAY. Rx Instructions: TAKE ONE TABLET BY MOUTH EVERY DAY. amlodipine 5 mg tablet 5 mg PO DAILY Qty: 90 3RF Rx Instructions: Blood pressure; goal <130/80 rosuvastatin [Crestor] 20 mg tablet 20 mg PO DAILY Qty: 90 3RF levothyroxine 88 mcg tablet See Rx Instructions .ROUTE .COMPLEX Qty: 90 3RF Dose Instruction: TAKE ONE TABLET BY MOUTH EVERY DAY Rx Instructions: TAKE ONE TABLET BY MOUTH EVERY DAY HPI General Date/Time Provider Initiated Documentation: 09/30/24 09:31. Limitations to Documentation: no limitations. Information obtained by: patient and family. HPI Narrative: 44-year-old female with past medical history of Spence syndrome, carotid dissection, CVA, hypertension presents for evaluation of left sided facial droop, numbness and left-sided heaviness. She reports onset of symptoms between 730 and 8 AM this morning. She reports that she started to not feel very well and the family member with her center to sit down. Family member notes that the onset of facial asymmetry started at that time as well. Patient does have history of CVA. Prior deficits include right sided vision deficit and some right-sided hearing loss. Related Data Home Medications ?Medication ?Instructions ?Recorded ?Confirmed aspirin 81 mg tablet,delayed 81 mg PO DAILY 06/12/17 08/07/24 release (Aspir-) cholecalciferol (vitamin D3) 50 50 mcg PO DAILY #90 caps 08/03/22 08/07/24 mcg (2,000 unit) capsule amlodipine 5 mg tablet 5 mg PO DAILY #90 tabs 11/20/23 08/07/24 clopidogrel 75 mg tablet See Rx Instructions .Route 11/20/23 08/07/24 .COMPLEX #90 tabs rosuvastatin 20 mg tablet (Crestor) 20 mg PO DAILY #90 tabs 02/18/24 08/07/24 levothyroxine 88 mcg tablet See Rx Instructions .Route 06/09/24 08/07/24 .COMPLEX #90 tabs loratadine 10 mg tablet (Claritin) 10 mg PO DAILY 08/07/24 08/07/24 Previous Rx's ?Medication ?Instructions ?Recorded cholecalciferol (vitamin D3) 50 50 mcg PO DAILY #90 caps 08/03/22 mcg (2,000 unit) capsule amlodipine 5 mg tablet 5 mg PO DAILY #90 tabs 11/20/23 clopidogrel 75 mg tablet See Rx Instructions .Route 11/20/23 .COMPLEX #90 tabs rosuvastatin 20 mg tablet (Crestor) 20 mg PO DAILY #90 tabs 02/18/24 levothyroxine 88 mcg tablet See Rx Instructions .Route 06/09/24 .COMPLEX #90 tabs Allergies Allergy/AdvReac Type Severity Reaction Status Date / Time ragweed pollen Allergy Intermediate stuffy, Verified 08/07/24 10:14 sneezing cephalexin Allergy Mild Skin Rash Verified 08/07/24 10:14 General Stated Complaint: CVA/TIA JOYCE: 2 Exam Narrative Exam Narrative: Review of Systems: All systems reviewed & are unremarkable except as noted in HPI and below Well-developed NCAT PERRL, normal conjunctiva , no nystagmus RRR no murmur Unlabored respiratory effort clear bilaterally Nondistended abdomen soft nontender Left-sided facial droop noted, speech is slightly dysarthric, but easy to understand, left upper and lower extremities 4 out of 5 strength, gait normal Course Vital Signs Vital signs: Vital Signs Temperature 36.4 C L 09/30/24 09:20 Pulse 69 09/30/24 09:20 Respiratory Rate 16 09/30/24 09:20 Blood Pressure 122/76 09/30/24 09:20 Pulse Oximetry 96 09/30/24 09:20 Temperature 36.4 C L 09/30/24 09:20 Temperature Source Oral 09/30/24 09:20 Pulse 69 09/30/24 09:20 Respiratory Rate 16 09/30/24 09:20 Blood Pressure 122/76 09/30/24 09:20 Blood Pressure Position Sitting 09/30/24 09:20 Pulse Oximetry 96 09/30/24 09:20 Oxygen Delivery Method Room Air 09/30/24 09:20 Oxygen Flow Rate 0 09/30/24 09:20 Pain Level 0 09/30/24 09:20 Medical Decision Making Emergent evaluation of acute neurologic deficit. Last known normal 7:30 AM. Patient has history of CVA. Concern for acute neurologic deficit at this time. A stroke code has been called immediately after evaluation. Patient will be sent emergently for imaging. Anticipate teleneuro. CTA radiographs of brain and neck reviewed, no evidence of LVO, or bleeding. Discussed this with the radiologist Dr. Reina who concurs. Teleneurology consultation was performed. Discussed with neurologist. Concurs that there is mild dysarthria, nasolabial fold flattening on the left. Given patient's acute neurologic findings, she is within the window for thrombolytic therapy however after discussion with neurologist, patient does not want thrombolysis. Neurology recommendations include full dose of aspirin, Plavix load, restart patient on DOAC. If there is acute stroke noted on MRI, he would recommend Brilinta. Further recommendations include hypercoagulable workup, MRI and echocardiogram. Discussed with the hospitalist who will admit this patient for further management. PFSH All Active Problems (Updated 09/30/24 @ 11:23 by Nimco Landon MD) Acute CVA (cerebrovascular accident) (Acute) Impaired fasting glucose (Chronic) Otalgia of left ear (Acute) Tonsil asymmetry (Acute) Acute dysfunction of both eustachian tubes (Acute) Sensorineural hearing loss (SNHL) of both ears (Acute) Vitamin D deficiency (Acute) Essential hypertension (Acute) <130/80 Dr [place] Stroke (Chronic ~08/2021) right middle cerebellar peduncle and posterior right [place] infarct[place] [place] Hyp[place] (Chronic 2007) S/p I?131 ablation for Graves' disease 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 Osteoporosis (Chronic ~2018) Severe T score -4.9 spine, -3.6 hip RECLAST: She's had it x5--07/2020 and 08/2021; pending 2022 Last DEXA 03/2022 Medical History (Updated 09/30/24 @ 11:23 by Nimco Landon MD) Closed fracture of 3rd metacarpal Elevated BUN Solitary kidney Irritable bowel syndrome Femoral artery occlusion, right (~10/2017) Depression Carotid artery dissection Left-sided nontraumatic intracerebral hemorrhage (10/30/17) Stroke (~11/13/16) (R) MCA s/p TPA due to (R) ICA dissection Surgical History History of endarterectomy (~10/2017) R ileofemoral S/P arthroscopy of left shoulder (~2001) H/O fasciotomy (~10/29/17) RLE History of common carotid artery stent placement Family History (Updated 08/07/24 @ 09:[address] RN) Mother Age: 67 Hypothyroid Lupus Cervical cancer Lung cancer Thyroid cancer Father ALS (amyotrophic lateral sclerosis) Substance abuse Grandmother Neoplasm breast--PGM Paternal Grandfather Substance abuse Maternal Grandfather Heart disease Social History (Updated 08/07/24 @ 10:[address] RN) Smoking/Tobacco Use Status: Former Tobacco Use Quit Date: 11/10/16 Tobacco: How many years used: 24 Quit status: has quit before Smoking risk assessment performed?: Yes Alcohol Intake: current Alcohol Intake frequency: a few times a week Alcohol type: beer Drug use: Never Substance use type: does not use Adopted: No Caregiver/Support person: No Foster care: No Household members: none Housing: apartment Number of Children: 0 Communication Needs: Corrective Lenses Education Level: high school Do you need help understanding health information?: Rarely current occupation: [place] Pets and animals: Yes (1) Pets and animals: cat(s) Sexually active: Yes Do you think of yourself as: straight/heterosexual Current gender identity: female What is your relationship status?: How often do you talk on the phone with friends or family?: three or more times per week How often do you get together with friends or relatives?: three or more times per week How often do you attend rastafarian or faith services?: decline to answer Do you belong to any clubs or organized social groups?: no Panel score (0-1 are the most socially isolated patients): 1 What type of physical activity do you participate in: walking Duration: > 90 minutes/day Frequency: 5-6 times per week Seatbelt use: always Helmet use: Yes Drive intox or ride w/intox driver service technician: No Water heater temp set <120 deg: Yes Working smoke detector in home: Yes Fire extinguisher in home: Yes Carbon monox detector in home: Yes Do you feel safe at home: Yes Do you feel safe in your relationship?: Yes History History 0 Para Hx # Term Pregnancies Multiple births Hx # Pregnancies Ectopic pregnancies AB induced Hx Number of Living Children AB spontaneous
[2024-09-30 10:05] LABS: Abs Immature Grans 0.01 10^3/uL (0.0-0.06); HCT 38.9 % (36.0-46.0); HGB 13.1 g/dL (11.2-15.7); Immature Grans % 0.1 %; MCH 34.6 pg (27.0-33.0); MCHC 33.7 % (32.0-36.0); MCV 103 fL (80-95); MPV 10.8 fL (8.0-11.0); Platelet Count 264 10^3/uL (130-400); RBC 3.79 10^6/uL (3.93-5.22); RDW 11.2 % (11.7-14.6); RDW-SD 42.1 fL; WBC 7.36 10^3/uL (4.4-10.8)
[2024-09-30] MEDS: Normal Saline - Diluent 50 ML VIAL IJ (10:24)
[2024-09-30] MEDS: Omnipaque 350 MG/ML 100 ML BTL IJ (10:25)
[2024-09-30 10:26] LABS: INR 1.0 (0.9-1.1); PTT Activated 26.8 sec (20.6-30.2); Prothrombin Time 10.4 sec (9.1-11.1)
[2024-09-30 10:30] LABS: ALT 24 U/L (14-59); AST 23 U/L (15-37); Albumin 4.1 g/dL (3.4-5.0); Alkaline Phosphatase 71 U/L (46-116); Anion Gap 8.8 mmol/L (3-11); BUN 10 mg/dL (7-18); Bilirubin, Total 0.6 mg/dL (0.2-1.0); CO2 28.2 mmol/L (21.0-32.0); Chloride 102 mmol/L (98-107); Estimated GFR 109.30 (mL/min/1.73m2); Glucose 94 mg/dL (74-106); Magnesium 2.2 mg/dL (1.8-2.4); Potassium 3.4 mmol/L (3.5-5.1); Sodium 139 mmol/L (136-145); Total Protein 7.4 g/dL (6.4-8.2); Troponin I 6 ng/L (<or=51)
--- NOTE | 2024-09-30 10:30 | DI.CT_ITS ---
Exam(s) CT BRAIN NECK CTA EXAM: CT BRAIN NECK CTA CLINICAL HISTORY: LEFT FACIAL DROOP, LEFT WEAKNESS. TECHNIQUE: Imaging Protocol: Axial CT angiography was performed with multi- slice acquisition and multi-planar and MIP reconstructions. CONTRAST MATERIAL: Intravenous: Omnipaque 350 Contrast volume:100 ml COMPARISON: CT CT BRAIN NECK CTA from 10/03/[address] HEAD FACIAL WO from 12/10/2021 FINDINGS: CT Head W/O and W contrast: Ventricles and Extra axial spaces: Stable asymmetry in size of the ventricles. Hemorrhage: None. Cerebral parenchyma: No evidence of acute infarct or mass. Old lacunar infarct adjacent to the right lateral ventricle. Midline shift: None. Brainstem/Cerebellum: No acute findings.. Calvarium: Stable chronic deformity of the left frontal bone. Visualized Paranasal sinuses/Mastoids: Clear. Soft Tissues: Unremarkable. Enhancement: Normal. Venous sinuses are patent. CTA Brain W: Internal Carotid Arteries: Mild distal plaque. Right: No aneurysm, occlusion or significant stenosis. Left: No aneurysm, occlusion or significant stenosis. Middle Cerebral Arteries: Right: No aneurysm, occlusion or significant stenosis. Left: No aneurysm, occlusion or significant stenosis. Anterior Cerebral Arteries: Right: No aneurysm, occlusion or significant stenosis. Left: No aneurysm, occlusion or significant stenosis. Posterior cerebral Arteries: Right: No aneurysm, occlusion or significant stenosis. Left: No aneurysm, occlusion or significant stenosis. Vertebral Arteries: Right: No aneurysm, occlusion or significant stenosis. Left: No aneurysm, occlusion or significant stenosis. Basilar Artery: No aneurysm, occlusion or significant stenosis. CTA Neck W: Aberrant right subclavian artery Common Carotid: Calcific plaque at both common carotid bulbs without significant stenosis. Right: Tortuous distally. Stable appearance of dilatation of the distal portion of the internal carotid artery, above the C2 level to the skull base, above the level of focal area of narrowing at the previously noted dissection flap. Left: Tortuous distally. No dissection, occlusion or significant stenosis. External Carotid: Right: No dissection, occlusion or significant stenosis. Left: No dissection, occlusion. Focal area of stenosis proximally, approximately 70 percent. Similar to prior. Internal Carotid: Right: No dissection, occlusion or significant stenosis. Left: No dissection, occlusion or significant stenosis. Vertebral Artery: Right: No dissection, occlusion or significant stenosis. Left: No dissection, occlusion or significant stenosis. Lung Apices: No acute findings. Bones: Stable compression fractures of C7 through T2. No acute abnormality. Soft Tissues: Normal. IMPRESSION: 1. CTA brain: No evidence of aneurysm or significant stenosis.. 2. Head CT: No acute abnormality. 3. CTA neck: Stable appearance of dissection flap of the distal right internal carotid artery with distal few small rim dilatation extending to the level of the skull base. Approximate 70 percent stenosis of the proximal left external carotid artery. 4. Stable lower cervical and upper thoracic compression fractures. RADIATION DOSE DELIVERED: 2,183.32mGy.cm Total DLP DATA REPOSITORY: All CT scans at this facility are submitted to the National Radiology Data Registry (NRDR) Dose Index Registry (DIR) with the [employer] (ACR). RADIATION OPTIMIZATION: All CT scans at this facility use at least one of these dose optimization techniques: automated exposure control; mA and/or kV adjustment per patient size (includes targeted exams where dose is matched to clinical indication); or iterative reconstruction.
[2024-09-30 10:40] LABS: Calcium 9.1 mg/dL (8.5-10.1)
--- NOTE | 2024-09-30 11:31 | W.PM.HP.N ---
Date of service: 09/30/24 Time of Service: 11:32 Assessment and Plan Assessment and plan (1) Acute CVA (cerebrovascular accident): Status: Acute Assessment and plan: CT head negative for hemorrhage CTA neck: Stable appearance of dissection flap of the distal right internal carotid artery with distal few small rim dilatation extending to the level of the skull base. Approximate 70 percent stenosis of the proximal left external carotid artery. Has a Hx of right internal carotid dissection- failed stenosis dilation/stenting Neurology consult :full dose asa, plavix, restart DOAC, MRI, echo, hypercoag work up given stroke recurrence Eliquis initial dose given and change to Brilinta if acute stroke on MRI as per neuro recommendation MRI Echo with Bubble Lipids, A1C On crestor WORLD TRAVEL COUNSELOR will optimize dosing at 40 mg daily Hypercoagulaopathy work-up Telemetry: EKG in the ED SR HR 64 (2) Left-sided nontraumatic intracerebral hemorrhage: Assessment and plan: History of in 2021 but reported 4 CV events from age 20 (3) Essential hypertension: Status: Acute Assessment and plan: As per neurology - goal 130/80 ( 2021) (4) Hypothyroidism: Status: Chronic Assessment and plan: Ongoing outpatient management (5) Congenital solitary kidney: Status: Acute Assessment and plan: Close monitoring of renal funtion (6) Depression: Assessment and plan: Continue outpaitent therapy Discussed with Dr. Elkins History of Present Illness History of Present Illness Chief Complaint: mild dysarthria, left facial flatting, TAN/LE weakness. Narrative: This 44 year old female patient with PMHx significant for cerebellar CVA related to severe intracranial atherosclerosis, HTN ,carotid stenosis, carotid dissection, hypothyroid, Spence syndrome, congenital solitary kidney, insomnia, osteoporosis presented to [facility] via private car for evaluation of with mild dysarthria, left facial paresthesia similar to previous presentation of CVA starting after 07:30. Head and neck CTA negative for new acute findings. Blood work was normal except for potassium at 3.4. [place] [facility] [place] exam findings were consistent with acute stroke, but given minor symtpoms, low NIH scale the fact that the patient did not want thrombolyticsm, no recommendations made for tPA. Recommendations for admission and stroke work-up with ASA full dose, plavix load, MRI and hypercoagulopathy work-up emitted. The patient was admitted to the medical surgical floor with telemetry. The patient denies fever, new headache, syncope, chest pain, nausea, vomiting, or any dysuria. Patient reports now resolved symptoms of paresthesia from mid-left cheek to chin, dry sensation to left eye, ongoing sinus like pain which is chronic. Full code status confirmed. Review of Systems All systems reviewed & are unremarkable except as noted in HPI and below PFSH All Active Problems (Updated 09/30/24 @ 11:23 by Nimco Landon MD) Acute CVA (cerebrovascular accident) (Acute) Impaired fasting glucose (Chronic) Otalgia of left ear (Acute) Tonsil asymmetry (Acute) Acute dysfunction of both eustachian tubes (Acute) Sensorineural hearing loss (SNHL) of both ears (Acute) Vitamin D deficiency (Acute) Essential hypertension (Acute) <130/80 Dr [place] Stroke (Chronic ~08/2021) right middle cerebellar peduncle and posterior right [place]avier infarct[place] [place] (Chronic 2007) S/p I?131 ablation for Graves' disease 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 Osteoporosis (Chronic ~2018) Severe T score -4.9 spine, -3.6 hip RECLAST: She's had it x5--07/2020 and 08/2021; pending 2022 Last DEXA 03/2022 Medical History (Updated 09/30/24 @ 11:23 by Nimco Landon MD) Closed fracture of 3rd metacarpal Elevated BUN Solitary kidney Irritable bowel syndrome Femoral artery occlusion, right (~10/2017) Depression Carotid artery dissection Left-sided nontraumatic intracerebral hemorrhage (10/30/17) Stroke (~11/13/16) (R) MCA s/p TPA due to (R) ICA dissection Surgical History History of endarterectomy (~10/2017) R ileofemoral S/P arthroscopy of left shoulder (~2001) H/O fasciotomy (~10/29/17) RLE History of common carotid artery stent placement Family History (Updated 08/07/24 @ 09:[address] RN) Mother Age: 67 Hypothyroid Lupus Cervical cancer Lung cancer Thyroid cancer Father ALS (amyotrophic lateral sclerosis) Substance abuse Grandmother Neoplasm breast--PGM Paternal Grandfather Substance abuse Maternal Grandfather Heart disease Social History (Updated 08/07/24 @ 10:[address] RN) Smoking/Tobacco Use Status: Former Tobacco Use Quit Date: 11/10/16 Tobacco: How many years used: 24 Quit status: has quit before Smoking risk assessment performed?: Yes Alcohol Intake: current Alcohol Intake frequency: a few times a week Alcohol type: beer Drug use: Never Substance use type: does not use Adopted: No Caregiver/Support person: No Foster care: No Household members: none Housing: apartment Number of Children: 0 Communication Needs: Corrective Lenses Education Level: high school Do you need help understanding health information?: Rarely current occupation: [place] Pets and animals: Yes (1) Pets and animals: cat(s) Sexually active: Yes Do you think of yourself as: straight/heterosexual Current gender identity: female What is your relationship status?: How often do you talk on the phone with friends or family?: three or more times per week How often do you get together with friends or relatives?: three or more times per week How often do you attend jewish or advent services?: decline to answer Do you belong to any clubs or organized social groups?: no Panel score (0-1 are the most socially isolated patients): 1 What type of physical activity do you participate in: walking Duration: > 90 minutes/day Frequency: 5-6 times per week Seatbelt use: always Helmet use: Yes Drive intox or ride w/intox snaker 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 Meds Allergies and Home Medications Allergies Allergy/AdvReac Type Severity Reaction Status Date / Time ragweed pollen Allergy Intermediate stuffy, Verified 08/07/24 10:14 sneezing cephalexin Allergy Mild Skin Rash Verified 08/07/24 10:14 Home Medications ?Medication ?Instructions ?Recorded ?Confirmed ?Type aspirin 81 mg tablet,delayed 81 mg PO DAILY 06/12/17 09/30/24 History release (Aspir-) cholecalciferol (vitamin D3) 50 50 mcg PO DAILY #90 caps 08/03/22 09/30/24 Rx mcg (2,000 unit) capsule amlodipine 5 mg tablet 5 mg PO DAILY #90 tabs 11/20/23 09/30/24 Rx clopidogrel 75 mg tablet See Rx Instructions .Route 11/20/23 09/30/24 Rx .COMPLEX #90 tabs rosuvastatin 20 mg tablet (Crestor) 20 mg PO DAILY #90 tabs 02/18/24 09/30/24 Rx levothyroxine 88 mcg tablet See Rx Instructions .Route 06/09/24 09/30/24 Rx .COMPLEX #90 tabs loratadine 10 mg tablet (Claritin) 10 mg PO DAILY 08/07/24 09/30/24 History Exam Narrative Exam Narrative: Alert and oreinted X4 , no acute focal neuro-deficit , NIH scale neagtive when see, Clear lungs, S1, S2 , regular, abdomen in non-acute, no CVA tenderness Results Labs 09/30/24 09:54 09/30/24 09:54 Labs: Laboratory Results - last 24 hr 09/30/24 09:54 WBC 7.36 RBC 3.79 L Hgb 13.1 Hct 38.9 MCV 103 H MCH 34.6 H MCHC 33.7 RDW 11.2 L Plt Count 264 MPV 10.8 Immature Gran % 0.1 Neutrophils % 52.9 Lymphocytes % 35.5 Monocytes % 8.3 Eosinophils % 2.7 Basophils % 0.5 Nucleated RBC % 0.0 Absolute Neutrophils 3.89 Absolute Lymphocytes 2.61 Absolute Monocytes 0.61 Absolute Eosinophils 0.20 Absolute Basophils 0.04 PT 10.4 INR 1.0 APTT 26.8 Sodium 139 Potassium 3.4 L Chloride 102 Carbon Dioxide 28.2 Anion Gap 8.8 BUN 10 Creatinine 0.7 Est GFR (CKD-EPI 2020) 109.30 Glucose 94 Calcium 9.1 Magnesium 2.2 Total Bilirubin 0.6 AST 23 ALT 24 Alkaline Phosphatase 71 Troponin I 6 Total Protein 7.4 Albumin 4.1 Last Vital Signs Temp 36.4 C L 09/30/24 09:20 Pulse 69 09/30/24 09:20 Resp 16 09/30/24 09:20 BP 122/76 09/30/24 09:20 Pulse Ox 96 09/30/24 09:20 Time Spent Time spent with Patient: >75 minutes Time was spent: preparing to see the patient(eg.review tests), obtaining and/or reviewing separately otained hiistory, ordering medications,tests, procedures, referring, communicating with other health primary care physician, indepentently interpreting results, counseling the patient and care coordination
[2024-09-30] MEDS: Clopidogrel 300 MG TAB PO (11:40)
[2024-09-30] MEDS: Aspirin 81 MG CHEW (11:45)
[2024-09-30 11:58] LABS: Troponin I 6 ng/L (<or=51)
[2024-09-30 12:20] LABS: Glucose Negative (Negative)
[2024-09-30 12:28] LABS: Hemoglobin A1C 5.6 % (<5.7)
[2024-09-30 12:36] LABS: Calculated LDL 63 mg/dL (<100); Cholesterol 147 mg/dL (<200); HDL Cholesterol 66 mg/dL (>or=50); TSH 1.28 uIU/mL (0.36-3.74); Triglyceride 92 mg/dL (<150)
[2024-09-30 12:40] LABS: Cannabinoids THC Negative (Negative); METHADONE URINE SCREEN Negative (Negative)
[2024-09-30 14:47] LABS: Troponin I 8 ng/L (<or=51)
[2024-09-30] MEDS: Acetaminophen 325 MG TAB 650 MG PO ×2 (15:25→15:29)
[2024-09-30] MEDS: Docusate Sodium 100 MG CAP PO ×2 (15:25→19:30)
--- NOTE | 2024-09-30 16:29 | PT.INIE ---
PT Notes Visit Reasons: Cerebrovascular accident Physical Therapy Inpatient Initial Evaluation Date: 09/30/2024 Referring Doctor Kiana Almazan NP PT Orders: PT CONSULT: Safety consult for discharge, fall safety assessment Precautions: Standard, telemetry, Patient Profile/Admitting Diagnosis: Patient is 44-year-old female presented to the ED with left-sided facial droop and dysarthria. Imaging revealed no acute infarct. 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[place] [place] (Chronic [place]) S/p I?131 ablation for Graves' diseaseTurner's syndrome (Chronic 08/1980) Congenital solitary kidney (Acute) Born with horseshoe kidney (Spence syndrome)Insomnia (Chronic) MelatoninUrinary frequency (Chronic) 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Osteoporosis (Chronic ~2018) Severe T score -4.9 spine, -3.6 hip RECLAST: She's had it x5--07/2020 and 08/2021; pending 2022 Last DEXA 03/2022 Medical History (Updated 09/30/24 @ 11:23 by Nimco Landon MD) Closed fracture of 3rd metacarpal Elevated BUN Solitary kidney Irritable bowel syndrome Femoral artery occlusion, right (~10/2017) Depression Carotid artery dissection Left-sided nontraumatic intracerebral hemorrhage (10/30/17) Stroke (~11/13/16) (R) MCA s/p TPA due to (R) ICA dissection Surgical History History of endarterectomy (~10/2017) R ileofemoralS/P arthroscopy of left shoulder (~2001) H/O fasciotomy (~10/29/17) RLEHistory of common carotid artery stent placement Social History/Home Situation: Lives alone in an apartment no stairs to enter. Independent ADLs ambulation. Patient employed full-time at [employer] in [place]. Independent med management independent meals Equipment Owned/DME: None Subjective: Patient reports she feels so much better than she did this morning. She states her voice is back to normal now. Objective: [] General Observation: Presented supine in bed IV access right upper extremity telemetry in place. Slight left facial droop at mouth downward turn Mental Status: Alert and oriented x 4, cooperative, able to follow all instructions, agreeable to participate in evaluation Pain: Denies ROM: [] Right Upper Extremity: WNL Left Upper Extremity: WNL Right Lower Extremity: WNL Left Lower Extremity: WNL Strength: [] Right Upper Extremity: 5/5 Left Upper Extremity: 5/5 Right Lower Extremity: 5/5 Left Lower Extremity: 5/5 Sensation: Intact Bed Mobility/Transfers: [] Supine to sit independent Sit to stand independent Stand to sit independent Bed to chair independent Gait: Ambulated 300 feet without assistive device without loss of balance reciprocal pattern including directional changes on level surfaces. Pt required n assistance for ambulation including 180 degree turns and obstacle management Balance: [] Static Sitting: Normal Dynamic Sitting normal Static Standing: Normal Dynamic Standing: Normal Special Tests: [] Mobility Limitations Standardized Measure [] [facility] 6 clicks Basic Mobility Inpatient Short Form: [] Raw Score: 24 CMS Score: 0% deficit Informed Consent/Education: Patient instructed in purpose of PT consult. Assessment: Chelle is a 44-year-old female presenting to the ED with sudden onset of left-sided facial droop and slight dysarthria. Pt continues with slight facial droop at this time. Patient demonstrates no deficits of strength, balance or functional limitations including ambulation and stairs. Patient is assessed as a low complexity based on the following: History: 44-year-old female with impairment level findings, functional limitations, and past medical history as indicated above Examination: as documented above Presentation: Stable Decision Making: Low Goals: N/A. PT evaluation Plan of Care/Treatment Plan: N/A. PT evaluation DISCHARGE RECOMMENDATIONS: Home with no services TREATMENT CODE/TIME: 05029/[id number] Thank you for the opportunity to participate in the care of this patient. Please sign an return this page within 30 days if you agree with the above POC. Thank you! Physician Signature Date [facility]
--- NOTE | 2024-09-30 18:39 | W.PC.ACHO ---
Registration Status: ADM JR Primary Language: Preferred Language: French ED Information & Data Chief Complaint CVA/TIA 09/30/24 09:53 Triage Note Pt reports numbness on L 09/30/24 09:20 side of face and heaviness on L side of body. Pt endorses hx of CVA Medical / Surgical History (Last Updated 08/07/24 @ 10:38 by Sue Crum NP) Closed fracture of 3rd metacarpal Elevated BUN Irritable bowel syndrome Femoral artery occlusion, right (~10/2017) Depression Carotid artery dissection Left-sided nontraumatic intracerebral hemorrhage (10/30/17) Stroke (~11/13/16) (Last Reviewed 08/12/22 @ 10:28 by Lillie Parikh NP) History of endarterectomy (~10/2017) S/P arthroscopy of left shoulder (~2001) H/O fasciotomy (~10/29/17) History of common carotid artery stent placement Most Recent Vital Signs Temperature 36.5 C 09/30/24 13:56 Temperature Source Oral 09/30/24 09:20 Pulse 64 09/30/24 14:16 Pulse Rhythm Regular 09/30/24 13:56 Pulse 68 09/30/24 12:05 Respiratory Rate 18 09/30/24 13:56 Respiratory Effort Normal, Non-Labored 09/30/24 13:56 Respiratory Depth Normal 09/30/24 13:56 Respiratory Pattern Normal 09/30/24 13:56 Blood Pressure 127/83 09/30/24 13:56 Blood Pressure Mean 92 09/30/24 12:05 Blood Pressure Position Sitting 09/30/24 09:20 Pulse Oximetry 98 09/30/24 13:56 Oxygen Delivery Method Room Air 09/30/24 13:56 Oxygen Flow Rate 0 09/30/24 13:56 Pain Level 3 09/30/24 15:29 Allergies ragweed pollen Allergy (Intermediate, Verified 08/07/24 10:14) stuffy, sneezing cephalexin Allergy (Mild, Verified 08/07/24 10:14) Skin Rash Active Medications Generic Name Dose Route Start Last Admin Trade Name Freq PRN Reason Stop Dose Admin Acetaminophen 650 mg 09/30/24 13:55 09/30/24 15:29 Acetaminophen 325 Mg Tab PO 650 mg Q4H PRN PRN Administration Docusate Sodium 100 mg 09/30/24 14:00 09/30/24 15:25 Docusate Sodium 100 Mg Cap PO 100 mg TID LINDA Administration IV IV Catheter Type [Left Saline Lock Antecubital] IV Catheter Gauge [Left 18 Antecubital] Diet Orders Category Date Time Status Heart Healthy Eating [DIET] Nutrition 09/30/24 Lunch Active Diagnostics 09/30/24 09/30/24 09/30/24 Range/Units 14:10 12:08 11:05 WBC (4.4-10.8) 10^3/uL RBC (3.93-5.22) 10^6/uL Hgb (11.2-15.7) g/dL Hct (36.0-46.0) % MCV (80-95) fL MCH (27.0-33.0) pg MCHC (32.0-36.0) % RDW (11.7-14.6) % Plt Count (130-400) 10^3/uL MPV (8.0-11.0) fL Immature Gran % % Neutrophils % % Lymphocytes % % Monocytes % % Eosinophils % % Basophils % % Nucleated RBC % (0.0-0.3) % Absolute Neutrophils (1.2-6.7) 10^3/uL Absolute Lymphocytes (1.2-3.4) 10^3/uL Absolute Monocytes (0.1-0.8) 10^3/uL Absolute Eosinophils (0.0-0.7) 10^3/uL Absolute Basophils (0.0-0.2) 10^3/uL PT (9.1-11.1) sec INR (0.9-1.1) APTT (20.6-30.2) sec Sodium (136-145) mmol/L Potassium (3.5-5.1) mmol/L Chloride (98-107) mmol/L Carbon Dioxide (21.0-32.0) mmol/L Anion Gap (3-11) mmol/L BUN (7-18) mg/dL Creatinine (0.55-1.02) mg/dL Est GFR (CKD-EPI 2020) (mL/min/1.73m2) Glucose (74-106) mg/dL Hemoglobin A1c (<5.7) % Calcium (8.5-10.1) mg/dL Magnesium (1.8-2.4) mg/dL Total Bilirubin (0.2-1.0) mg/dL AST (15-37) U/L ALT (14-59) U/L Alkaline Phosphatase (46-116) U/L Troponin I 8 6 (<or=51) ng/L Total Protein (6.4-8.2) g/dL Albumin (3.4-5.0) g/dL Triglycerides (<150) mg/dL Total Cholesterol (<200) mg/dL LDL Cholesterol, Calc (<100) mg/dL HDL Cholesterol (>or=50) mg/dL TSH (0.36-3.74) uIU/mL Urine Color Straw (Yellow) Urine Clarity Clear (Clear) Urine pH 7.5 (5-8) Ur Specific Willcox 1.010 (1.005-1.025) Urine Protein Negative (Neg-Trace) mg/dL Urine Ketones Negative (Negative) mg/dL Urine Blood Negative (Negative) Urine Nitrite Negative (Negative) Urine Bilirubin Negative (Negative) Urine Urobilinogen 0.2 (Up to 0.2) mg/dL Ur Leukocyte Esterase Negative (Negative) Urine Glucose Negative (Negative) mg/dL Urine Opiates Screen Negative (Negative) Urine Methadone Screen Negative (Negative) Ur Barbiturates Screen Negative (Negative) Ur Tricyclics Screen Negative (Negative) Ur Amphetamines Screen Negative (Negative) U Benzodiazepines Scrn Negative (Negative) Urine Cocaine Screen Negative (Negative) Ur THC Screen Negative (Negative) 09/30/24 09/30/24 Range/Units 09:54 07:22 WBC 7.36 (4.4-10.8) 10^3/uL RBC 3.79 L (3.93-5.22) 10^6/uL Hgb 13.1 (11.2-15.7) g/dL Hct 38.9 (36.0-46.0) % MCV 103 H (80-95) fL MCH 34.6 H (27.0-33.0) pg MCHC 33.7 (32.0-36.0) % RDW 11.2 L (11.7-14.6) % Plt Count 264 (130-400) 10^3/uL MPV 10.8 (8.0-11.0) fL Immature Gran % 0.1 % Neutrophils % 52.9 % Lymphocytes % 35.5 % Monocytes % 8.3 % Eosinophils % 2.7 % Basophils % 0.5 % Nucleated RBC % 0.0 (0.0-0.3) % Absolute Neutrophils 3.89 (1.2-6.7) 10^3/uL Absolute Lymphocytes 2.61 (1.2-3.4) 10^3/uL Absolute Monocytes 0.61 (0.1-0.8) 10^3/uL Absolute Eosinophils 0.20 (0.0-0.7) 10^3/uL Absolute Basophils 0.04 (0.0-0.2) 10^3/uL PT 10.4 (9.1-11.1) sec INR 1.0 (0.9-1.1) APTT 26.8 (20.6-30.2) sec Sodium 139 (136-145) mmol/L Potassium 3.4 L (3.5-5.1) mmol/L Chloride 102 (98-107) mmol/L Carbon Dioxide 28.2 (21.0-32.0) mmol/L Anion Gap 8.8 (3-11) mmol/L BUN 10 (7-18) mg/dL Creatinine 0.7 (0.55-1.02) mg/dL Est GFR (CKD-EPI 2020) 109.30 (mL/min/1.73m2) Glucose 94 (74-106) mg/dL Hemoglobin A1c 5.6 (<5.7) % Calcium 9.1 (8.5-10.1) mg/dL Magnesium 2.2 (1.8-2.4) mg/dL Total Bilirubin 0.6 (0.2-1.0) mg/dL AST 23 (15-37) U/L ALT 24 (14-59) U/L Alkaline Phosphatase 71 (46-116) U/L Troponin I 6 (<or=51) ng/L Total Protein 7.4 (6.4-8.2) g/dL Albumin 4.1 (3.4-5.0) g/dL Triglycerides 92 (<150) mg/dL Total Cholesterol 147 (<200) mg/dL LDL Cholesterol, Calc 63 (<100) mg/dL HDL Cholesterol 66 (>or=50) mg/dL TSH 1.28 (0.36-3.74) uIU/mL Urine Color (Yellow) Urine Clarity (Clear) Urine pH (5-8) Ur Specific Willcox (1.005-1.025) Urine Protein (Neg-Trace) mg/dL Urine Ketones (Negative) mg/dL Urine Blood (Negative) Urine Nitrite (Negative) Urine Bilirubin (Negative) Urine Urobilinogen (Up to 0.2) mg/dL Ur Leukocyte Esterase (Negative) Urine Glucose (Negative) mg/dL Urine Opiates Screen (Negative) Urine Methadone Screen (Negative) Ur Barbiturates Screen (Negative) Ur Tricyclics Screen (Negative) Ur Amphetamines Screen (Negative) U Benzodiazepines Scrn (Negative) Urine Cocaine Screen (Negative) Ur THC Screen (Negative) Intake and Output - 24 Hour Total 09/30/24 09:16 thru 09/30/24 18:18 Intake Total 10 Balance 10 Weight 21.5 kg Intake: IV 10 Other: Comment pT stated that she had voided a couple of times. Falls Risk Assessment History of Falls No History 09/30/24 13:56 Contributing Factors No Factors 09/30/24 13:56 Ambulatory Aids Independent 09/30/24 13:56 Tubes/Lines None 09/30/24 13:56 Gait Evaluation No gait disturbance 09/30/24 13:56 Cognition No cognitive impairment 09/30/24 13:56 Fall Total Score 0 09/30/24 13:56 Level of Risk Standard/Low Risk 09/30/24 13:56 Problems (Last Updated 08/07/24 @ 10:38 by Sue Crum NP) Acute CVA (cerebrovascular accident) (Acute) Essential hypertension (Acute) Hypothyroidism (Chronic 2008) Congenital solitary kidney (Acute) v v v v v v v v v Sending and/or Receiving Nurses: Please use comment section below to note any information pertinent to the patient hand-off not included above. Information / Comments: Report received from: Report received from Laquita at 1335. Patient is stable and ambulatory.
[2024-09-30] MEDS: Normal Saline Flush 10 ML SYR IVP (19:31)
[2024-10-01 03:40] VITALS: BP 111/74; PULSE 50; RESP 18; TEMP 36.6; O2SAT 98
[2024-10-01 06:50] LABS: Abs Immature Grans 0.01 10^3/uL (0.0-0.06); HCT 42.8 % (36.0-46.0); HGB 14.5 g/dL (11.2-15.7); Immature Grans % 0.2 %; MCH 34.9 pg (27.0-33.0); MCHC 33.9 % (32.0-36.0); MCV 103 fL (80-95); MPV 11.0 fL (8.0-11.0); Platelet Count 268 10^3/uL (130-400); RBC 4.15 10^6/uL (3.93-5.22); RDW 11.0 % (11.7-14.6); RDW-SD 42.5 fL; WBC 6.40 10^3/uL (4.4-10.8)
[2024-10-01 07:01] LABS: Anion Gap 9.3 mmol/L (3-11); BUN 19 mg/dL (7-18); CO2 27.7 mmol/L (21.0-32.0); Calcium 8.9 mg/dL (8.5-10.1); Chloride 105 mmol/L (98-107); Estimated GFR 93.12 (mL/min/1.73m2); Glucose 97 mg/dL (74-106); Potassium 4.1 mmol/L (3.5-5.1); Sodium 142 mmol/L (136-145)
[2024-10-01 07:44] VITALS: BP 111/79; PULSE 55; RESP 16; TEMP 36.3; O2SAT 98
--- NOTE | 2024-10-01 09:15 | PDOC.CMIN ---
Date of service: 10/01/24 Time of Service: 09:15 Care Management Initial Assmt Initial Assessment Reason for Hospitalization: Appendicitis Functional Status/Living Situation Town of Residence: [place] Advance Directives Advance Directives: Do you have an Advance Directive: N 04/12/22, 11:37 AD On File at [facility]: N 04/12/22, 11:37 Date Asked 09/30/24 09/30/24, 09:21 AD Date Reviewed 09/30/24 09/30/24, 12:40 COLST On File at [facility] COLST Date Scanned Code Status Resuscitation Status Full Code Care Team Visit Care Team Role Provider Type Kiana Almazan APRN MD [facility] STAFF PHYSICIAN uSe Crum NP Primary Care Provider NURSE PRACTITIONER InPatient John Patel Other Providers OTHER Nimco Landon MD Emergency Provider [facility] STAFF PHYSICIAN Perry Elkins MD Admit Provider [facility] STAFF PHYSICIAN Attending Provider Social Determinants of Health Screening Social Determinants of health last assessed in clinic: 09/30/24 Will the Patient Participate in the Screening?: Yes Do you worry about having a steady place to live?: no Problems where you live: no known problems In the past 12 months, have you had to go without electric, gas, oil or water in your home?: no Has lack of transportation kept you from medical appointments or from doing things needed for daily living?: no Has anyone in your life made you feel unsafe or unsupported?: no How hard is it for you to pay for the very basics like food, housing, medical care, and heating? Would you say it is:: Not hard at all Do you want help finding or keeping work or a job?: I do not need or want help If for any reason you need help with day-to-day activities such as bathing, preparing meals, shopping, managing finances, etc., do you get the help you need?: I don?t need any help How often do you feel lonely or isolated from those around you?: Never Do you speak a language other than Irish at home?: No Does the patient want assistance with any of the above?: No PFSH All Active Problems (Updated 09/30/24 @ 11:23 by Nimco Landon MD) Acute CVA (cerebrovascular accident) (Acute) Impaired fasting glucose (Chronic) Otalgia of left ear (Acute) Tonsil asymmetry (Acute) Acute dysfunction of both eustachian tubes (Acute) Sensorineural hearing loss (SNHL) of both ears (Acute) Vitamin D deficiency (Acute) Essential hypertension (Acute) <130/80 Dr [place] Stroke (Chronic ~08/2021) right middle cerebellar peduncle and posterior right xavier infarct-->[facility] [place] Hypothyroidism (Chronic 2007) S/p I?131 ablation for Graves' disease 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 Osteoporosis (Chronic ~2018) Severe T score -4.9 spine, -3.6 hip RECLAST: She's had it x5--07/2020 and 08/2021; pending 2022 Last DEXA 03/2022 Medical History (Updated 09/30/24 @ 11:23 by Nimco Landon MD) Closed fracture of 3rd metacarpal Elevated BUN Solitary kidney Irritable bowel syndrome Femoral artery occlusion, right (~10/2017) Depression Carotid artery dissection Left-sided nontraumatic intracerebral hemorrhage (10/30/17) Stroke (~11/13/16) (R) MCA s/p TPA due to (R) ICA dissection Surgical History History of endarterectomy (~10/2017) R ileofemoral S/P arthroscopy of left shoulder (~2001) H/O fasciotomy (~10/29/17) RLE History of common carotid artery stent placement Family History (Updated 08/07/24 @ 09:[address] RN) Mother Age: 67 Hypothyroid Lupus Cervical cancer Lung cancer Thyroid cancer Father ALS (amyotrophic lateral sclerosis) Substance abuse Grandmother Neoplasm breast--PGM Paternal Grandfather Substance abuse Maternal Grandfather Heart disease Social History (Updated 08/07/24 @ 10:[address] RN) Smoking/Tobacco Use Status: Former Tobacco Use Quit Date: 11/10/16 Tobacco: How many years used: 24 Quit status: has quit before Smoking risk assessment performed?: Yes Alcohol Intake: current Alcohol Intake frequency: a few times a week Alcohol type: beer Drug use: Never Substance use type: does not use Adopted: No Caregiver/Support person: No Foster care: No Household members: none Housing: apartment Number of Children: 0 Communication Needs: Corrective Lenses Education Level: high school Do you need help understanding health information?: Rarely current occupation: [employer] Pets and animals: Yes (1) Pets and animals: cat(s) Sexually active: Yes Do you think of yourself as: straight/heterosexual Current gender identity: female What is your relationship status?: How often do you talk on the phone with friends or family?: three or more times per week How often do you get together with friends or relatives?: three or more times per week How often do you attend scientology or alevism services?: decline to answer Do you belong to any clubs or organized social groups?: no Panel score (0-1 are the most socially isolated patients): 1 What type of physical activity do you participate in: walking Duration: > 90 minutes/day Frequency: 5-6 times per week Seatbelt use: always Helmet use: Yes Drive intox or ride w/intox crude oil 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
--- NOTE | 2024-10-01 09:28 | DSE_ITS ---
Date of service: 10/01/24 Time of Service: 09:28 DS: Diagnosis Discharge Diagnosis (1) Acute CVA (cerebrovascular accident): Status: Acute (2) Left-sided nontraumatic intracerebral hemorrhage: (3) Essential hypertension: Status: Acute (4) Hypothyroidism: Status: Chronic (5) Congenital solitary kidney: Status: Acute (6) Depression: Discharge Plan Disposition Patient Disposition: Home Condition: Improving Discharge Details Reason For Visit: CVA Admit Date/Time: 09/30/24 11:49 Admit Provider: Perry Elkins Attending Provider: Perry Elkins Primary Care Provider: Sue Crum Hospital Course Hospital Course: This 44 year old female patient with PMHx significant for right cerebellar and xavier infarcts/ CVA related to severe intracranial atherosclerosis, HTN ,carotid stenosis, carotid dissection, hypothyroid, Spence syndrome, congenital solitary kidney, insomnia, osteoporosis presented to [facility] via private car for evaluation of with mild dysarthria, left facial paresthesia similar to previous presentation of CVA starting after 07:30. Head and neck CTA negative for new acute findings. Blood work was normal except for potassium at 3.4. Teleneuro [place] with [facility] [place] that exam findings were consistent with acute stroke, but given minor symtpoms, low NIH scale the fact that the patient did not want thrombolytics, no recommendations made for tPA. Recommendations made for admission and stroke work-up with ASA full dose, plavix load, and restarting DOAC as per ED provider, also recommendations for MRI and hypercoagulopathy work-up emitted. The patient was admitted to the medical surgical floor with telemetry. MRI was negative for new / acute findings. DOAC started as per recommendation from [facility] tele-neurology as reported by ED provider was discontinued s/p official tele-neurology report read. Statin dose was increased. Echocardiogram showed no PFO;complete report to follow. On telemetry the patient remained in a sinusal rhythm without ectopy. The patient will be discharge home with follow-up with PCP will need a neurology referral outpatient. On the day of discharge the patient was hemodynamically stable without reoccurrence of symptoms. Recommendation for PCP follow-up: -Please follow-up on Thrombophilic/ hypercoagulability panel results- -Homocysteine still needed -Fasting required -Neurology referral please -Vascular referral please: CTA neck: Stable appearance of dissection flap of the distal right internal carotid artery with distal few small rim dilatation extending to the level of the skull base. Approximate 70 percent stenosis of the proximal left external carotid artery. -Cardiology referral Discussed with Dr. Elkins Recommendations for Follow Up Recommended tests to be ordered by follow up provider: hypercoagulability/thrombophilia panel Home Meds and New Rx's Prescriptions: New docusate sodium [Colace] 100 mg Capsule 100 mg PO DAILY Qty: 30 0RF Continued cholecalciferol (vitamin D3) 50 mcg (2,000 unit) capsule 50 mcg PO DAILY Qty: 90 3RF Rx Instructions: osteoporosis & vit D deficiency loratadine [Claritin] 10 mg tablet 10 mg PO DAILY aspirin [Aspir-81] 81 MG tablet,delayed release (DR/EC) 81 mg PO DAILY clopidogrel 75 mg tablet See Rx Instructions .ROUTE .COMPLEX Qty: 90 3RF Dose Instruction: TAKE ONE TABLET BY MOUTH EVERY DAY. Rx Instructions: TAKE ONE TABLET BY MOUTH EVERY DAY. amlodipine 5 mg tablet 5 mg PO DAILY Qty: 90 3RF Rx Instructions: Blood pressure; goal <130/80 levothyroxine 88 mcg tablet See Rx Instructions .ROUTE .COMPLEX Qty: 90 3RF Dose Instruction: TAKE ONE TABLET BY MOUTH EVERY DAY Rx Instructions: TAKE ONE TABLET BY MOUTH EVERY DAY Changed rosuvastatin [Crestor] 20 mg tablet 40 mg PO DAILY Qty: 90 3RF Discharge Instructions Referrals: Sue Crum [employer]YER [Primary Care Provider, Medicine] Referral Note: Follow-up within 7 days of discharge Activity:: Activity as Tolerated Equipment/Supplies:: No Equipment Needed Diet:: heart healthy Discharge Orders Discharge Orders: Discharge Order (Routine); Ordered 10/01/24 Ordered By: Kiana Almazan DS: Summary Time Spent with Patient providing and/or coordinating discharge services: Greater than 30 minutes Status at Discharge Functional status at discharge: independent ambulation Overall status at discharge: patient is progressing back to baseline Mental Status: mental status grossly normal Speech and Movement: speech and movement normal Mood: congruent mood Affect: normal affect Exam Narrative Exam Narrative: Alert and oriented X4 , no acute focal neuro-deficit , NIH scale remained negative , clear lungs, S1, S2 , regular, abdomen in non-acute, no CVA tenderness Psych Mental Status: mental status grossly normal Speech and Movement: speech and movement normal Mood: congruent mood Affect: normal affect DS: Data Vitals/I&O Vitals and I&O: Vital Signs Temperature 36.3 C L 10/01/24 07:44 Temperature Source Temporal Artery Scan 10/01/24 07:44 Pulse 55 L 10/01/24 07:44 Pulse Rhythm Regular 09/30/24 13:56 Pulse 68 09/30/24 12:05 Respiratory Rate 16 10/01/24 07:44 Respiratory Effort Normal, Non-Labored 09/30/24 13:56 Respiratory Depth Normal 09/30/24 13:56 Respiratory Pattern Normal 09/30/24 13:56 Blood Pressure 111/79 10/01/24 07:44 Blood Pressure Mean 89 10/01/24 07:44 Blood Pressure Position Sitting 09/30/24 09:20 Pulse Oximetry 98 10/01/24 07:44 Oxygen Delivery Method Room Air 10/01/24 07:44 Oxygen Flow Rate 0 10/01/24 07:44 Pain Level 0 10/01/24 03:40 Intake & Output 09/30/24 09/30/24 10/01/24 11:59 23:59 11:59 Intake Total Balance Weight 42 kg 21.5 kg Intake: IV Other: Urine Color Yellow Urine Appearance Clear Comment pT stated that she had voided a couple of times. Data Completed and Pending Labs on day of discharge: Labs from last 24 hours 10/01/24 09/30/24 09/30/24 06:18 14:10 12:08 WBC 6.40 RBC 4.15 Hgb 14.5 Hct 42.8 MCV 103 H MCH 34.9 H MCHC 33.9 RDW 11.0 L Plt Count 268 MPV 11.0 Immature Gran % 0.2 Neutrophils % 55.4 Lymphocytes % 31.6 Monocytes % 7.8 Eosinophils % 3.9 Basophils % 1.1 Nucleated RBC % 0.0 Absolute Neutrophils 3.55 Absolute Lymphocytes 2.02 Absolute Monocytes 0.50 Absolute Eosinophils 0.25 Absolute Basophils 0.07 PT INR APTT Sodium 142 Potassium 4.1 Chloride 105 Carbon Dioxide 27.7 Anion Gap 9.3 BUN 19 H Creatinine 0.8 Est GFR (CKD-EPI 2020) 93.12 Glucose 97 Hemoglobin A1c Calcium 8.9 Magnesium Total Bilirubin AST ALT Alkaline Phosphatase Troponin I 8 Total Protein Albumin Triglycerides Total Cholesterol LDL Cholesterol, Calc HDL Cholesterol TSH Urine Color Straw Urine Clarity Clear Urine pH 7.5 Ur Specific Bellflower 1.010 Urine Protein Negative Urine Ketones Negative Urine Blood Negative Urine Nitrite Negative Urine Bilirubin Negative Urine Urobilinogen 0.2 Ur Leukocyte Esterase Negative Urine Glucose Negative Urine Opiates Screen Negative Urine Methadone Screen Negative Ur Barbiturates Screen Negative Ur Tricyclics Screen Negative Ur Amphetamines Screen Negative U Benzodiazepines Scrn Negative Urine Cocaine Screen Negative Ur THC Screen Negative 09/30/24 09/30/24 09/30/24 11:05 09:54 07:22 WBC 7.36 RBC 3.79 L Hgb 13.1 Hct 38.9 MCV 103 H MCH 34.6 H MCHC 33.7 RDW 11.2 L Plt Count 264 MPV 10.8 Immature Gran % 0.1 Neutrophils % 52.9 Lymphocytes % 35.5 Monocytes % 8.3 Eosinophils % 2.7 Basophils % 0.5 Nucleated RBC % 0.0 Absolute Neutrophils 3.89 Absolute Lymphocytes 2.61 Absolute Monocytes 0.61 Absolute Eosinophils 0.20 Absolute Basophils 0.04 PT 10.4 INR 1.0 APTT 26.8 Sodium 139 Potassium 3.4 L Chloride 102 Carbon Dioxide 28.2 Anion Gap 8.8 BUN 10 Creatinine 0.7 Est GFR (CKD-EPI 2020) 109.30 Glucose 94 Hemoglobin A1c 5.6 Calcium 9.1 Magnesium 2.2 Total Bilirubin 0.6 AST 23 ALT 24 Alkaline Phosphatase 71 Troponin I 6 6 Total Protein 7.4 Albumin 4.1 Triglycerides 92 Total Cholesterol 147 LDL Cholesterol, Calc 63 HDL Cholesterol 66 TSH 1.28 Urine Color Urine Clarity Urine pH Ur Specific Bellflower Urine Protein Urine Ketones Urine Blood Urine Nitrite Urine Bilirubin Urine Urobilinogen Ur Leukocyte Esterase Urine Glucose Urine Opiates Screen Urine Methadone Screen Ur Barbiturates Screen Ur Tricyclics Screen Ur Amphetamines Screen U Benzodiazepines Scrn Urine Cocaine Screen Ur THC Screen PFSH All Active Problems (Updated 09/30/24 @ 11:23 by Nimco Landon MD) Acute CVA (cerebrovascular accident) (Acute) Impaired fasting glucose (Chronic) Otalgia of left ear (Acute) Tonsil asymmetry (Acute) Acute dysfunction of both eustachian tubes (Acute) Sensorineural hearing loss (SNHL) of both ears (Acute) Vitamin D deficiency (Acute) Essential hypertension (Acute) <130/80 Dr [place] Stroke (Chronic ~08/2021) right middle cerebellar peduncle and posterior right xavier infarct-->[facility] [place] Hypothyroidism (Chronic 2007) S/p I?131 ablation for Graves' disease 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 Osteoporosis (Chronic ~2018) Severe T score -4.9 spine, -3.6 hip RECLAST: She's had it x5--07/2020 and 08/2021; pending 2022 Last DEXA 03/2022 Medical History (Updated 09/30/24 @ 11:23 by Nimco Landon MD) Closed fracture of 3rd metacarpal Elevated BUN Solitary kidney Irritable bowel syndrome Femoral artery occlusion, right (~10/2017) Depression Carotid artery dissection Left-sided nontraumatic intracerebral hemorrhage (10/30/17) Stroke (~11/13/16) (R) MCA s/p TPA due to (R) ICA dissection Surgical History History of endarterectomy (~10/2017) R ileofemoral S/P arthroscopy of left shoulder (~2001) H/O fasciotomy (~10/29/17) RLE History of common carotid artery stent placement Family History (Updated 08/07/24 @ 09:[address] RN) Mother Age: 67 Hypothyroid Lupus Cervical cancer Lung cancer Thyroid cancer Father ALS (amyotrophic lateral sclerosis) Substance abuse Grandmother Neoplasm breast--PGM Paternal Grandfather Substance abuse Maternal Grandfather Heart disease Social History (Updated 08/07/24 @ 10:[address] RN) Smoking/Tobacco Use Status: Former Tobacco Use Quit Date: 11/10/16 Tobacco: How many years used: 24 Quit status: has quit before Smoking risk assessment performed?: Yes Alcohol Intake: current Alcohol Intake frequency: a few times a week Alcohol type: beer Drug use: Never Substance use type: does not use Adopted: No Caregiver/Support person: No Foster care: No Household members: none Housing: apartment Number of Children: 0 Communication Needs: Corrective Lenses Education Level: high school Do you need help understanding health information?: Rarely current occupation: [employer] Pets and animals: Yes (1) Pets and animals: cat(s) Sexually active: Yes Do you think of yourself as: straight/heterosexual Current gender identity: female What is your relationship status?: How often do you talk on the phone with friends or family?: three or more times per week How often do you get together with friends or relatives?: three or more times per week How often do you attend episcopalian or church services?: decline to answer Do you belong to any clubs or organized social groups?: no Panel score (0-1 are the most socially isolated patients): 1 What type of physical activity do you participate in: walking Duration: > 90 minutes/day Frequency: 5-6 times per week Seatbelt use: always Helmet use: Yes Drive intox or ride w/intox pick up truck 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 Time Spent with Patient Time Spent with Patient: 70-84 minutes4 Time was spent: preparing to see the patient(eg.review tests), obtaining and/or reviewing separately otained hiistory, ordering medications,tests, procedures, referring, communicating with other health continuum of care manager, indepentently interpreting results, counseling the patient and care coordination
--- NOTE | 2024-10-01 10:05 | PDOC.CMDIS ---
Date of service: 10/01/24 Time of Service: 10:06 LACE Index Scoring Tool Questions: Length of Stay (in days): 1 Was the patient admitted via the E.D.?: Yes E.D. Visits: 1 Answers: Total Score: 5 Risk of Readmission: Low Risk Care Management Discharge Plan Reason for Hospitalization: CVA Discharge Plan: Chelle will be discharged home today with Anali and her copay will be $3.00, CM reviewed this with the patient who expressed understanding is agreeable. She will follow up with her community providers, and discharge plan of care. She will be transported via private vehicle by her mom. Patient/Family Education Needs: Review of discharge instructions, activity, limitation, and plan of care. Discuss Ask me three.
[2024-10-01] MEDS: Docusate Sodium 100 MG CAP PO ×2 (10:32→15:46)
[2024-10-01] MEDS: Clopidogrel 75 MG TAB PO (10:32)
[2024-10-01 11:36] VITALS: BP 114/79; PULSE 63; RESP 15; TEMP 36.4; O2SAT 100
[2024-10-01 15:44] VITALS: BP 109/74; PULSE 62; RESP 14; TEMP 36.7; O2SAT 98
[2024-10-01 17:01] LABS: Lab Add On Test DONE
[2024-10-02 18:08] LABS: Fibrinogen 290 mg/dL (171-384)
[2024-10-03 10:06] LABS: Factor 8 Assay 110 % (50-150)
[2024-10-04 11:45] LABS: Protein S Ag, Free 112 % (50 - 160)
[2024-10-06 21:18] LABS: Beta 2 GP1 Ab IgG <9.4 SGU; Beta 2 GP1 Ab IgM <9.4 SMU
[2024-10-07 16:18] LABS: Protein C Ag, P 84 % (72-160)
[2024-10-08 09:57] LABS: Factor V Leiden(R506Q) Mut Negative (Negative)
[2024-10-08 11:36] LABS: Protein C, Functional 123 % (71-199); Protein S, Functional 121 % (64-147)
[2024-10-15 20:10] LABS: Thrombin-Antithrombin Complex 3.5 ng/mL
== END 2024-10-01 19:04 | disposition home or self-care (01) ==
LOC: ER 12:40 → MS 13:52
PROVIDERS: Admitting Provider Family Medicine; Emergency Provider Emergency Medicine; PCP Nurse Practitioner Adult Health; Responsible Provider Nurse Practitioner Acute Care; Visit Provider Family Medicine
DX: I63.59 Cerebral infarction due to unspecified occlusion or stenosis of other cerebral artery (principal); I10 Essential (primary) hypertension; E03.9 Hypothyroidism, unspecified; Q60.0 Renal agenesis, unilateral; F34.1 Dysthymic disorder; Z86.73 Personal history of transient ischemic attack (TIA), and cerebral infarction without residual deficits; Q96.9 Turner's syndrome, unspecified; G47.00 Insomnia, unspecified; M81.0 Age-related osteoporosis without current pathological fracture; R47.1 Dysarthria and anarthria; R20.2 Paresthesia of skin; I77.71 Dissection of carotid artery; I65.22 Occlusion and stenosis of left carotid artery; R73.01 Impaired fasting glucose; H90.3 Sensorineural hearing loss, bilateral; E55.9 Vitamin D deficiency, unspecified; R35.0 Frequency of micturition; K58.9 Irritable bowel syndrome, unspecified; F32.A Depression, unspecified; Z95.828 Presence of other vascular implants and grafts; Z87.891 Personal history of nicotine dependence
CPT/HCPCS: 00123; 36415; 70496; 70498; 80048; 80053; 80061; 80307; 81240; 81241; 83090; 83520; 85245; 85302; 85305; 85306; 85384; 86146; 86147; 87116; 93005; 97161; 99285; 70551; 81003; 83036; 83735; 84443; 84484; 85025; 85240; 85303; 85610; 85730; 93010; 93306; 99223; 99239; G0378; J3490